=== PATIENT | male | born 1965 | race Caucasian/White ===

== ENCOUNTER 2020-08-26 10:15 | Inpatient (IN) | payer OTHER, SELFPAY ==
[~2020-08-26] VITALS: Ht 170.2 cm; Wt 69.9 kg
[2020-08-26 10:15] VITALS: BP 116/76
--- NOTE | 2020-08-26 10:30 | NUR ---
55 YEAR OLD MALE BIBA FOR SHORTNESS OF BREATHE X 4 DAYS. PT STATES HE TESTED COVID POSITIVE 4 DAYS AGO. PER EMS PT WAS 02 SATURATION IN 60S ON ROOM AIR. PT ARRIVED, PLACED ON 13L NRB MASK, O2 SATURATION 91%, RR 22. PT LUNGS CLEAR BL. PT AOX4, BREATHING EVEN AND UNLABORED, SKIN WARM AND DRY. BED IN LOWEST POSITION, LOCKED, BED RAIL UPX1. PT PLACED ON MONITOR, ERMD AWARE OF PT STATUS PMH - DENIES ALLERGIES - NKA
[2020-08-26] MEDS ORDERED: AZITHROMYCIN 500 MG in DEXTROSE 5% 250 ML IV ONE (10:35)
[2020-08-26] MEDS ORDERED: DEXAMETHASONE 10 MG/ML VIAL IVP ONE (10:35)
[2020-08-26 10:57] LABS: BASOPHILS # (AUTO) 0.1 K/uL (0.00-0.22); BASOPHILS % (AUTO) 0.4 % (0.0-2.0); HEMOGLOBIN 15.1 g/dL (12.0-18.0); LYMPHOCYTES # (AUTO) 0.6 K/uL (2.0-11.5); LYMPHOCYTES % (AUTO) 4.1 % (20.5-51.1); MEAN CORPUSCULAR HEMOGLOBIN 31 pg (27-31); MEAN CORPUSCULAR HGB CONC 34 g/dL (33-37); MEAN CORPUSCULAR VOLUME 89.9 fL (80-94); MONOCYTES # (AUTO) 0.9 K/uL (0.8-1.0); MONOCYTES % (AUTO) 6.4 % (1.7-9.3); NEUTROPHILS # (AUTO) 12.6 K/uL (1.8-7.7); NEUTROPHILS % (AUTO) 89.1 % (42.2-75.2); PLATELET COUNT (AUTO) 309 K/uL (140-450); RED BLOOD CELL COUNT(AUTO) 4.89 MIL/uL (4.20-6.10); WHITE BLOOD COUNT (AUTO) 14.2 K/uL (4.8-10.8)
[2020-08-26] MEDS ORDERED: cefTRIAXone 1,000 MG VIAL ONE (11:00)
--- NOTE | 2020-08-26 11:06 | NUR ---
[facility] [phone]
[2020-08-26 11:14] LABS: FIBRINOGEN 456 mg/dL (200-400); PROTHROMBIN TIME 10.4 secs (10.8-13.4)
[2020-08-26 11:20] LABS: ANION GAP 15.4 (8-16); CARBON DIOXIDE 24.4 mmol/L (21-32); LACTATE DEHYDROGENASE 762 U/L (85-227); POTASSIUM 3.8 mmol/L (3.5-5.1)
[2020-08-26 11:24] LABS: C-REACTIVE PROTEIN QUANT 3.8 mg/dL (0.0-0.9)
[2020-08-26 11:26] LABS: ALBUMIN 3.1 g/dL (3.4-5.0); TOTAL BILIRUBIN 0.4 mg/dL (0.0-1.0)
--- NOTE | 2020-08-26 11:34 | NUR ---
FLU AND COVID SWAB SENT TO LAB
[2020-08-26] MEDS ORDERED: AZITHROMYCIN 500 MG INJ VIAL IV ONE ×2 (11:39→12:42)
--- NOTE | 2020-08-26 12:00 | NUR ---
PT ALERT AND AWAKE, BREATHING EVEN AND LABORED ON NRB 15L. PT REMAINS ON MONITOR, TACHYPNEA
[2020-08-26 12:03] LABS: D-DIMER < 100 ng/ml (0-400)
[2020-08-26 12:13] LABS: APPEARANCE,URINE CLEAR (CLEAR); BILIRUBIN,URINE NEGATIVE (NEGATIVE); COLOR,URINE YELLOW (YELLOW); LEUKOCYTE ESTERASE ,URINE NEGATIVE (NEGATIVE); NITRITE, URINE NEGATIVE (NEGATIVE); PH,URINE 6.5 (5.0-9.0); UGLUCOSE NEGATIVE (NEGATIVE)
[2020-08-26 12:18] LABS: BLOOD, URINE 1+ (NEGATIVE); RBC,URINE 0-5 /HPF (0-5); WBC,URINE 0-5 /HPF (0-5)
--- NOTE | 2020-08-26 13:30 | NUR ---
PT ALERT AND AWAKE, BREATHING EVEN AND LABORED ON NRB 15L. PT REMAINS ON MONITOR, TACHYPNEA
[2020-08-26] MEDS ORDERED: POTASSIUM CHLORIDE 10 MEQ TABER PO PRN (13:40)
[2020-08-26] MEDS ORDERED: HYDROcodone/APAP 7.5/325 MG 1 TAB PO PRN (13:40)
[2020-08-26] MEDS ORDERED: DOCUSATE SODIUM 100 MG GELCAP PO PRN (13:40)
[2020-08-26] MEDS ORDERED: ALBUTEROL HFA MDI 90 MCG/ACTUATION 8 GM INH PRN (13:40)
[2020-08-26] MEDS ORDERED: ACETAMINOPHEN 325 MG TAB PO PRN (13:40)
[2020-08-26] MEDS ORDERED: ONDANSETRON 4 MG/2 ML VIAL IM/IVP PRN (13:40)
[2020-08-26 14:11] LABS: CHOL/HDL RATIO 4.2 (1-4.5); FREE T4 (FREE THYROXINE) 1.11 ng/dL (0.76-1.46); MAGNESIUM 2.4 mg/dL (1.8-2.4); PHOSPHORUS 3.5 mg/dL (2.5-4.9); THYROID STIMULATING HORMONE 0.42 uIU/mL (0.34-3.74)
[2020-08-26 14:44] LABS: BARBITURATE, URINE NEGATIVE ng/ml (NEG <=200); BENZODIAZEPINE, URINE NEGATIVE ng/mL (NEG <=200); CANNABINOID, URINE NEGATIVE ng/mL (NEG <=50); COCAINE, URINE NEGATIVE ng/mL (NEG <=300); OPIATE, URINE NEGATIVE ng/mL (NEG <=2000); PHENCYCLIDINE SCREEN,URINE NEGATIVE ng/mL (NEG <=25)
--- NOTE | 2020-08-26 15:30 | NUR ---
PT ALERT AND AWAKE, BREATHING EVEN AND LABORED ON NRB 15L. PT REMAINS ON MONITOR, TACHYPNEA
--- NOTE | 2020-08-26 16:30 | NUR ---
PT EATING LUNCH TRAY AT THIS TIME
[2020-08-26] MEDS ORDERED: MORPHINE SULFATE 4 MG/ML SYR IVP PRN (17:45)
--- NOTE | 2020-08-26 17:45 | NUR ---
PT ALERT AND AWAKE, BREATHING EVEN AND LABORED ON NRB 15L. PT REMAINS ON MONITOR, TACHYPNEA
[2020-08-26] MEDS ORDERED: MORPHINE SULFATE 4 MG/ML SYR ONE (17:59)
--- NOTE | 2020-08-26 18:09 | NUR ---
PRN MEDICATION FOR TACHYPNEA/DYSPNEA GIVEN PER VERBAL ORDER FROM PULMONOLOGY DOCTOR. PT UNDERSTANDS HE MUST BE IN PRONE POSITION FOR BETTER BREATHING. BEDSIDE COMMODE PLACED NEAR PT
--- NOTE | 2020-08-26 19:15 | NUR ---
REPORT RECEIVED FROM RUDDY SCHAEFER FOR CONTINUITY OF CARE
--- NOTE | 2020-08-26 19:35 | NUR ---
PT ON NON REBREATHER 15L. O2 SATURATION%. PT IN PRONE POSITION. A&OX4. WILL CONTINUE TO MONITOR.
--- NOTE | 2020-08-26 20:37 | NUR ---
PT'S DAUGHTER CALLED PAUL, UPDATED ON PT STATUS.
--- NOTE | 2020-08-26 22:15 | NUR ---
PT ON NON REBREATHER 15L. O2 SATURATION 94%. PT IN PRONE POSITION. A&OX4. WILL CONTINUE TO MONITOR.
--- NOTE | 2020-08-27 00:04 | NUR ---
PT HAS EYES CLOSED, RESPIRATIONS EVEN AND UNLABORED. CHEST RISE IS SYMMETRICAL. PT ON NON REBREATHER 15L. O2 SATURATION 91%. PT IN PRONE POSITION. WILL CONTINUE TO MONITOR.
--- NOTE | 2020-08-27 03:05 | NUR ---
VALERIE CALL FROM PT'S ADALGISA, UPDATED ON PT STATUS. ALL QUESTIONS AND CONCERNS ANSWERED AT THIS TIME.
--- NOTE | 2020-08-27 05:30 | NUR ---
PT HAS EYES CLOSED, RESPIRATIONS EVEN AND UNLABORED. CHEST RISE IS SYMMETRICAL. PT ON NON REBREATHER 15L. O2 SATURATION 93%. PT IN PRONE POSITION. WILL CONTINUE TO MONITOR.
--- NOTE | 2020-08-27 07:19 | NUR ---
REPORT GIVEN TO JANICE SCHAEFER FOR CONTINUITY OF CARE
--- NOTE | 2020-08-27 07:20 | NUR ---
REPORT RECIEVED FROM OLIVE WANG, TRANSFER OF CARE AT THIS TIME.
--- NOTE | 2020-08-27 08:00 | NUR ---
BREAKFAST TRAY PROVIDED TO PT. SUEDING MACHINE TENDER IN PLACE. BED LOCKED AND IN LOWEST POSITION.
[2020-08-27] MEDS: ZINC SULF 220 MG CAP PO SCH (08:47)
[2020-08-27] MEDS: ASCORBIC ACID 500 MG TAB PO SCH (08:48)
[2020-08-27] MEDS: ENOXAPARIN 40 MG/0.4 ML SYR SUBQ SCH (08:49)
[2020-08-27 08:59] LABS: BASOPHILS % (AUTO) 0.1 % (0.0-2.0); HEMATOCRIT 44.8 % (36-52); LYMPHOCYTES # (AUTO) 0.8 K/uL (2.0-11.5); LYMPHOCYTES % (AUTO) 6.7 % (20.5-51.1); MEAN CORPUSCULAR HEMOGLOBIN 31 pg (27-31); MEAN CORPUSCULAR HGB CONC 34 g/dL (33-37); MEAN CORPUSCULAR VOLUME 90.9 fL (80-94); MONOCYTES % (AUTO) 8.2 % (1.7-9.3); NEUTROPHILS # (AUTO) 10.2 K/uL (1.8-7.7); PLATELET COUNT (AUTO) 328 K/uL (140-450); RED BLOOD CELL COUNT(AUTO) 4.93 MIL/uL (4.20-6.10); RED CELL DISTRIBUTION WIDTH 14.1 % (11.6-13.7)
[2020-08-27] MEDS ORDERED: AZITHROMYCIN 250 MG TAB PO SCH (09:00)
--- NOTE | 2020-08-27 09:00 | NUR ---
PT PLACED ON 12L OXIMIZER. PT SATING AT 92%. INDUSTRIAL CHEMIST/O2 SAT IN PLACE. BED LOCKED AND IN LOWEST POSITION. ALL PT NEEDS MED AT THIS TIME.
[2020-08-27 09:11] LABS: ANION GAP 28.4 (8-16); CARBON DIOXIDE 13.5 mmol/L (21-32); CREATININE 0.9 mg/dL (0.6-1.3); POTASSIUM 3.9 mmol/L (3.5-5.1)
--- NOTE | 2020-08-27 10:00 | NUR ---
pt resting in bed. equal chest rise and fall. bed locked and in lowest position. day care worker/pulse ox in place, oximizer in place. bed locked and in lowest position. pt given water per request. all needs met at this time. call light in reach.
--- NOTE | 2020-08-27 12:00 | NUR ---
pt provided with lunch tray. health diagnostics teacher/pulse ox in place. equal chest rise and fall. pt denies pain or feeling of dizziness. pt sating at 91% 12L oximizer. call light in reach, urinal at bedside. all pt needs met at this time.
--- NOTE | 2020-08-27 13:41 | NUR ---
SOCIAL WORK NOTE: SW WAS UNABLE TO MEET PATIENT AT BEDSIDE DUE TO MEDICAL CONDITION. ROSENDO CONTACTED EMERGENCY CONTACT AND LEFT VM TO COMPLETE ASSESSMENT. SW WILL FOLLOW UP. Addendum: 08/27/20 at 1436 by Nasri Silverio Patient's Orientation Unable To Assess Information Provided By PAUL MILLS - DAUGHTER Comments SW WAS UNABLE TO MEET PATIENT AT BEDSIDE DUE TO MEDICAL CONDITION. ROSENDO COMPLETED ASSESSMENT WITH PATIENT'S DAUGHTER, PAUL. PER PAUL, PATIENT RENTS A ROOM AND IS FROM , BUT WILL TAKE TO HER RESIDENCE AT DISCHARGE. Backend Python Developer, Realtionship and Phone Number ADALGISA MILLS [phone] [facility] Power of Retail Pharmacist No Does Patient Have a POLST No Identifying Problems No Social Work Triggers Is A Social Work Consult Needed No Mandate Report Filed No Explanation Of Identifying Problems PATIENT IS A 55-YEAR-OLD MALE ADMITTED FOR COVID AND PNEUMONIA. PATIENT HAS NO PERTINENT PMHX. PER DAUGHTER, PATIENT HAS NO HISTORY OF MENTAL HEALTH OR SUBSTANCE ABUSE. Admitted From Home Pre-Admission Level Of Functioning Status Independent/Ambulatory Prior Resources/Services Used In Last 12 Months No Prior Resources Used Prior DME No Prior DME Used Dialysis Comments N/A Living Situation Lives Alone Rents A Room Other Living Situation/Comment PER DAUGHTER, PATIENT LIVES ALONE AND RENTS A ROOM. DAUGHTER STATED THAT PATIENT IS FROM . Patient Had Caregiver No Home Support No Caregiver Issues Financial Issues No Known Financial Issue Referral To The Financial Counselor Needed No Factors/Needs No D/C Needs Identified Explanation And Or Other Factors Affecting/Possible DC Needs DAUGHTER STATED THAT PATIENT'S WILL PICK PATIENT UP AT DISCHARGE AND ASSIST PATIENT AT HER RESIDENCE. Pt/Rep Participated In Discharge Plan Yes Patient/Family Agress With Discharge Plan Yes Discharge Plan Comments TENTATIVE DISCHARGE PLAN IS FOR PATIENT TO RETURN HOME. DC Plan Status Initiated
--- NOTE | 2020-08-27 16:08 | NUR ---
pt placed in prone position for comfort, pt placed on 15nrb. sating at 90%.
--- NOTE | 2020-08-27 16:30 | NUR ---
pt assisted to bedside commode
--- NOTE | 2020-08-27 17:30 | NUR ---
PT LAYING PRONE WITH [address] SATING AT 93%. ALL PT NEEDS MET AT THIS TIME. CALL LIGHT IN REACH.
--- NOTE | 2020-08-27 18:34 | NUR ---
DINNER TRAY PROVIDED TO PT. PT TRANSFERED FROM 15L NRB TO 15 L OXIMIZER FOR EATING. PULPER OPERATOR/PULSE OX IN PLACE.
--- NOTE | 2020-08-27 19:18 | NUR ---
REPORT GIVEN TO OLIVE WANG. TRANSFER OF CARE AT THIS TIME.
--- NOTE | 2020-08-27 19:18 | NUR ---
RECEIVED REPORT FROM OLIVE CAMACHO. TRANSFER OF CARE AT THIS TIME.
--- NOTE | 2020-08-27 20:03 | NUR ---
REPORT GIVEN TO OLIVE MENDENHALL.
--- NOTE | 2020-08-27 20:25 | NUR ---
Calvin mendez in [facility] - 08/27/20 at 2040 by MEDGUERLINE transfer of care to naseem doherty at this time.
--- NOTE | 2020-08-27 20:25 | NUR ---
PT ARRIVED FROM ED VIA GURNEY. RECEIVED REPORT PRIOR. PT AAOX4, AMBULATORY, ABLE TO MAKE NEEDS KNOWN. PT CALM AND COOPERATIVE TO CARE. PT WITH O2 15LPM/NON-REBREATHER MASK ON. PT NOT IN DISTRESS. O2 SAT 90%. ABDOMEN IS SOFT AND NON-TENDER, BOWEL SOUNDS PRESENT. SKIN IS WARM, DRY, AND INTACT. PT WITH IV ACCESS ON RIGHT FOREARM G20 PATENT AND INTACT, SALINE LOCKED. PT DENIES ANY PAIN OR DISCOMFORT AT THIS TIME. NO REQUESTS MADE. PT WELCOMED AND ORIENTED TO ROOM. VS STABLE. MRSA SWAB DONE. PT ENCOURAGED TO BE ON PRONE POSITION. POC DISCUSSED. PT AMENABLE TO INSTRUCTIONS AND TEACHINGS GIVEN. PT KEPT COMFORTABLE. SAFETY MEASURES IN PLACE. CALL LIGHT WITHIN REACH. WILL CONTINUE TO MONITOR.
--- NOTE | 2020-08-27 20:25 | NUR ---
Patient will be admitted to care of dr. byrd. Admited to tele. Will go to room 128b. Belongings list completed. Report to bessy.
[2020-08-27 20:30] VITALS: BP 130/72
--- NOTE | 2020-08-27 22:06 | NUR ---
ROUNDS MADE. PT IN PRONE POSITION RESTING. NRB MASK IN PLACE. PT NOT IN DISTRESS. O2 SAT 89%. PT DENIES ANY PAIN OR DISCOMFORT. NO REQUESTS MADE. SAFETY MEASURES IN PLACE. CALL LIGHT WITHIN REACH. WILL CONTINUE TO MONITOR.
[2020-08-28] VITALS: BP 137/78
[2020-08-28] MEDS ORDERED: ALBUTEROL HFA MDI 90 MCG/ACTUATION 8 GM INH PRN (00:05)
[2020-08-28] MEDS ORDERED: MAG SULF 2000 MG/WATER PREMIX 50 ML IV PRN (00:05)
[2020-08-28] MEDS ORDERED: POTASSIUM CHLORIDE 10 MEQ TABER PO PRN (00:05)
--- NOTE | 2020-08-28 00:16 | NUR ---
VITAL SIGNS STABLE. PT IN BED, ON PRONE POSITION. NON-REBREATHER MASK IN PLACE. PT NOT IN DISTRESS. CURRENT O2 SAT 93%. PT DENIES ANY PAIN OR DISCOMFORT AT THIS TIME. NO REQUESTS MADE. PT KEPT COMFORTABLE. SAFETY MEASURES IN PLACE. CALL LIGHT WITHIN REACH. WILL CONTINUE TO MONITOR.
--- NOTE | 2020-08-28 02:02 | NUR ---
PT SITTING IN BED. NON REBREATHER MASK IN PLACE. PT NOT IN DISTRESS. NO REQUESTS MADE. PT KEPT COMFORTABLE. SAFETY MEASURES IN PLACE. CALL LIGHT WITHIN REACH. WILL CONTINUE TO MONITOR.
--- NOTE | 2020-08-28 03:57 | NUR ---
VS STABLE. PT IN BED RESTING. NON-REBREATHER MASK IN PLACE. PT NOT IN DISTRESS. PT DENIES ANY PAIN OR DISCOMFORT. NO REQUESTS MADE AT THIS TIME. PT KEPT COMFORTABLE. SAFETY MEASURES IN PLACE. CALL LIGHT WITHIN REACH. WILL CONTINUE TO MONITOR.
[2020-08-28 04:00] VITALS: BP 143/89
[2020-08-28 05:58] LABS: BASOPHILS % (AUTO) 0.1 % (0.0-2.0); HEMATOCRIT 41.6 % (36-52); LYMPHOCYTES # (AUTO) 0.9 K/uL (2.0-11.5); LYMPHOCYTES % (AUTO) 7.7 % (20.5-51.1); MEAN CORPUSCULAR HEMOGLOBIN 31 pg (27-31); MEAN CORPUSCULAR HGB CONC 34 g/dL (33-37); MEAN CORPUSCULAR VOLUME 90.7 fL (80-94); MONOCYTES # (AUTO) 0.9 K/uL (0.8-1.0); MONOCYTES % (AUTO) 7.1 % (1.7-9.3); NEUTROPHILS # (AUTO) 10.5 K/uL (1.8-7.7); NEUTROPHILS % (AUTO) 85.1 % (42.2-75.2); PLATELET COUNT (AUTO) 375 K/uL (140-450); RED BLOOD CELL COUNT(AUTO) 4.59 MIL/uL (4.20-6.10); RED CELL DISTRIBUTION WIDTH 13.9 % (11.6-13.7); WHITE BLOOD COUNT (AUTO) 12.3 K/uL (4.8-10.8)
[2020-08-28 06:35] LABS: ANION GAP 14.5 (8-16); CARBON DIOXIDE 26.1 mmol/L (21-32); CREATININE 0.8 mg/dL (0.6-1.3); POTASSIUM 3.6 mmol/L (3.5-5.1)
--- NOTE | 2020-08-28 07:20 | NUR ---
RECEIVED REPORT FROM NIGHT RN. POC DISCUSSED. PT ON NRB 15L. NO SOB NOTED. NO S/S OF DISTRESS. WILL CONTINUE TO MONITOR.
--- NOTE | 2020-08-28 07:26 | NUR ---
ENDORSED TO DAY SHIFT NURSE FOR CONTINUITY OF CARE
[2020-08-28 08:00] VITALS: BP 145/91
[2020-08-28] MEDS: ENOXAPARIN 40 MG/0.4 ML SYR SUBQ SCH (08:30)
[2020-08-28] MEDS: ZINC SULF 220 MG CAP PO SCH (08:31)
[2020-08-28] MEDS: ASCORBIC ACID 500 MG TAB PO SCH (08:31)
[2020-08-28] MEDS: VITAMIN D 400 IU TAB PO SCH ×2 (08:33→09:00)
--- NOTE | 2020-08-28 08:44 | NUR ---
PATIENT HAS BEEN SCREENED AND CATEGORIZED MODERATE NUTRITION RISK. PATIENT WILL BE SEEN WITHIN 3-5 DAYS OF ADMISSION. 08/29/20 08/31/[address]
[2020-08-28 12:00] VITALS: BP 126/87
--- NOTE | 2020-08-28 12:30 | NUR ---
PT TOLERATED WELL WITH NRB @ 15 L. OBTAINED 95% O2 SAT.
--- NOTE | 2020-08-28 13:42 | NUR ---
DISCHARGE PLANNING: THIS IS A 55 Y/O MALE PATIENT FROM HOME, WHO CAME IN DUE TO SOB. NO PERTINENT PAST MEDICAL HISTORY. INITIAL DIAGNOSIS OF COVID PNEUMONIA. CURRENT LABS INCLUDE WBC 12.3, H/H 14.0/41.6, NA/K 142/3.6, BUN/CREA 23/0.8, FIBRINOGEN 456, D DIMER <100. COVID POSITIVE. ON DECADRON. ON 02 AT 15 LPM/NRB, O2 SAT 94%. CXR SHOWED INCOMPLETE EXPANDED LUNGS WITH BIBASAL ATELECTASIS, PATCHY MULTIFOCAL PERIPHERAL OPACITIES COMPATIBLE WITH HISTORY OF COVID 19 PNEUMONIA. ID AND PULMO CONSULTS IN PLACE. DC PLAN PENDING ON PATIENT'S RESPONSE TO TREATMENT. Addendum: 08/29/20 at 1213 by Radha Kemp CM STILL ON 15 L/NRB, O2 SAT 90%. WBC 14.7. SEEN BY BY ID - CONTINUE CURRENT THERAPY, PATIENT IS CURRENTLY OFF ANTIBIOTICS. SEEN BY PULMO - RECOMMENDED PRONING, CONT DEXAMETHASONE, HIGH RISK FOR DECOMPENSATION. Addendum: 08/30/20 at 1105 by Radha Kemp CM REMAINS ON 15 L NRB, 02 SAT 93%. CURRENT LABS INCLUDE WBC 14.7, H/H 15.4/45.1, LACTIC ACID 2.5, CRP 11.9. PER PULMO - CONT TO WEAN O2, ENCOURAGE PRONING. Addendum: 09/10/20 at 1418 by Radha Kemp CM REMAINS ON 15 L NON REBREATHER, O2 SAT 88%. ON ZOSYN, SOLU MEDROL. SEEN BY PULMO - WEAN O2. S/P REMDESIVIR AND CONVALESCENT PLASMA. Addendum: 09/17/20 at 1351 by Radha Hanna Realdijo CM REMAINS ON 15 L NON REBREATHER, O2 SAT 98%. ON SOLU MEDROL. WEAN O2, ENCOURAGE SELF PRONING. S/P REMDESIVIR. S/P CONVALESCENT PLASMA. Addendum: 10/05/20 at 0858 by Lakesha Brown CM STEVEN NETWORK DESKTOP SUPPORT SPECIALIST: RECEIVED ORDER TO ARRANGE HOME 02. SPOKE TO PATIENTS DAUGHTER PAUL REGARDING HOME 02. PATIENT DOES NOT HAVE ACTIVE INSURANCE BUT SHE MENTIONED THAT [facility] [employer] HAS BEEN TRYING TO CONTACT THE PATIENTS TO HELP PROCESS THE MEDI-MAXIME APPLICATION BUT THE HAS NOT BEEN HOME TO CHECK THE MAIL. SHE IS GOING TO LET PATIENTS KNOW THAT SHE SHOULD COMPLETE THE MEDI-MAXIME APPLICATION. PATIENTS FAMILY WANTS TO WAIT UNTIL MEDI-MAXIME APPLICATION GOES THROUGH TO SEE IF IT COVERS THE HOME OXYGEN Addendum: 10/10/20 at 1148 by Radha Kemp DISCUSSED HOME O2 ORDER TO PATIENT'S ADALGISA MILLS, SHE STATED SHE HAS THE PAPERWORKS NOW READY TO SUBMIT TO [facility]. EXPLAINED TO HER THAT THE PROCESSING WILL TAKE UP TO 30 DAYS. PER ADALGISA, [employer] AGENT SPOKE TO HER AND TOLD HER THAT THEY CAN EXPEDITE THE PROCESSING FOR 3 DAYS SINCE THEY HAVE STARTED THE APPLICATION ALREADY. INFORMED HER THAT I WILL FOLLOW UP WITH THE [employer] AGENT AND WILL LET HER KNOW IF I HEAR BACK FROM THEM. BUT IF IT WILL NOT BE EXPEDITED SHE IS WILLING TO PAY FOR THE O2. WILL FOLLOW UP. Addendum: 10/10/20 at 1235 by Lakesha Brown CM STEVEN BALES: FAXED ORDER FOR HOME O2 TO [facility]. WILL FOLLOW UP Addendum: 10/10/20 at 1618 by Lakesha Brown CM DC NETWORK DESKTOP SUPPORT SPECIALIST: FOLLOWED UP WITH PATIENTS ADALGISA MILLS SHE STATED THAT SHE IS WILLING TO PAY FOR THE HOME O2 BUT SHE WOULD LIKE TO WAIT UNTIL MEDI-MAXIME APPLICATION IS PROCESSED. SHE TURNED IT IN TODAY TO [facility]. SHE IS HOPING THAT THE PROCESS IS EXPEDITED. SHE STATED THAT IF PATIENT NEEDS OXYGEN STILL ONCE READY FOR DC AND APPLICATION HASN'T BEEN PROCESSED SHE WILL PAY. Addendum: 10/15/20 at 1157 by Lakesha Brown CM DC NETWORK DESKTOP SUPPORT SPECIALIST: FOLLOWED UP REGARDING PATIENTS MEDI-MAXIME APPLICATION STILL PENDING POLICY NUMBER. SPOKE TO LEELEE FROM [facility] AT THIS TIME THEY HAVE A SHORTAGE OF HOME O2 SO THEY CAN NOT FULFILL BOB PAY ORDERS. THEY ARE ONLY ACCEPTING IEHP AND MEDI-CARE PATIENTS AT THIS TIME. WILL CONTINUE TO FOLLOW UP WITH [facility] TO SEE WHEN THEY WILL BE ABLE TO ACCEPT BOB PAY. Addendum: 10/15/20 at 1410 by Radha Kemp CM REMAINS ON OXIMIZER AT 6 L, O2 SAT 99%. Addendum: 10/17/20 at 1159 by Lakesha Brown CM STEVEN BALES: REACHED OUT TO MULTIPLE OXYGEN COMPANIES INCLUDING [employer], [employer], [employer], [employer], [employer], [employer], AND [employer] THEY ARE ALL NOT ABLE TO SUPPLY OXYGEN FOR BOB PAY PATIENTS. THEY HAVE TO HONOR THEIR PATIENTS WHO ARE ASSIGNED TO A HEALTH PLAN. Addendum: 10/17/20 at 1534 by Lakesha Brown CM STEVEN BALES: DARCIE MCKOY AT [facility] FOR BOB PAY PATIENTS THEIR CORPORATE IS CHARGING UP FRONT FOR 3 MONTH SUPPLY OF OXYGEN. [facility] FOR HOME O2 FOR 3 MONTHS IS OVER $600 Addendum: 10/17/20 at 1618 by Radha Kemp DARCIE [facility]TI[facility], THEY ARE NOT ABLE TO PROVIDE O2 TO BOB PAYS AT THIS TIME DUE TO LOW VOLUME. THEY ARE ONLY ABLE TO PROVIDE FOR [facility] AND MEDICARE PATIENTS. Addendum: 10/17/20 at 1625 by Lakesha Brown STEVEN BALES: SPOKE TO PATIENTS ADALGISA [phone] REGARDING HOME O2 DISCUSSED WITH HER THAT PATIENTS MEDI-MAXIME IS STILL PENDING AND WE ARE TRYING TO SET UP THE HOME O2. SHE STATED SHE WOULD STILL LIKE TO WAIT FOR THE MEDI-MAXIME TO PROCESS BECAUSE SHE STILL DOES NOT KNOW WHEN HER PATIENT WILL BE DISCHARGED. WHEN IT COMES TIME FOR PATIENT TO BE DISCHARGED AND HIS MEDI-MAXIME STILL HAS NOT BEEN PROCESSED THEY ARE WILLING TO PAY. DISCUSSED WITH HER THAT [facility] IS NOW CHARGING PATIENTS FOR A 3 MONTH SUPPLY WHICH IS OVER $600. SHE IS AGREEABLE, HOWEVER LEELEE AT [facility] IS NOT ACCEPTING BOB PAY PATIENTS AT THIS TIME. NO OTHER KNOW COMPANIES THAT ALLOW BOB PAY. PER LOBITO [facility] WILL BE [facility]PPL[facility] CONCENTRATORS TO HELP OUT WITH THE BOB PAY PATIENTS. Addendum: 10/18/20 at 1248 by Radha Kemp CM PER LEELEE MILLER [facility], THEY ARE STILL UNABLE TO PROVIDE HOME O2 FOR BOB PAY PATIENTS ONLY [facility] AND MEDICARE. PER LEELEE I CAN FOLLOW UP TOMORROW BECAUSE THEY ARE EXPECTING DELIVERIES TONIGHT. DR. BEDOLLA MADE AWARE. Addendum: 10/19/20 at 1642 by Radha Kemp CM [facility], THEY ARE NOT ABLE TO PROVIDE PORTABLE TO BOB PAYS AT THIS TIME. PER PENELOPE, SOMEONE WILL BE CALLING ME BACK IF THEY ARE ABLE TO PROVIDE PORTABLE OXYGEN FOR BOB PAY. Addendum: 10/23/20 at 1445 by Lakesha Brown CM DC NETWORK DESKTOP SUPPORT SPECIALIST: RECEIVED A CALL FROM PATIENTS DAUGHTER SHE WANTED TO DISCUSS PATIENTS [facility] APPLICATION I ADVISED HER TO SPEAK TO [facility]. SHE SAID SHE WOULD CONTACT HIM. SHE ALSO STATED THAT THE DOCTOR DISCUSSED WITH HER THAT THE PATIENT IS ALMOST READY FOR DC. I EXPLAINED TO HER THAT WE ARE STILL HAVING TROUBLE GETTING HOME O2 FOR PATIENT. SHE EXPLAINED THAT THEY ARE WILLING AND READY TO PAY FOR HOME O2 HOWEVER I EXPLAINED TO HER THAT WE DO NOT HAVE ANY OXYGEN COMPANIES THAT ARE OFFERING BOB PAYMENT. Addendum: 10/23/20 at 1502 by Lakesha Brown CM DC NETWORK DESKTOP SUPPORT SPECIALIST: RECEIVED A CALL FROM [facility] PATIENTS DAUGHTER SHE SAID SHE SPOKE TO [facility] AND THEY ARE OFFERING TO PROVIDE HOME 02 FOR PATIENT BOB PAY Addendum: 10/23/20 at 1517 by Lakesha Brown CM STEVEN BALES: CONTACTED [facility] [phone] BUT GOT ROUTED TO THE CALL CENTER DUE TO HIGH CALL VOLUME. SPOKE TO THE REP RAMIREZ SHE MESSAGED THE [facility] TO CALL ME BACK DIRECTLY. Addendum: 10/23/20 at 6080 by Lakesha Brown CM STEVEN BALES: SPOKE TO PATIENTS SHE DIDN'T GET THE NAME OF WHO SHE SPOKE TO AT [facility] HOWEVER THEY ARE REQUESTING AN ORDER FOR HOME 02. SPOKE TO DR. BEDOLLA HE WILL PLACE AN ORDER. Addendum: 10/23/20 at 1628 by Lakesha Brown CM STEVEN BALES: FAXED ORDER FOR HOME O2 TO [facility] [phone] Addendum: 10/24/20 at 0923 by Lakesha Brown CM STEVEN DUMONTNER: I WAS ABLE TO SPEAK TO EAN THIS MORNING FROM THE [facility] LOCATION FOR [facility] [place] [phone] SHE WAS VERY HELPFUL. SHE STATED THAT THEY ARE ABLE TO OFFER PATIENT BOB PAY AT THIS TIME AND THAT SHE MAY BE ABLE TO RUN PATIENTS SOCIAL SECURITY NUMBER TO GET THE FAMILY A FREE MONTH THROUGH A GOVERNMENT PROGRAM. FAXED HER PATIENTS INFORMATION DIRECTLY TO [phone]. SHE WILL FORWARD IT TO THE [facility]. WILL CONTINUE TO FOLLOW UP Addendum: 10/24/20 at 1129 by Lakesha Brown CM STEVEN BALES: FOLLOWED UP WITH [facility] LOCATION [phone] AND SPOKE TO WHITNEY RIOS THIS PATIENT DOES NOT QUALIFY FOR HOME O2 TO BE COVERED UNDER THEIR PROGRAM BECAUSE HE IS NOW TESTING NEGATIVE. THE PATIENT MUST BE TESTING COVID POSITIVE IN THE LAST 30 DAYS. PATIENTS LAST POSITIVE TEST IS FROM AUGUST 26. THEY ARE UNABLE TO OFFER BOB PAY WELL. Addendum: 10/24/20 at 1136 by Lakesha Brown CM STEVEN BALES: NOTIFIED PATIENTS DAUGHTER PAUL Addendum: 10/24/20 at 1207 by Lakesha Brown CM STEVEN BALES: RECEIVED A CALL FROM [facility] SHE IS HELPING ASSIST FIND A COMPANY THAT IS ABLE TO PROVIDE HOME O2. SHE SPOKE TO SLADE AT [facility] [phone] AND THEY ARE ABLE TO PROVIDE PATIENT WITH HOME 02 BOB PAY. FAXED PATIENTS ORDER [phone] Addendum: 10/24/20 at 1500 by Lakesha Brown CM STEVEN BALES: FOLLOWED UP WITH SLADE AT [facility] SHE RECEIVED EVERYTHING SHE NEEDED SHE ASKED THAT I CALL BACK TOMORROW AFTER 12:00. NOTIFIED PATIENTS DAUGHTER PAUL Addendum: 10/25/20 at 1448 by Lakesha Brown CM DC NETWORK DESKTOP SUPPORT SPECIALIST: SPOKE TO PATIENTS DAUGHTER REGARDING HOME . IT WILL BE READY FOR HONEY EXTRACTOR BY 3:[address] BEDOLLA HE STATED THAT PATIENT MAY GO HOME TODAY ONCE THE FAMILY HAS THE HOME 02 Addendum: 10/25/20 at 1450 by Lakesha Brown CM DC NETWORK DESKTOP SUPPORT SPECIALIST: NOTIFIED OLIVE HAMILTON THAT PATIENT WILL BE DISCHARGED TODAY. DR BEDOLLA WILL PUT IN DC ORDER.
[2020-08-28 16:00] VITALS: BP 119/85
--- NOTE | 2020-08-28 19:20 | NUR ---
ENDORSED PT TO NIGHT RN. POC DISCUSSED. PT IS NOT IN DISTRESS. NO CHANGE OF CONDITION.
[2020-08-28 20:00] VITALS: BP 129/96
--- NOTE | 2020-08-28 20:00 | NUR ---
RECEIVED REPORT FROM DAY RN FOR CONTINUITY OF CARE.PT A/A/OX4, SITTING UP AT THE EDGE OF THE BED EATING DINNER. VSS, AFEBRILE, SATING 90% ON 15L NRB. SR ON ANIMAL HUMANE AGENT SUPERVISOR, HR-73. NO COMPLAIN AT THIS TIME. NOT IN ANY DISTRESS. CALL LIGHT WITHIN REACH. WILL CONTINUE POC AND MONITORING.
--- NOTE | 2020-08-28 22:00 | NUR ---
NO SCHEDULED MEDICATIONS FOR THE PT AT THIS TIME. PATIENT MOVED TO ROOM 131A.
--- NOTE | 2020-08-29 | NUR ---
PATIENTS VITAL SIGNS STABLE, AFEBRILE, SATING 90% ON 15L/NRB. SR ON PACKAGING LINE ATTENDANT, HR-74. NO COMPLAIN OF PAIN AT THIS TIME. NOT IN ANY DISTRESS.CALL LIGHT WITHIN REACH.
[2020-08-29 00:59] VITALS: BP 114/64
--- NOTE | 2020-08-29 01:59 | NUR ---
PATIENT ASLEEP AT THIS TIME. VISIBLE CHEST RISE AND FALL NOTED. SATING 90% ON 15L NRB. SAFETY MEASURES IN PLACED.
[2020-08-29 04:00] VITALS: BP 118/69
--- NOTE | 2020-08-29 04:00 | NUR ---
PATIENTS VITAL SIGNS STABLE, AFEBRILE, SATING 90% ON 15L NRB. SR ON SPECIMEN PROCESSOR, HR-89. NO COMPLAIN OF PAIN AT THIS TIME. NOT IN ANY DISTRESS.CALL LIGHT WITHIN REACH.
--- NOTE | 2020-08-29 06:02 | NUR ---
NO ACUTE EVENT THROUGHOUT THE NIGHT. PATIENT STABLE. NO SIGN AND SYMPTOMS OF DISTRESS NOTED. NO COMPLAIN AT THIS TIME. ALL NEEDS ATTENDED.C ALL LIGHT WITHIN REACH. WILL ENDORSE THE PT TO THE ONCOMING RN FOR CONTINUITY OF CARE.
[2020-08-29 06:19] LABS: BASOPHILS % (AUTO) 0.1 % (0.0-2.0); EOSINOPHILS % (AUTO) 0.3 % (0.0-4.0); HEMATOCRIT 45.1 % (36-52); HEMOGLOBIN 15.4 g/dL (12.0-18.0); LYMPHOCYTES # (AUTO) 1.4 K/uL (2.0-11.5); LYMPHOCYTES % (AUTO) 9.2 % (20.5-51.1); MEAN CORPUSCULAR HEMOGLOBIN 31 pg (27-31); MEAN CORPUSCULAR HGB CONC 34 g/dL (33-37); MEAN CORPUSCULAR VOLUME 90.8 fL (80-94); MONOCYTES # (AUTO) 0.7 K/uL (0.8-1.0); NEUTROPHILS # (AUTO) 12.6 K/uL (1.8-7.7); NEUTROPHILS % (AUTO) 85.4 % (42.2-75.2); PLATELET COUNT (AUTO) 439 K/uL (140-450); RED BLOOD CELL COUNT(AUTO) 4.97 MIL/uL (4.20-6.10); RED CELL DISTRIBUTION WIDTH 13.6 % (11.6-13.7); WHITE BLOOD COUNT (AUTO) 14.7 K/uL (4.8-10.8)
[2020-08-29 06:42] LABS: ALBUMIN 3.2 g/dL (3.4-5.0); ANION GAP 12.4 (8-16); CARBON DIOXIDE 27.7 mmol/L (21-32); CREATININE 0.9 mg/dL (0.6-1.3); MAGNESIUM 2.2 mg/dL (1.8-2.4); PHOSPHORUS 3.2 mg/dL (2.5-4.9); POTASSIUM 3.1 mmol/L (3.5-5.1); TOTAL BILIRUBIN 0.7 mg/dL (0.0-1.0)
--- NOTE | 2020-08-29 07:25 | NUR ---
RECEIVED REPORT FROM NIGHT NURSE PATIENT IS AAOX4 AMBULATORY, ON 15LPM OXYGEN VIA NON REBREATHER MASK, SKIN INTACT, IV SITE INTACT ON RIGHT FOREARM. SAFETY MEASURES IN PLACE AND CALL LIGHT WITHIN REACH. WILL CONTINUE TO MONITOR.
[2020-08-29 08:00] VITALS: BP 122/67
--- NOTE | 2020-08-29 08:15 | NUR ---
MEDICATION DUE GIVEN PATIENT STILL HAVING SHORTNESS OF BREATH AND ENCOURAGED TO DO BREATHING EXERCISES.
[2020-08-29] MEDS: VITAMIN D 400 IU TAB PO SCH (08:37)
[2020-08-29] MEDS: ZINC SULF 220 MG CAP PO SCH (08:38)
[2020-08-29] MEDS: ASCORBIC ACID 500 MG TAB PO SCH (08:38)
[2020-08-29] MEDS: ENOXAPARIN 40 MG/0.4 ML SYR SUBQ SCH (08:40)
--- NOTE | 2020-08-29 10:00 | NUR ---
MADE ROUND PATIENT IS SITTING AND OXYGEN LEVEL AT 88-90% EVERYTIME THE PATIENT MOVES.
[2020-08-29 12:00] VITALS: BP 126/78
--- NOTE | 2020-08-29 12:00 | NUR ---
ENCOURAGED PATIENT TO DO BREATHING EXERCISES TO INCREASE LUNG EXPANSION, NO DISTRESS NOTED
--- NOTE | 2020-08-29 15:00 | NUR ---
PATIENT TRANSFERRED TO ANOTHER ROOM PATIENT IS STABLE , NO DISTRESS NOTED.
[2020-08-29 16:00] VITALS: BP 126/94
--- NOTE | 2020-08-29 19:21 | NUR ---
ENDORSED TO NIGHT NURSE FOR CONTINUITY OF CARE PT IS STABLE
[2020-08-29 20:00] VITALS: BP 110/72
--- NOTE | 2020-08-29 20:00 | NUR ---
RECEIVED REPORT FROM DAY RN FOR CONTINUITY OF CARE.PT A/A/OX4, PATIENT SLEEP DURING ROUNDS. VSS, AFEBRILE, SATING 91% ON 15L NRB. SR WITH ST DEPRESSION ON REPAIRER SASH AND DOOR, HR-88. NO COMPLAIN AT THIS TIME. NOT IN ANY DISTRESS. CALL LIGHT WITHIN REACH. WILL CONTINUE POC AND MONITORING.
--- NOTE | 2020-08-29 22:00 | NUR ---
PATIENT WALKED TO THE BATHROOM TO URINATE AND WAS SHORT OF BREATH WHEN HE CAME BACK TO BED. PATIENT SATING 80 ON 4L/NC WITH EXERTION. PATIENT SETTLE DOWN AFTER 6 MINUTES AND HIS O2SAT WENT BACK UP TO 88% ON 4L/NC. WILL CONTINUE TO MONITOR THE PT.CALL LIGHT WITHIN REACH.
[2020-08-30] VITALS: BP 108/72
--- NOTE | 2020-08-30 | NUR ---
PATIENTS VITAL SIGNS STABLE, AFEBRILE, SATING 89% ON 15L/NRB. SR WITH ST DEPRESSION ON SUPERVISOR CAP AND HAT PRODUCTION, HR-96. NO COMPLAIN OF PAIN AT THIS TIME. NOT IN ANY DISTRESS.CALL LIGHT WITHIN REACH.
--- NOTE | 2020-08-30 02:00 | NUR ---
PATIENT ASLEEP AT THIS TIME. VISIBLE CHEST RISE AND FALL NOTED. SAFETY MEASURES IN PLACED.
--- NOTE | 2020-08-30 02:55 | NUR ---
PATIENT AWAKE AND SITTING UPRIGHT AT THE BED. SATING 89% ON15L NRB. PATIENT ASKED FOR JUICE AND MORE WATER. PROVIDED REQUESTED.
[2020-08-30 04:00] VITALS: BP 133/80
--- NOTE | 2020-08-30 04:00 | NUR ---
PATIENTS VITAL SIGNS STABLE, AFEBRILE, SATING 89% ON 15L/NRB. SR WITH ST DEPRESSION ON PROCUREMENT COST COORDINATOR, HR-97. NO COMPLAIN OF PAIN AT THIS TIME. NOT IN ANY DISTRESS.CALL LIGHT WITHIN REACH.
--- NOTE | 2020-08-30 07:39 | NUR ---
PT STABLE. ENDORSED PT TO DAY RN FOR CONTINUITY OF CARE. SIGNING OFF.
--- NOTE | 2020-08-30 07:41 | NUR ---
RECEIVED REPORT FROM NIGHT NURSE PATIENT IS AAOX4, AMBULATORY, SKIN INTACT, ON 15LPM NON RE BREATHER MASK, IV INTACT AND PATENT ON RIGHT FOREARM SALINE LOCK.SAFETY MEASURES IN PLACE AND CALL LIGHT WITHIN REACH. WILL CONTINUE TO MONITOR.
[2020-08-30 08:00] VITALS: BP 121/86
--- NOTE | 2020-08-30 09:00 | NUR ---
MEDICATION DUE GIVEN PATIENT FEES BETTER SATURATION AT 93% AND DESATURATES AT 80-82% WHEN GETTING OUT OF BED AND GOING TO THE BATHROOM.ENCOURAGED BREATHING EXERCISES AND PRONE POSITIONING WHEN LYING DOWN,
[2020-08-30] MEDS: VITAMIN D 400 IU TAB PO SCH (09:29)
[2020-08-30] MEDS: ZINC SULF 220 MG CAP PO SCH (09:30)
[2020-08-30] MEDS: ASCORBIC ACID 500 MG TAB PO SCH (09:30)
[2020-08-30] MEDS: ENOXAPARIN 40 MG/0.4 ML SYR SUBQ SCH (09:41)
[2020-08-30 11:41] LABS: ALBUMIN 2.9 g/dL (3.4-5.0); ANION GAP 16.1 (8-16); CARBON DIOXIDE 24.6 mmol/L (21-32); CREATININE 1.1 mg/dL (0.6-1.3); MAGNESIUM 2.3 mg/dL (1.8-2.4); PHOSPHORUS 2.8 mg/dL (2.5-4.9); POTASSIUM 3.7 mmol/L (3.5-5.1); TOTAL BILIRUBIN 0.5 mg/dL (0.0-1.0)
[2020-08-30 12:00] VITALS: BP 104/67
--- NOTE | 2020-08-30 12:00 | NUR ---
PATIENTS VITAL SIGNS STABLE, SINUS TACHYCARDIA AND SATING AT 90%. NO DISTRESS NOTED CALL LIGHT WITHIN REACH.
--- NOTE | 2020-08-30 14:00 | NUR ---
PATIENT NOT IN DISTRESS , SLEEPING SATURATION AT 91%.
[2020-08-30 16:00] VITALS: BP 129/74
--- NOTE | 2020-08-30 18:00 | NUR ---
MEDICATION DUE GIVEN, CHANGED IV ON THE RIGHT HAND PATENT AND INFUSING WELL.
[2020-08-30] MEDS: LEVOFLOXACIN 750 MG/D5W PREMIX 150 ML IV SCH (18:23)
--- NOTE | 2020-08-30 19:20 | NUR ---
RECEIVED BEDSIDE REPORT FROM DAYSHIFT NURSE. PATIENT IS ASLEEP AND LAYING IN A PRONE POSITION IV 20 G ON RH IS INTACT AND PATENT. PATIENT IS ON 15 L NRB AND O2 SAT 92. PLAN OF CARE WAS DISCUSSED. SAFETY MEASURES IN PLACE. BED IS IN LOW POSITION AND CALL LIGHT WITHIN REACH. WILL CONTINUE TO MONITOR.
--- NOTE | 2020-08-30 19:37 | NUR ---
ENDORSED TO NIGHT NURSE FOR CONTINUITY OF CARE. PT IS STABLE
[2020-08-30 20:00] VITALS: BP 130/80
--- NOTE | 2020-08-30 22:17 | NUR ---
HELPED PATIENT TO PRONE POSITION
[2020-08-31] VITALS: BP 139/82
--- NOTE | 2020-08-31 00:35 | NUR ---
CHECK ON PATIENT. PATIENT IS AWAKE AND LAYING IN PRONE POSITION. ON 15 L NRB. NO S/S RESPIRATORY DISTRESS NOTED. WILL CONTINUE TO MONITOR
--- NOTE | 2020-08-31 01:29 | NUR ---
CHECKED PATIENT. PATIENT SLEEPING RESPIRATION EVEN UNLABORED ON 15L NON-REBREATHER MASK. NO DISTRESS NOTED. WILL CONTINUE TO MONITOR
--- NOTE | 2020-08-31 03:24 | NUR ---
CHECKED ON PATIENT. PATIENT SLEEPING ON BED IN A PRONE POSITION. RESPIRATION EVEN AND UNLABORED ON 15 L NRB MASK. NO DISTRESS NOTED. WILL CONTINUE TO MONITOR.
[2020-08-31 04:00] VITALS: BP 115/64
--- NOTE | 2020-08-31 06:45 | NUR ---
CHECKED ON PATIENT. PATIENT AWAKE AND STABLE. EDUCATED ON LAYING PRONE TO ALLEVIATE HIS SHORTNESS OF BREATH. WILL CONTINUE TO MONITOR.
[2020-08-31 07:13] LABS: ALBUMIN 2.6 g/dL (3.4-5.0); ANION GAP 14.6 (8-16); CREATININE 0.9 mg/dL (0.6-1.3); MAGNESIUM 2.3 mg/dL (1.8-2.4); PHOSPHORUS 3.5 mg/dL (2.5-4.9); POTASSIUM 3.6 mmol/L (3.5-5.1); TOTAL BILIRUBIN 0.5 mg/dL (0.0-1.0)
--- NOTE | 2020-08-31 07:33 | NUR ---
ENDORSED TO DAY SHIFT NURSE FOR CONTINUITY OF CARE. PT IS STABLE. NO DISTRESS NOTED
[2020-08-31 08:00] VITALS: BP 119/69
--- NOTE | 2020-08-31 08:00 | NUR ---
RECEIVED REPORT FROM CHIEF OF PEDIATRIC UROLOGY FOR CONTINUITY OF CARE. PATIENT ALERT AWAKE ORIENTED X4,NOT IN ACUTE DISTRESS NOTED. INITIAL ASSESSMENT INITIATED. ON 15 L NRB SATURATING 96%.DENIES PAIN AT THIS TIME. ON MONITOR SHOWS SR. PATIENT REMAIN SITTING AT THE EDGE OF THE BED, HE SAID HE IS MORE COMFORTABLE IN THAT POSITION. NEEDS ATTENDED. WILL CONTINUE TO MONITOR.
[2020-08-31] MEDS: ZINC SULF 220 MG CAP PO SCH (09:07)
[2020-08-31] MEDS: VITAMIN D 400 IU TAB PO SCH (09:07)
[2020-08-31] MEDS: ENOXAPARIN 40 MG/0.4 ML SYR SUBQ SCH (09:08)
[2020-08-31] MEDS: ASCORBIC ACID 500 MG TAB PO SCH (12:10)
--- NOTE | 2020-08-31 12:36 | NUR ---
SEEN PATIENT REMAIN SITTING REFUSED TO LIE DOWN, WITH SOB, O2 SAT IS 95%, WILL CONTINUE TO MONITOR.
--- NOTE | 2020-08-31 14:01 | NUR ---
08/31/20 RD INITIAL ASSESSMENT COMPLETED PLEASE REFER TO NUTRITION ASSESSMENT UNDER CARE ACTIVITY FOR ESTIMATED NUTRITIONAL NEEDS. 1. RECOMMEND MECHANICAL SOFT DIET WITH ENSURE TID 2. ENCOURAGED PT INCREASE PO INTAKE AND PROTEIN INTAKE 3. RD TO FOLLOW-UP 3-5 DAYS, MODERATE RISK ROSARIO ROSARIO, RD
[2020-08-31 14:40] VITALS: BP 128/78
[2020-08-31] MEDS: LEVOFLOXACIN 750 MG/D5W PREMIX 150 ML IV SCH (18:11)
--- NOTE | 2020-08-31 19:20 | NUR ---
RECEIVED BEDSIDE REPORT FROM DAYSHIFT NURSE. PATIENT IS AWAKE, ALERT, AND ORIENTED X4. RESPIRATIONS IS EVEN AND UNLABORED WITH NO SIGNS OF RESPIRATORY DISTRESS. PATIENT IS ON 15 L NRB AND O2 SAT 94. SKIN IS WARM AND DRY. IV 20 G ON RFA IS INTACT AND PATENT. PATIENT IS ON 15 L NRB AND O2 SAT 92. PLAN OF CARE WAS DISCUSSED. SAFETY MEASURES IN PLACE. BED IS IN LOW POSITION AND CALL LIGHT WITHIN REACH. WILL CONTINUE TO MONITOR.
--- NOTE | 2020-08-31 19:43 | NUR ---
REPORT GIVEN TO THE TARE WORKER FOR CONTINUITY OF CARE. PATIENT IN STABLE CONDITION.
[2020-08-31 20:00] VITALS: BP 98/58
--- NOTE | 2020-08-31 21:30 | NUR ---
CHECKED ON PATIENT. PATIENT IS ASLEEP IN A PRONE POSITION. RESPIRATIONS EVEN AND UNLABORED. PATIENT IS ON 15 L NRB. SATING AT 94%. NO RESPIRATORY DISTRESS NOTED. WILL CONTINUE TO MONITOR
[2020-09-01] VITALS: BP 93/67
--- NOTE | 2020-09-01 00:15 | NUR ---
CHECKED ON PATIENT. PATIENT IS SLEEPING IN A RIGHT LATERAL POSITION. NO RESPIRATORY DISTRESS IS NOTED. WILL CONTINUE TO MONITOR
--- NOTE | 2020-09-01 02:14 | NUR ---
CHECKED ON PATIENT. EDUCATED PATIENT TO LAY IN A PRONE POSITION. O2 SAT WAS SATING AT 85%. PATIENT VERBALIZED UNDERSTANDING
[2020-09-01 04:00] VITALS: BP 103/66
--- NOTE | 2020-09-01 04:21 | NUR ---
CHECKED PATIENT. PATIENT IS ASLEEP AND STABLE. NO DISTRESS NOTED WILL CONTINUE TO MONITOR.
--- NOTE | 2020-09-01 07:15 | NUR ---
ENDORSED TO DAY SHIFT NURSE FOR CONTINUITY OF CARE. PT IS STABLE. NO DISTRESS NOTED
--- NOTE | 2020-09-01 07:15 | NUR ---
REC'D REPORT FROM DECK SUPERVISOR NURSE, PT ON 15L NON REBREATHER, CALL LIGHT WITHIN REACH, IV RF 20 G DRY, CLEAN INTACT.
--- NOTE | 2020-09-01 07:20 | NUR ---
REC'D REPORT FROM ACQUISITION CONSULTANT NURSE, PT ON 15L NRB MASK, IV SITE DRY, CLEAN ,INTACT. BED LOWEST POSITION. PT STATES HE IS COMFORTABLE AT THIS TIME. DENIES PAIN. CALL LIGHT WITHIN REACH.
[2020-09-01 08:12] LABS: ALBUMIN 2.5 g/dL (3.4-5.0); CARBON DIOXIDE 28.2 mmol/L (21-32); CREATININE 0.9 mg/dL (0.6-1.3); MAGNESIUM 2.4 mg/dL (1.8-2.4); PHOSPHORUS 3.5 mg/dL (2.5-4.9); POTASSIUM 4.2 mmol/L (3.5-5.1); TOTAL BILIRUBIN 0.5 mg/dL (0.0-1.0)
[2020-09-01] MEDS: VITAMIN D 400 IU TAB PO SCH (08:32)
[2020-09-01] MEDS: ASCORBIC ACID 500 MG TAB PO SCH (08:33)
[2020-09-01] MEDS: ENOXAPARIN 40 MG/0.4 ML SYR SUBQ SCH (08:34)
[2020-09-01] MEDS: ZINC SULF 220 MG CAP PO SCH (08:34)
--- NOTE | 2020-09-01 08:40 | NUR ---
SCHEDULED MEDICATIONS DUE GIVEN. WILL CONTINUE TO MONITOR.
--- NOTE | 2020-09-01 08:47 | NUR ---
ADMINISTERED MEDICATIONS ORDERED, PT A/OX4, IV SITE PATENT, INTACT. PT TOLERATED MED PASS WELL, BED LOWEST POSITION, CALL LIGHT WITHIN REACH. ON 16 NON REBREATHER, TOLERATING TREATMENT.
[2020-09-01 10:41] VITALS: BP 106/66
--- NOTE | 2020-09-01 11:09 | NUR ---
PT ON 15L NON REBREATHER, DOES NOT WISH TO LAY PRONE AT THIS TIME, STATES HE IS UNCOMFORTABLE, BUT WILL LAY ON STOMACH LATER. CURRENTLY SAT AT 87%, IV LINE DRY, CLEAN, INTACT. STATES HE IS COMFORTABLE, DENIES PAIN
--- NOTE | 2020-09-01 15:33 | NUR ---
PATIENT SITTING DOWN IN BED WATCHING TV. NO DISTRESS NOTED. CONDITION UNCHANGED. WILL CONTINUE TO MONITOR.
[2020-09-01 16:00] VITALS: BP 144/82
[2020-09-01] MEDS: LEVOFLOXACIN 750 MG/D5W PREMIX 150 ML IV SCH (18:05)
--- NOTE | 2020-09-01 18:35 | NUR ---
ADMINISTERED LEVAQUIN PER MD ORDER, PT ON 15L NRB TOLERATING MASK WELL, DENIES ANY SOB. PT COMFORTABLE IN BED
--- NOTE | 2020-09-01 19:10 | NUR ---
RECEIVED REPORT FROM DAY OLIVE HAMILTON. PT AOX4 ON 15L NRB. NO S/S RESPIRATORY DISTRESS. IV SITE 20G RFA, PATENT AND INTACT, S.L. SAFETY MEASURES IN PLACE. CALL LIGHT WITHIN REACH. WILL CONTINUE TO MONITOR
--- NOTE | 2020-09-01 19:29 | NUR ---
ENDORSED PT TO NIGHT NURSE, PT RESTING COMFORTABLY, BED LOWEST POSITION. CALL LIGHT WITHIN REACH. PT STABLE
[2020-09-01 20:00] VITALS: BP_SYST 104; BP_SYST 93; BP_DIAS 35; BP_DIAS 63
--- NOTE | 2020-09-01 21:23 | NUR ---
CALLED TO BEDSIDE PT DESAT LOW 80S PT WAS ASKED TO PRONE AGAIN AND SPO2 LEONORA TO 86% AND SLOWLY CLIMBING
--- NOTE | 2020-09-01 21:25 | NUR ---
PT AWAKE RESTING IN BED. DENIES SOB, DENIES PAIN. NO DISTRESS NOTED. WILL CONTINUE TO MONITOR
[2020-09-01 22:10] VITALS: BP 93/48
--- NOTE | 2020-09-02 01:56 | NUR ---
PT DESAT TO 75%, CALLED RT, ASKED PT TO PRONE. PT O2 SAT CLIMBING UP. PT IS STABLE, O2 SAT 91%. WILL CONTINUE TO MONITOR
--- NOTE | 2020-09-02 02:04 | NUR ---
CALLED TO BEDSIDE BY RN DUE TO PT DESAT IN 70s PT WAS ASKED TO SELF PRONE SPO2 LEONORA TO LOW 90s/HIGH 80s WILL CONTINUE TO MONITOR
[2020-09-02 04:00] VITALS: BP 116/74
--- NOTE | 2020-09-02 04:24 | NUR ---
PT ASLEEP IN BED. RESPIRATIONS EVEN AND UNLABORED. O2 SAT 91%. NO DISTRESS NOTED. WILL CONTINUE TO MONITOR
--- NOTE | 2020-09-02 06:37 | NUR ---
PT ASLEEP IN BED. NO DISTRESS NOTED. O2 SAT 96%
--- NOTE | 2020-09-02 07:15 | NUR ---
ENDORSED PT TO DAY RN FOR CONTINUITY OF CARE. PT IS IN STABLE CONDITION
[2020-09-02 08:03] VITALS: BP 131/78
--- NOTE | 2020-09-02 08:03 | NUR ---
PT FOUND LYING PRONE IN THE MORNING, PT STATED THAT HE HAS HAD A MODERATE AMOUNT OF SECRETIONS. PT STATES NO PAIN.
[2020-09-02 08:20] LABS: BASOPHILS % (AUTO) 0.3 % (0.0-2.0); EOSINOPHILS # (AUTO) 0.1 K/uL (0-0.4); EOSINOPHILS % (AUTO) 0.8 % (0.0-4.0); HEMATOCRIT 45.2 % (36-52); HEMOGLOBIN 15.1 g/dL (12.0-18.0); LYMPHOCYTES # (AUTO) 0.8 K/uL (2.0-11.5); MEAN CORPUSCULAR HEMOGLOBIN 30 pg (27-31); MEAN CORPUSCULAR HGB CONC 34 g/dL (33-37); MEAN CORPUSCULAR VOLUME 90.9 fL (80-94); MONOCYTES % (AUTO) 5.7 % (1.7-9.3); NEUTROPHILS # (AUTO) 15.4 K/uL (1.8-7.7); PLATELET COUNT (AUTO) 560 K/uL (140-450); RED BLOOD CELL COUNT(AUTO) 4.97 MIL/uL (4.20-6.10); RED CELL DISTRIBUTION WIDTH 13.7 % (11.6-13.7); WHITE BLOOD COUNT (AUTO) 17.3 K/uL (4.8-10.8)
[2020-09-02 08:29] LABS: ALBUMIN 2.5 g/dL (3.4-5.0); ANION GAP 13.4 (8-16); CARBON DIOXIDE 25.8 mmol/L (21-32); CREATININE 0.8 mg/dL (0.6-1.3); MAGNESIUM 2.2 mg/dL (1.8-2.4); PHOSPHORUS 4.1 mg/dL (2.5-4.9); POTASSIUM 4.2 mmol/L (3.5-5.1); TOTAL BILIRUBIN 0.4 mg/dL (0.0-1.0)
[2020-09-02 08:59] LABS: LYMPHOCYTES % (AUTO) 4.7 % (20.5-51.1); NEUTROPHILS % (AUTO) 88.5 % (42.2-75.2)
[2020-09-02] MEDS: ASCORBIC ACID 500 MG TAB PO SCH (09:22)
[2020-09-02] MEDS: VITAMIN D 400 IU TAB PO SCH (09:22)
[2020-09-02] MEDS: ZINC SULF 220 MG CAP PO SCH (09:22)
[2020-09-02] MEDS: ENOXAPARIN 40 MG/0.4 ML SYR SUBQ SCH (09:23)
[2020-09-02 12:00] VITALS: BP 131/78
--- NOTE | 2020-09-02 13:11 | NUR ---
PT IS STRETCHING SEMIFOWLERS IN BED, STATING THAT HIS CHEST IS SORE D/T LYING PRONE BUT IN NO PAIN. PT WAS GIVEN INCENTIVE SPIROMETER AND EDUCATED ON HOW TO USE IT.
--- NOTE | 2020-09-02 15:10 | NUR ---
PT SITTING AT BED AND STATED THAT HE HAS BEEN USING THE INCENTIVE SPIROMETER REACHING THE HIGHEST NUMBER OF 4000. PT STATES NO PAIN OR DISCOMFORT.
[2020-09-02 16:00] VITALS: BP 125/84
[2020-09-02] MEDS: LEVOFLOXACIN 750 MG/D5W PREMIX 150 ML IV SCH (17:38)
--- NOTE | 2020-09-02 18:57 | NUR ---
PT TOLERATING NRB 15 LPM AND STATE NO PAIN. RESTING IN BED, WILL ENDORSE CARE TO WEIGHER PRODUCTION RN.
--- NOTE | 2020-09-02 19:10 | NUR ---
RECEIVED BEDSIDE REPORT FROM DAY SHIFT NURSE. PT IN BED RESTING WITH HOB ELEVATED. PT AAOX4, AMBULATORY, ABLE TO MAKE NEEDS KNOWN. PT ON NON-REBREATHER MASK 15LPM. PT NOT IN DISTRESS. LUNG SOUNDS DIMINISHED. ABDOMEN IS SOFT AND NON-TENDER. SKIN IS, WARM, DRY, AND INTACT. PT WITH IV ACCESS ON RIGHT AC G22 PATENT AND INTACT. PT DENIES ANY PAIN OR DISCOMFORT AT THIS TIME. NO REQUESTS MADE. PT KEPT COMFORTABLE. SAFETY MEASURES IN PLACE. CALL LIGHT WITHIN REACH. WILL CONTINUE TO MONITOR.
[2020-09-02 20:53] VITALS: BP 84/60
--- NOTE | 2020-09-02 22:14 | NUR ---
PT COMPLAINING OF DISCOMFORT ON IV SITE AND REQUESTING IV SITE TO BE CHANGED. OLD IV ACCESS REMOVED, CANNULA INTACT. NEW IV ACCESS INSERTED ON LEFT FOREARM G20, PATENT AND INTACT WITH GOOD BLOOD RETURN. PT NOT IN DISTRESS NRM IN PLACE. CALL LIGHT WITHIN REACH. WILL CONTINUE TO MONITOR.
--- NOTE | 2020-09-02 22:46 | NUR ---
CALLED TO BEDSIDE PT DESAT PT WAS ASKED TO SELF PRONE AND CURRENTLY 86-89%
[2020-09-03] VITALS: BP 104/63
--- NOTE | 2020-09-03 00:06 | NUR ---
VS STABLE. PT ASSISTED TO PRONE POSITION. NON-REBREATHER MASK IN PLACE, PT NOT IN DISTRESS. DENIES ANY PAIN OR DISCOMFORT. PT KEPT COMFORTABLE. SAFETY MEASURES IN PLACE. CALL LIGHT WITHIN REACH. WILL CONTINUE TO MONITOR.
--- NOTE | 2020-09-03 02:26 | NUR ---
PT SLEEPING ON PRONE POSITION. NON-REBREATHER MASK IN PLACE. NO S/SX OF DISTRESS NOTED. VISIBLE CHEST RISE AND FALL NOTED. PT KEPT COMFORTABLE. SAFETY MEASURES IN PLACE, CALL LIGHT WITHIN REACH. WILL CONTINUE TO MONITOR.
--- NOTE | 2020-09-03 02:59 | NUR ---
ENDORSED TO NAREN WOLFF) FOR CONTINUITY OF CARE.
[2020-09-03 05:19] VITALS: BP 134/75
--- NOTE | 2020-09-03 06:26 | NUR ---
PATIENT IN BED. LAYING ON HIS STOMACH. WILL CONTINUE TO MONITOR.
--- NOTE | 2020-09-03 07:00 | NUR ---
RECEIVED REPORT FOR CONTINUITY OF CARE, PT IS STABLE.
[2020-09-03 08:00] VITALS: BP 102/66
[2020-09-03] MEDS: ENOXAPARIN 40 MG/0.4 ML SYR SUBQ SCH (08:22)
[2020-09-03] MEDS: ZINC SULF 220 MG CAP PO SCH (08:23)
[2020-09-03] MEDS: ASCORBIC ACID 500 MG TAB PO SCH (08:24)
--- NOTE | 2020-09-03 08:29 | NUR ---
ADMINISTERED SCHEDULED MEDICATION, MEDICATION EDUCATION PROVIDED, PT NODDED UNDERSTANDING, PT TOLERATED WELL. PT IS STABLE ON PRONE POSITION. WILL CONTINUE TO MONITOR
[2020-09-03 08:34] LABS: BASOPHILS % (AUTO) 0.3 % (0.0-2.0); EOSINOPHILS % (AUTO) 0.3 % (0.0-4.0); HEMATOCRIT 43.7 % (36-52); HEMOGLOBIN 14.7 g/dL (12.0-18.0); LYMPHOCYTES # (AUTO) 0.7 K/uL (2.0-11.5); LYMPHOCYTES % (AUTO) 4.8 % (20.5-51.1); MEAN CORPUSCULAR HEMOGLOBIN 31 pg (27-31); MEAN CORPUSCULAR HGB CONC 34 g/dL (33-37); MEAN CORPUSCULAR VOLUME 90.6 fL (80-94); MONOCYTES # (AUTO) 0.7 K/uL (0.8-1.0); MONOCYTES % (AUTO) 4.7 % (1.7-9.3); NEUTROPHILS # (AUTO) 13.1 K/uL (1.8-7.7); NEUTROPHILS % (AUTO) 89.9 % (42.2-75.2); PLATELET COUNT (AUTO) 507 K/uL (140-450); RED BLOOD CELL COUNT(AUTO) 4.82 MIL/uL (4.20-6.10); WHITE BLOOD COUNT (AUTO) 14.6 K/uL (4.8-10.8)
[2020-09-03 09:04] LABS: ALBUMIN 2.4 g/dL (3.4-5.0); ANION GAP 10.1 (8-16); CARBON DIOXIDE 26.3 mmol/L (21-32); CREATININE 0.7 mg/dL (0.6-1.3); POTASSIUM 4.4 mmol/L (3.5-5.1); TOTAL BILIRUBIN 0.5 mg/dL (0.0-1.0)
--- NOTE | 2020-09-03 11:40 | NUR ---
PT IS PRONING, PT IS STABLE, WILL CONTINUE TO MONITOR.
[2020-09-03 12:00] VITALS: BP 115/68
--- NOTE | 2020-09-03 13:00 | NUR ---
PT SITTING IN BED, PT IS STABLE, WILL CONTINUE TO MONITOR.
--- NOTE | 2020-09-03 15:00 | NUR ---
PT IS STABLE, NO SIGNS OF DISTRESS NOTED, WILL CONTINUE TO MONITOR
[2020-09-03 16:00] VITALS: BP 115/78
[2020-09-03] MEDS: LEVOFLOXACIN 750 MG/D5W PREMIX 150 ML IV SCH (17:32)
--- NOTE | 2020-09-03 17:44 | NUR ---
ADMINISTERED SCHEDULED MEDICATION, MEDICATION EDUCATION PROVIDED, PT VERBALIZED UNDERSTANDING, PT TOLERATED WELL, PT IS STABLE, WILL CONTINUE TO MONITOR.
--- NOTE | 2020-09-03 19:30 | NUR ---
ENDORSE PT TO NIGHT NURSE FOR CONTINUITY OF CARE, PT IS STABLE
--- NOTE | 2020-09-03 19:35 | NUR ---
RECEIVED PATIENT FROM AM SHIFT NURSE FOR CONTINUITY OF CARE. AAOX4. RESPIRATIONS EVEN, UNLABORED. CONTINUES ON O2 15L VIA NRB. 02SAT 90%. NO C/O PAIN. NO S/S ACUTE DISTRESS. SKIN WARM, DRY. IV SITE TO RIGHT AC 22G PATENT/INTACT, INFUSING FLUIDS WELL. ABDOMEN SOFT, NONTENDER, NONDISTENDED. BOWEL SOUNDS ACTIVE X4 QUADRANTS. PATIENT IS CONTINENT OF B/B. CALL LIGHT WITHIN REACH. SAFETY PRECAUTIONS IN PLACE. ISOLATION PRECAUTIONS OBSERVED BY ALL STAFF.
[2020-09-03 20:00] VITALS: BP 109/56
--- NOTE | 2020-09-03 21:30 | NUR ---
PATIENT RESTING COMFORTABLY IN BED. NO S/S ACUTE DISTRESS. CALL LIGHT WITHIN REACH. SAFETY PRECAUTIONS IN PLACE. ISOLATION PRECAUTIONS OBSERVED BY ALL STAFF.
--- NOTE | 2020-09-03 23:00 | NUR ---
PATIENT ASLEEP. NO S/S ACUTE DISTRESS. CALL LIGHT WITHIN REACH. SAFETY PRECAUTIONS IN PLACE. ISOLATION PRECAUTIONS OBSERVED BY ALL STAFF.
[2020-09-04] VITALS: BP 121/79
--- NOTE | 2020-09-04 01:00 | NUR ---
MADE ROUNDS. PATIENT IS ASLEEP. NO S/S ACUTE DISTRESS. CALL LIGHT WITHIN REACH. SAFETY PRECAUTIONS IN PLACE. ISOLATION PRECAUTIONS OBSERVED BY ALL STAFF.
[2020-09-04 06:33] VITALS: BP 123/75
--- NOTE | 2020-09-04 07:10 | NUR ---
RECEIVED PT FROM DOCTORATE OF CHIROPRACTIC NURSE, PT IS AWAKE AND ALERT, SEATED ON THE BED, SAFETY PRECAUTION IN PLACE, PT IS ON NRB MASK AT 15L O2, SATURATING AT 88%, IV LINE NOTED ON THE LEFT FA G. 20 ON SALINE LOCK, PT IS IRISH SPEAKING, NO SIGN OF DISTRESS NOTED, DENIES PAIN AND WILL MONITOR PT.
[2020-09-04 08:00] VITALS: BP 110/76
[2020-09-04 08:06] LABS: BASOPHILS % (AUTO) 0.2 % (0.0-2.0); EOSINOPHILS % (AUTO) 0.1 % (0.0-4.0); HEMOGLOBIN 14.7 g/dL (12.0-18.0); LYMPHOCYTES # (AUTO) 0.5 K/uL (2.0-11.5); LYMPHOCYTES % (AUTO) 3.4 % (20.5-51.1); MEAN CORPUSCULAR HEMOGLOBIN 30 pg (27-31); MEAN CORPUSCULAR HGB CONC 33 g/dL (33-37); MEAN CORPUSCULAR VOLUME 91.1 fL (80-94); MONOCYTES # (AUTO) 0.8 K/uL (0.8-1.0); MONOCYTES % (AUTO) 5.2 % (1.7-9.3); NEUTROPHILS # (AUTO) 14.6 K/uL (1.8-7.7); NEUTROPHILS % (AUTO) 91.1 % (42.2-75.2); PLATELET COUNT (AUTO) 555 K/uL (140-450); RED BLOOD CELL COUNT(AUTO) 4.83 MIL/uL (4.20-6.10); RED CELL DISTRIBUTION WIDTH 13.6 % (11.6-13.7); WHITE BLOOD COUNT (AUTO) 16.1 K/uL (4.8-10.8)
[2020-09-04] MEDS: ZINC SULF 220 MG CAP PO SCH (08:25)
--- NOTE | 2020-09-04 08:25 | NUR ---
PT WAS GIVEBN THE SCHEDULED AM MEDICATIONS NOW, TOLERATED, TEACHINGS GIVEN AND WILL MONITOR PT
[2020-09-04] MEDS: ENOXAPARIN 40 MG/0.4 ML SYR SUBQ SCH (08:27)
[2020-09-04 08:29] LABS: ANION GAP 15.2 (8-16); CREATININE 0.9 mg/dL (0.6-1.3); POTASSIUM 4.2 mmol/L (3.5-5.1)
[2020-09-04] MEDS: ASCORBIC ACID 500 MG TAB PO SCH (11:13)
--- NOTE | 2020-09-04 11:17 | NUR ---
PT IS LYING PRONE IN BED, CURRENT O2 SAT 91, WILL CONTINUE TO MONITOR.
[2020-09-04 12:00] VITALS: BP 129/80
--- NOTE | 2020-09-04 13:15 | NUR ---
PT IS RESTING NOW, NO SIGN OF DISTRESS NOTED, SATURATING AT 93%.
[2020-09-04 16:00] VITALS: BP 124/96
[2020-09-04] MEDS: LEVOFLOXACIN 750 MG/D5W PREMIX 150 ML IV SCH (17:33)
--- NOTE | 2020-09-04 17:33 | NUR ---
PT WAS GIVEN IVPB MEDICATION NOW, WILL MONITOR PT.
--- NOTE | 2020-09-04 19:20 | NUR ---
ENDORSED PT TO UMBRELLA TIPPER NURSE FOR CONTINUITY OF CARE.
--- NOTE | 2020-09-04 19:30 | NUR ---
RECEIVED PT SITTING UP ON BED JUST FINISHED EATING DINNER, CONSUMED 70%, SWITCH OXYGEN FROM OXIMIZER TO NRB MASK 15L, SAT-88-90%, NO SIGNS OF RESP DISTRESS, MAINTAINED ON DROPLET PRECAUTION, PLAN OF CARE DISCUSSED, SAFETY MEASURES IN PLACE, CALL LIGHT WITHIN REACH.
[2020-09-04 20:00] VITALS: BP 119/46
--- NOTE | 2020-09-04 21:40 | NUR ---
PT SLEEPING SUPINE, 90% SAT, NO SIGNS OF RESP DISTRESS, ALL NEEDS ATTENDED.
--- NOTE | 2020-09-04 23:00 | NUR ---
ROUNDS MADE, SEEN PT SLEEPING ON PRONE POSITION, SAT-97%, NO RESP DISTRESS NOTED, MONITORED CLOSELY.
[2020-09-05] VITALS: BP 119/75
[2020-09-05 04:00] VITALS: BP 111/70
--- NOTE | 2020-09-05 04:00 | NUR ---
PT SLEEPING ON A PRONE POSITION, SAT-96%, NO SIGNS OF RESP DISTRESS, MONITORED CLOSELY.
--- NOTE | 2020-09-05 07:30 | NUR ---
PT SLEEPING, NO SIGNS OF DISTRESS, REPORT GIVEN TO OLIVE GARCIA FOR CONTINUITY OF CARE.
[2020-09-05 08:00] VITALS: BP 127/79
--- NOTE | 2020-09-05 08:00 | NUR ---
RECEIVED REPORT FROM TOBACCO STRIPPER FOR CONTINUITY OF CARE. PATIENT IS ALERT AWAKE ORIENTED X4, NOT IN ACUTE DISTRESS NOTED. ON 15L NRB, SATURATING 92%. ON MONITOR SHOWS ST WITH PVC. DENIES PAIN. NEEDS ATTENDED. WILL CONTINUE TO MONITOR.
[2020-09-05 08:25] LABS: BASOPHILS % (AUTO) 0.2 % (0.0-2.0); EOSINOPHILS # (AUTO) 0.1 K/uL (0-0.4); EOSINOPHILS % (AUTO) 0.3 % (0.0-4.0); HEMATOCRIT 45.4 % (36-52); HEMOGLOBIN 15.2 g/dL (12.0-18.0); LYMPHOCYTES # (AUTO) 0.9 K/uL (2.0-11.5); LYMPHOCYTES % (AUTO) 4.9 % (20.5-51.1); MEAN CORPUSCULAR HEMOGLOBIN 31 pg (27-31); MEAN CORPUSCULAR HGB CONC 33 g/dL (33-37); MEAN CORPUSCULAR VOLUME 91.3 fL (80-94); MONOCYTES # (AUTO) 1.1 K/uL (0.8-1.0); MONOCYTES % (AUTO) 5.7 % (1.7-9.3); NEUTROPHILS % (AUTO) 88.9 % (42.2-75.2); PLATELET COUNT (AUTO) 549 K/uL (140-450); RED BLOOD CELL COUNT(AUTO) 4.97 MIL/uL (4.20-6.10); RED CELL DISTRIBUTION WIDTH 13.9 % (11.6-13.7); WHITE BLOOD COUNT (AUTO) 19.1 K/uL (4.8-10.8)
[2020-09-05 08:50] LABS: ANION GAP 12.9 (8-16); CARBON DIOXIDE 31.7 mmol/L (21-32); CREATININE 0.9 mg/dL (0.6-1.3); POTASSIUM 5.6 mmol/L (3.5-5.1)
[2020-09-05] MEDS: ASCORBIC ACID 500 MG TAB PO SCH (09:59)
[2020-09-05] MEDS: ZINC SULF 220 MG CAP PO SCH (09:59)
[2020-09-05] MEDS: ENOXAPARIN 40 MG/0.4 ML SYR SUBQ SCH (10:01)
[2020-09-05 12:00] VITALS: BP 128/86
--- NOTE | 2020-09-05 12:00 | NUR ---
PATIENT DENIES PAIN. AND DAUGHTER CALLED AND UPDATED ON THE PATIENT CONDITION. NOTIFY PATIENT THAT FAMILY CALLED.
[2020-09-05] MEDS ORDERED: SODIUM ZIRCONIUM CYCLOSILICATE 10 GM POWD.PACK PO SCH ×2 (12:25→13:00)
[2020-09-05] MEDS ORDERED: FUROSEMIDE 20 MG/2 ML VIAL IVP SCH (13:00)
--- NOTE | 2020-09-05 15:40 | NUR ---
09/05/20 RD FOLLOW UP COMPLETED PLEASE REFER TO NUTRITION ASSESSMENT UNDER CARE ACTIVITY FOR ESTIMATED NUTRITIONAL NEEDS. 1. RECOMMEND MECHANICAL SOFT DIET WITH ENSURE TID 2. ENCOURAGED PT INCREASE PO INTAKE AND PROTEIN INTAKE 3. RD TO FOLLOW-UP 3-5 DAYS, MODERATE RISK ROSARIO ROSARIO, RD
[2020-09-05 16:00] VITALS: BP 115/74
--- NOTE | 2020-09-05 16:00 | NUR ---
RESTING IN BED, NOT IN DISTRESS NOTED. WILL CONTINUE TO9 MONITOR.
[2020-09-05] MEDS: LEVOFLOXACIN 750 MG/D5W PREMIX 150 ML IV SCH (17:23)
--- NOTE | 2020-09-05 18:00 | NUR ---
PATIENT ON PRONING POSITION, TOLERATING WELL. ON 15L NRB. WILL CONTINUE TO MONITOR.
--- NOTE | 2020-09-05 19:36 | NUR ---
REPORT GIVEN TO THE BIOTECHNICIAN FOR CONTINUITY OF CARE. IN STABLE CONDITION.
--- NOTE | 2020-09-05 19:40 | NUR ---
RECEIVED PT IN STABLE CONDITION FROM AM NURSE. AWAKE,ALERT AND ORIENTED X4. TELE PT. ON DROPLET ISOLATION DUE TO COVID 19 +. ON O2 15/NRM. LYING PRONE AT THIS TIME. IV ACCESS RT AC G#22. CLEAR AND PATENT. ENCOURAGED TO DO THE SAME TO HELP HIM BREATH BETTER. VERBALIZED UNDERSTANDING. FREQ ROUNDS NEEDED. BED ON LOW POSITION. CALL LIGHT AND URINAL WITHIN REACH. WILL CONTINUE TO MONITOR.
[2020-09-05 20:00] VITALS: BP 124/81
[2020-09-05] MEDS: methylPREDNISolone SS 40 MG/ML VIAL IVP SCH (20:24)
--- NOTE | 2020-09-05 21:00 | NUR ---
,MADE ROUNDS. PT ASLEEP. BUT SOLU MEDROL IV WAS ABLE TO ADMINISTER. NO SOB NOTED.
--- NOTE | 2020-09-05 23:00 | NUR ---
CHECKED ON PT. ASLEEP ON PRONE POSITION. NO SOB NOTED.
[2020-09-06] VITALS: BP 125/57
--- NOTE | 2020-09-06 01:30 | NUR ---
MADE ROUNDS. PT SLEEPING ON PRONED POSITION. NO DISCOMFORT NOR SOB NOTED.
--- NOTE | 2020-09-06 03:30 | NUR ---
MADE ROUNDS.SLEEPING WELL. NO SOB NOTED.
[2020-09-06 04:05] VITALS: BP 137/86
--- NOTE | 2020-09-06 06:00 | NUR ---
CHECKED ON PT. ASLEEP. ON 15L NRM. NO SOB NOTED.
--- NOTE | 2020-09-06 07:30 | NUR ---
ENDORSED PT IN STABLE CONDITION TO AM NURSE.
--- NOTE | 2020-09-06 07:34 | NUR ---
RECEIVED REPORT FROM NIGHT NURSE PATIENT IS SLEEPING, ON 15LPM NON RE BREATHER MASK, AMBULATORY, SKIN INTACT AND IV SITES INTACT AND PATENT ON RIGHT AC, ON REGULAR DIET. SAFETY MEASURES IN PLACE AND CALL LIGHT WITHIN REACH. WILL CONTINUE TO MONITOR.
[2020-09-06 07:59] LABS: BASOPHILS % (AUTO) 0.2 % (0.0-2.0); HEMATOCRIT 45.7 % (36-52); HEMOGLOBIN 15.3 g/dL (12.0-18.0); LYMPHOCYTES # (AUTO) 0.5 K/uL (2.0-11.5); LYMPHOCYTES % (AUTO) 3.5 % (20.5-51.1); MEAN CORPUSCULAR HEMOGLOBIN 30 pg (27-31); MEAN CORPUSCULAR HGB CONC 33 g/dL (33-37); MEAN CORPUSCULAR VOLUME 90.9 fL (80-94); MONOCYTES # (AUTO) 0.6 K/uL (0.8-1.0); MONOCYTES % (AUTO) 4.1 % (1.7-9.3); NEUTROPHILS # (AUTO) 14.2 K/uL (1.8-7.7); NEUTROPHILS % (AUTO) 92.2 % (42.2-75.2); PLATELET COUNT (AUTO) 532 K/uL (140-450); RED BLOOD CELL COUNT(AUTO) 5.03 MIL/uL (4.20-6.10); RED CELL DISTRIBUTION WIDTH 13.6 % (11.6-13.7); WHITE BLOOD COUNT (AUTO) 15.4 K/uL (4.8-10.8)
[2020-09-06 08:00] VITALS: BP 115/79
[2020-09-06 08:18] LABS: ANION GAP 14.1 (8-16); CARBON DIOXIDE 29.2 mmol/L (21-32); CREATININE 0.8 mg/dL (0.6-1.3); POTASSIUM 4.3 mmol/L (3.5-5.1)
[2020-09-06] MEDS: ZINC SULF 220 MG CAP PO SCH (08:54)
[2020-09-06] MEDS: ASCORBIC ACID 500 MG TAB PO SCH (08:55)
[2020-09-06] MEDS: methylPREDNISolone SS 40 MG/ML VIAL IVP SCH ×2 (08:55→20:58)
[2020-09-06] MEDS: ENOXAPARIN 40 MG/0.4 ML SYR SUBQ SCH (09:05)
--- NOTE | 2020-09-06 09:30 | NUR ---
MEDICATION DUE GIVEN AT THIS TIME NO DISTRESS NOTED AND DENIES PAIN
[2020-09-06 12:00] VITALS: BP 114/85
--- NOTE | 2020-09-06 12:00 | NUR ---
MADE ROUNDS PATIENT IS EATING AND ABLE TO EAT WELL. ENCOURAGED TO WALK AROUND THE ROOM AND DO SOME EXERCISES.
--- NOTE | 2020-09-06 14:00 | NUR ---
PATIENT IS DOING THE INCENTIVE SPIROMETRY EXERCISES 3 SETS 5X AT 500 ML.
[2020-09-06 16:00] VITALS: BP 125/74
--- NOTE | 2020-09-06 16:30 | NUR ---
PATIENT IS LYING ON PRONE POSITION AND ABLE TO TOLERATE IT WELL.
[2020-09-06] MEDS: LEVOFLOXACIN 750 MG/D5W PREMIX 150 ML IV SCH (17:39)
--- NOTE | 2020-09-06 17:50 | NUR ---
MEDOICATION DUE GIVEN AND INFUSING WELL
--- NOTE | 2020-09-06 19:21 | NUR ---
ENDORSED TO NIGHT NURSE FOR CONTINUITY OF CARE. PT IS STABLE
--- NOTE | 2020-09-06 19:25 | NUR ---
RECEIVED PT IN STABLE CONDITION FROM AM NURSE. AWAKE,ALERT AND ORIENTED X4. TELE PT. ON DROPLET ISOLATION DUE TO COVID 19+. ON O2 15L NRM. NO SOB NOTED. HAS IV ACCESS ON THE RT AC G#20. CLEAR AND PATENT. PLAN OF CARE DISCUSSED AND VERBALIZED UNDERSTANDING. FREQ ROUNDS NEEDED. BEDREST. SIDE RAILS UP X2. CALL LIGHT AND URINAL PLACED WITHIN EASY REACH. INSTRUCTED TO CALL FOR ANY PROBLEM AND ASSISTANCE NEEDED. WILL CONTINUE TO MONITOR.
[2020-09-06 20:00] VITALS: BP 131/82
--- NOTE | 2020-09-06 21:00 | NUR ---
DUE MEDS GIVEN. IV ACCESS ,FLUSHED WITH NS ,HL
--- NOTE | 2020-09-06 23:00 | NUR ---
CHECKED ON PT. SLEEPING ON PRONED POSITION. NO DISTRESS NOTED. ,
[2020-09-07 00:30] VITALS: BP 124/75
--- NOTE | 2020-09-07 00:30 | NUR ---
PT ASLEEP. NO SOB NOTED. ON PRONED POSITION.
--- NOTE | 2020-09-07 02:00 | NUR ---
MADE ROUNDS. PT IS AWAKE. NO C/O ANY DISCOMFORT NOR ANY DISTRESS NOTED.
[2020-09-07 04:00] VITALS: BP 121/77
--- NOTE | 2020-09-07 05:00 | NUR ---
PT ASLEEP PRONED POSITION. NO SOB NOTED.
[2020-09-07 07:02] LABS: BASOPHILS % (AUTO) 0.2 % (0.0-2.0); EOSINOPHILS % (AUTO) 0.1 % (0.0-4.0); HEMOGLOBIN 15.3 g/dL (12.0-18.0); LYMPHOCYTES # (AUTO) 0.5 K/uL (2.0-11.5); LYMPHOCYTES % (AUTO) 3.6 % (20.5-51.1); MEAN CORPUSCULAR HEMOGLOBIN 30 pg (27-31); MEAN CORPUSCULAR HGB CONC 33 g/dL (33-37); MEAN CORPUSCULAR VOLUME 91.2 fL (80-94); MONOCYTES # (AUTO) 0.4 K/uL (0.8-1.0); MONOCYTES % (AUTO) 3.3 % (1.7-9.3); NEUTROPHILS # (AUTO) 11.8 K/uL (1.8-7.7); NEUTROPHILS % (AUTO) 92.8 % (42.2-75.2); PLATELET COUNT (AUTO) 478 K/uL (140-450); RED BLOOD CELL COUNT(AUTO) 5.05 MIL/uL (4.20-6.10); RED CELL DISTRIBUTION WIDTH 13.6 % (11.6-13.7); WHITE BLOOD COUNT (AUTO) 12.7 K/uL (4.8-10.8)
--- NOTE | 2020-09-07 07:30 | NUR ---
ENDORSED PT IN STABLE CONDITION TO AM NURSE.
[2020-09-07 07:42] LABS: ANION GAP 12.1 (8-16); CARBON DIOXIDE 30.8 mmol/L (21-32); CREATININE 0.9 mg/dL (0.6-1.3); POTASSIUM 4.9 mmol/L (3.5-5.1)
[2020-09-07 08:00] VITALS: BP 133/84
[2020-09-07] MEDS: ASCORBIC ACID 500 MG TAB PO SCH (08:26)
[2020-09-07] MEDS: ZINC SULF 220 MG CAP PO SCH (08:26)
[2020-09-07] MEDS: methylPREDNISolone SS 40 MG/ML VIAL IVP SCH ×2 (08:26→20:44)
[2020-09-07] MEDS: ENOXAPARIN 40 MG/0.4 ML SYR SUBQ SCH (08:43)
[2020-09-07 12:00] VITALS: BP 114/75
--- NOTE | 2020-09-07 14:00 | NUR ---
Attempted to titrate O2 down to 12Lpm via NRB. Pt's SaO2 decreased from 92% to 85%. Patient became agitated and tachypneic stating he couldn't breathe. Resumed O2 to 15Lpm via NRB, instructed to position himself prone to promote lung expansion and to take slow deep breaths. Patient able to follow instructions. SaO2 slowly improved to 91%. Pt calmed down, respirations even & nonlabored.
[2020-09-07 16:00] VITALS: BP 131/80
--- NOTE | 2020-09-07 19:05 | NUR ---
Report given to pm nurse Anjana. Pt lying prone in bed, awake and verbally responsive, respirations even & nonlabored with O2 @ 15Lpm via NRB mask in place.
--- NOTE | 2020-09-07 19:08 | NUR ---
RECEIVED PATIENT IN FROM AM SHIFT NURSE FOR CONTINUITY OF CARE. AAOX4. RESPIRATIONS TACHYPNEIC. CONTINUES ON O2 15L VIA NRB, O2SAT 90%. SKIN WARM, DRY. SALINE LOCK TO RIGHT HAND 20G PATENT/INTACT. NO C/O PAIN. ABDOMEN SOFT, NONTENDER. CONTINENT OF B/B. PLAN OF CARE DISCUSSED. CALL LIGHT WITHIN REACH. SAFETY PRECAUTIONS IN PLACE. ISOLATION PRECAUTIONS OBSERVED BY ALL STAFF.
[2020-09-07 20:00] VITALS: BP 127/89
--- NOTE | 2020-09-07 21:10 | NUR ---
DUE MEDS GIVEN. PATIENT IS ABLE TO MOVE HIMSELF INTO THE PRONE POSITION. NO C/O PAIN. CALL LIGHT WITHIN REACH. SAFETY PRECAUTIONS IN PLACE. ISOLATION PRECAUTIONS OBSERVED BY ALL STAFF.
--- NOTE | 2020-09-07 23:00 | NUR ---
PATIENT RESTING COMFORTABLY IN BED IN PRONE POSITION. NO S/S ACUTE DISTRESS. CALL LIGHT WITHIN REACH. SAFETY PRECAUTIONS IN PLACE. ISOLATION PRECAUTIONS OBSERVED BY ALL STAFF.
[2020-09-08] VITALS: BP 129/73
--- NOTE | 2020-09-08 01:00 | NUR ---
MADE ROUNDS. PATIENT IS ASLEEP. NO S/S ACUTE DISTRESS. CALL LIGHT WITHIN REACH. SAFETY PRECAUTIONS IN PLACE. ISOLATION PRECAUTIONS OBSERVED BY ALL STAFF.
--- NOTE | 2020-09-08 03:00 | NUR ---
PATIENT IS ASLEEP. NO S/S ACUTE DISTRESS. CALL LIGHT WITHIN REACH. SAFETY PRECAUTIONS IN PLACE. ISOLATION PRECAUTIONS OBSERVED BY ALL STAFF.
[2020-09-08 04:00] VITALS: BP 150/72
--- NOTE | 2020-09-08 04:24 | NUR ---
PT CHECKED. ON 100% NRB. ALERT AND ORIENTATED. NO INCREASED WOB NOTED. VITAL SIGN STABLE. WILL CONT TO MONITOR
--- NOTE | 2020-09-08 05:00 | NUR ---
PATIENT WITH EPISODES OF SOB. O2 SAT DROPPED TO 74%. PATIENT REPOSITIONED. RT AT BEDSIDE. O2SAT NOW AT 90%. FREQUENT ROUNDS MADE BY ALL STAFF.
--- NOTE | 2020-09-08 07:20 | NUR ---
ENDORSED TO AM SHIFT NURSE FOR CONTINUITY OF CARE.
--- NOTE | 2020-09-08 07:25 | NUR ---
RECEIVED REPORT FROM NIGHT NURSE FOR CONTINUITY OF CARE. PT IS STABLE, PT ASLEEP. PT IS ON 15L NON-REBREATHER. PT HAS RH 24G SALINE LOCK, SKIN INTACT. CALL LIGHT WITHIN REACH, WILL CONTINUE TO MONITOR.
[2020-09-08 08:00] VITALS: BP 101/76
[2020-09-08 09:28] LABS: ANION GAP 9.6 (8-16); CARBON DIOXIDE 32.6 mmol/L (21-32); CREATININE 0.9 mg/dL (0.6-1.3); POTASSIUM 5.2 mmol/L (3.5-5.1)
[2020-09-08] MEDS: ZINC SULF 220 MG CAP PO SCH (09:38)
[2020-09-08] MEDS: ASCORBIC ACID 500 MG TAB PO SCH (09:39)
[2020-09-08] MEDS: ENOXAPARIN 40 MG/0.4 ML SYR SUBQ SCH (09:40)
[2020-09-08] MEDS: methylPREDNISolone SS 40 MG/ML VIAL IVP SCH ×2 (09:42→20:27)
--- NOTE | 2020-09-08 09:47 | NUR ---
ADMINISTERED SCHEDULED MEDICATION, MEDICATION EDUCATION PROVIDED, PT VERBALIZED UNDERSTANDING. PT TOLERATED WELL. PT IS STABLE, WILL CONTINUE TO MONITOR.
[2020-09-08 09:56] LABS: BASOPHILS % (AUTO) 0.2 % (0.0-2.0); EOSINOPHILS % (AUTO) 0.1 % (0.0-4.0); HEMATOCRIT 45.2 % (36-52); HEMOGLOBIN 15.2 g/dL (12.0-18.0); LYMPHOCYTES # (AUTO) 0.6 K/uL (2.0-11.5); LYMPHOCYTES % (AUTO) 4.1 % (20.5-51.1); MEAN CORPUSCULAR HEMOGLOBIN 31 pg (27-31); MEAN CORPUSCULAR HGB CONC 34 g/dL (33-37); MEAN CORPUSCULAR VOLUME 91.3 fL (80-94); MONOCYTES # (AUTO) 0.5 K/uL (0.8-1.0); MONOCYTES % (AUTO) 3.3 % (1.7-9.3); NEUTROPHILS % (AUTO) 92.3 % (42.2-75.2); PLATELET COUNT (AUTO) 506 K/uL (140-450); RED BLOOD CELL COUNT(AUTO) 4.95 MIL/uL (4.20-6.10); RED CELL DISTRIBUTION WIDTH 13.7 % (11.6-13.7); WHITE BLOOD COUNT (AUTO) 15.2 K/uL (4.8-10.8)
--- NOTE | 2020-09-08 10:54 | NUR ---
UPDATED PT , REBECCA, ON PT'S CONDITION, PT IS STABLE, WILL CONTINUE TO MONITOR.
[2020-09-08 12:00] VITALS: BP 135/76
[2020-09-08] MEDS ORDERED: SODIUM ZIRCONIUM CYCLOSILICATE 10 GM POWD.PACK PO SCH (13:00)
[2020-09-08] MEDS: PIPERACILLIN/TAZOBACTAM 3.375 GM in DEXTROSE 5% 50 ML IV SCH ×2 (13:45→20:27)
--- NOTE | 2020-09-08 13:58 | NUR ---
ADMINISTERED SCHEDULED MEDICATION, MEDICATION EDUCATION PROVIDED, PT TOLERATED WELL. PT IS STABLE, WILL CONTINUE TO MONITOR.
[2020-09-08 16:00] VITALS: BP 117/89
--- NOTE | 2020-09-08 16:21 | NUR ---
UPDATED PT'S DAUGHTER, PAUL, ON PT'S CONDITION. PT IS STABLE, WILL CONTINUE TO MONITOR
--- NOTE | 2020-09-08 16:57 | NUR ---
NOTIFIED RT KATHE PT'S O2 SAT IS 88 AND REQUESTING ASSESS PT. PER RT THAT SAT ARE OKAY PER TEQUILA PT. WILL CONTINUE TO MONITOR PT.
--- NOTE | 2020-09-08 19:10 | NUR ---
ENDORSE PT TO NIGHT NURSE FOR CONTINUITY OF CARE, PT IS STABLE
--- NOTE | 2020-09-08 19:15 | NUR ---
RECEIVED PATIENT FROM AM SHIFT NURSE FOR CONTINUITY OF CARE. RESPIRATIONS EVEN, UNLABORED. CONTINUES ON O2 15L VIA NRB, O2SAT 92%. SKIN WARM, DRY. SALINE LOCK TO RIGHT HAND 20G PATENT/INTACT. NO C/O PAIN. NO S/S ACUTE DISTRESS. ABDOMEN SOFT, NONTENDER. BOWEL SOUNDS ACTIVE X4 QUADRANTS. CONTINENT OF B/B. PLAN OF CARE DISCUSSED. CALL LIGHT WITHIN REACH. SAFETY PRECAUTIONS IN PLACE. ISOLATION PRECAUTIONS OBSERVED BY ALL STAFF.
[2020-09-08 20:00] VITALS: BP 93/71
--- NOTE | 2020-09-08 21:15 | NUR ---
DUE MEDS GIVEN. PATIENT RESTING COMFORTABLY IN BED. NO S/S ACUTE DISTRESS. CONTINUES ON O2 15L VIA NRB, O2SAT 92%. CALL LIGHT WITHIN REACH. SAFETY PRECAUTIONS IN PLACE. ISOLATION PRECAUTIONS OBSERVED BY ALL STAFF.
--- NOTE | 2020-09-08 23:30 | NUR ---
PATIENT IN PRONE POSITION. SLEEPING WELL. NO S/S ACUTE DISTRESS. O2SAT 92%. CALL LIGHT WITHIN REACH. SAFETY PRECAUTIONS IN PLACE. ISOLATION PRECAUTIONS OBSERVED BY ALL STAFF.
[2020-09-09] VITALS: BP 122/74
--- NOTE | 2020-09-09 01:46 | NUR ---
MADE ROUNDS. PATIENT IS ASLEEP. PRONE POSITION. NO S/S ACUTE DISTRESS. CONTINUES ON O2 15L VIA NRB, O2SAT 92%. CALL LIGHT WITHIN REACH. SAFETY PRECAUTIONS IN PLACE. ISOLATION PRECAUTIONS OBSERVED BY ALL STAFF.
--- NOTE | 2020-09-09 03:27 | NUR ---
PATIENT IS RESTING COMFORTABLY IN BED. NO C/O PAIN. NO S/S ACUTE DISTRESS. CALL LIGHT WITHIN REACH. SAFETY PRECAUTIONS IN PLACE. ISOLATION PRECAUTIONS OBSERVED BY ALL STAFF.
[2020-09-09 04:00] VITALS: BP 119/62
[2020-09-09] MEDS: PIPERACILLIN/TAZOBACTAM 3.375 GM in DEXTROSE 5% 50 ML IV SCH ×3 (04:16→21:03)
--- NOTE | 2020-09-09 05:45 | NUR ---
DUE MEDS GIVEN ORDERED. PATIENT RESTING COMFORTABLY IN BED. NO S/S ACUTE DISTRESS. O2SAT 94%. CALL LIGHT WITHIN REACH. ISOLATION PRECAUTIONS OBSERVED BY ALL STAFF.
--- NOTE | 2020-09-09 07:10 | NUR ---
ENDORSED PATIENT TO AM SHIFT FOR CONTINUITY OF CARE.
--- NOTE | 2020-09-09 07:12 | NUR ---
RECEIVED REPORT FROM NIGHT NURSE FOR CONTINUITY OF CARE, PT IS STABLE, PT ASLEEP. PT HAS RH24G SALINE LOCK, SKIN INTACT. PT ON 15L NON-REBREATHER MASK. SAFETY MEASURES IN PLACE, WILL CONTINUE TO MONITOR.
[2020-09-09 08:00] VITALS: BP 125/78
[2020-09-09] MEDS: ZINC SULF 220 MG CAP PO SCH (08:14)
[2020-09-09] MEDS: ASCORBIC ACID 500 MG TAB PO SCH (08:14)
[2020-09-09] MEDS: ENOXAPARIN 40 MG/0.4 ML SYR SUBQ SCH (08:30)
[2020-09-09] MEDS: methylPREDNISolone SS 40 MG/ML VIAL IVP SCH ×2 (08:51→21:03)
--- NOTE | 2020-09-09 08:55 | NUR ---
ADMINISTERED SCHEDULED MEDICATION, MEDICATION EDUCATION PROVIDED. PT TOLERATED WELL. PT IS STABLE, WILL CONTINUE TO MONITOR.
[2020-09-09 12:00] VITALS: BP 115/80
[2020-09-09 13:22] LABS: EOSINOPHILS % (AUTO) 0.1 % (0.0-4.0); HEMATOCRIT 46.7 % (36-52); HEMOGLOBIN 15.4 g/dL (12.0-18.0); LYMPHOCYTES # (AUTO) 0.3 K/uL (2.0-11.5); LYMPHOCYTES % (AUTO) 1.8 % (20.5-51.1); MEAN CORPUSCULAR HEMOGLOBIN 30 pg (27-31); MEAN CORPUSCULAR HGB CONC 33 g/dL (33-37); MEAN CORPUSCULAR VOLUME 91.9 fL (80-94); MONOCYTES # (AUTO) 0.7 K/uL (0.8-1.0); MONOCYTES % (AUTO) 3.5 % (1.7-9.3); NEUTROPHILS # (AUTO) 17.6 K/uL (1.8-7.7); NEUTROPHILS % (AUTO) 94.6 % (42.2-75.2); PLATELET COUNT (AUTO) 443 K/uL (140-450); RED BLOOD CELL COUNT(AUTO) 5.08 MIL/uL (4.20-6.10); RED CELL DISTRIBUTION WIDTH 13.6 % (11.6-13.7); WHITE BLOOD COUNT (AUTO) 18.6 K/uL (4.8-10.8)
[2020-09-09 13:34] LABS: ANION GAP 8.6 (8-16); CARBON DIOXIDE 33.2 mmol/L (21-32); POTASSIUM 5.8 mmol/L (3.5-5.1)
--- NOTE | 2020-09-09 14:17 | NUR ---
ADMINISTERED SCHEDULED MEDICATION, MEDICATION EDUCATION PROVIDED. PT TOLERATING WELL. PT IS STABLE, WILL CONTINUE TO MONITOR.
[2020-09-09 16:00] VITALS: BP 121/79
--- NOTE | 2020-09-09 16:34 | NUR ---
NOTIFIED DR BACH PT'S POTASSIUM 5.8 AND RECE[facility]ED [facility] [place] [employer] [facility] [facility]. WILL INPUT ORDER AND CARRY IT OUT.
[2020-09-09] MEDS ORDERED: SODIUM ZIRCONIUM CYCLOSILICATE 10 GM POWD.PACK PO SCH (16:38)
--- NOTE | 2020-09-09 17:30 | NUR ---
ADMINISTERED SCHEDULED MEDICATION, MEDICATION EDUCATION PROVIDED. PT TOLERATED WELL, PT IS STABLE, WILL CONTINUE TO MONITOR.
--- NOTE | 2020-09-09 19:20 | NUR ---
RECEIVED PATIENT FROM AM SHIFT NURSE FOR CONTINUITY OF CARE. RESPIRATIONS EVEN, UNLABORED. CONTINUES ON O2 15L VIA NC. O2SAT 94%. SKIN WARM, DRY. SALINE LOCK TO RIGHT FOREARM 20G PATENT/INTACT. NO C/O PAIN. NO S/S ACUTE DISTRESS. ABDOMEN SOFT, NONTENDER, NONDISTENDED. BOWEL SOUNDS ACTIVE X4 QUADRANTS. PATIENT CONTINENT OF B/B. PLAN OF CARE DISCUSSED. CALL LIGHT WITHIN REACH. SAFETY PRECAUTIONS IN PLACE. ISOLATION PRECAUTIONS OBSERVED BY ALL STAFF.
[2020-09-09 20:00] VITALS: BP 126/86
--- NOTE | 2020-09-09 21:45 | NUR ---
DUE MEDS GIVEN. NO C/O PAIN. NO S/S ACUTE DISTRESS. CALL LIGHT WITHIN REACH.
--- NOTE | 2020-09-09 23:00 | NUR ---
PATIENT IN PRONE POSITION RESTING COMFORTABLY IN BED. FREQUENT ROUNDS BY ALL STAFF. CALL LIGHT WITHIN REACH.
[2020-09-10] VITALS: BP 114/76
--- NOTE | 2020-09-10 01:48 | NUR ---
PATIENT ASLEEP. NO S/S ACUTE DISTRESS. CALL LIGHT WITHIN REACH. SAFETY PRECAUTIONS IN PLACE. ISOLATION PRECAUTIONS OBSERVED BY ALL STAFF.
--- NOTE | 2020-09-10 03:34 | NUR ---
MADE ROUNDS. PATIENT IS ASLEEP. NO S/S ACUTE DISTRESS. CALL LIGHT WITHIN REACH.
[2020-09-10 04:00] VITALS: BP 90/58
[2020-09-10] MEDS: PIPERACILLIN/TAZOBACTAM 3.375 GM in DEXTROSE 5% 50 ML IV SCH ×3 (04:38→21:38)
--- NOTE | 2020-09-10 05:00 | NUR ---
PATIENT AWAKE. NO S/S ACUTE DISTRESS. NO C/O PAIN. CALL LIGHT WITHIN REACH. ISOLATION PRECAUTIONS OBSERVED BY ALL STAFF.
[2020-09-10 06:55] LABS: BASOPHILS % (AUTO) 0.1 % (0.0-2.0); EOSINOPHILS % (AUTO) 0.2 % (0.0-4.0); HEMATOCRIT 44.7 % (36-52); HEMOGLOBIN 15.1 g/dL (12.0-18.0); LYMPHOCYTES # (AUTO) 0.6 K/uL (2.0-11.5); LYMPHOCYTES % (AUTO) 3.7 % (20.5-51.1); MEAN CORPUSCULAR HEMOGLOBIN 31 pg (27-31); MEAN CORPUSCULAR HGB CONC 34 g/dL (33-37); MEAN CORPUSCULAR VOLUME 91.4 fL (80-94); MONOCYTES # (AUTO) 0.6 K/uL (0.8-1.0); MONOCYTES % (AUTO) 3.6 % (1.7-9.3); NEUTROPHILS # (AUTO) 15.4 K/uL (1.8-7.7); NEUTROPHILS % (AUTO) 92.4 % (42.2-75.2); PLATELET COUNT (AUTO) 410 K/uL (140-450); RED CELL DISTRIBUTION WIDTH 14.1 % (11.6-13.7); WHITE BLOOD COUNT (AUTO) 16.7 K/uL (4.8-10.8)
[2020-09-10] MEDS: ASCORBIC ACID 500 MG TAB PO SCH (09:11)
[2020-09-10] MEDS: ZINC SULF 220 MG CAP PO SCH (09:12)
[2020-09-10] MEDS: methylPREDNISolone SS 40 MG/ML VIAL IVP SCH ×2 (09:13→21:39)
[2020-09-10] MEDS: ENOXAPARIN 40 MG/0.4 ML SYR SUBQ SCH (09:15)
--- NOTE | 2020-09-10 09:29 | NUR ---
ADMINISTERED MEDS PER MD ORDER. PATIENT TOLERATED WELL. MEDICATION EDUCATION PROVIDED. PATIENT VERBALIZED UNDERSTANDING. SAFETY MEASURES IN PLACE. WILL CONT TO MONITOR.
[2020-09-10 09:30] LABS: ANION GAP 15.2 (8-16); CARBON DIOXIDE 30.4 mmol/L (21-32); POTASSIUM 4.6 mmol/L (3.5-5.1)
[2020-09-10 09:31] LABS: ALBUMIN 2.6 g/dL (3.4-5.0); MAGNESIUM 2.6 mg/dL (1.8-2.4); PHOSPHORUS 4.8 mg/dL (2.5-4.9); TOTAL BILIRUBIN 0.7 mg/dL (0.0-1.0)
[2020-09-10 12:00] VITALS: BP 120/75
--- NOTE | 2020-09-10 12:42 | NUR ---
HOURLY ROUNDING PERFORMED. PATIENT 02 SAT 82%. ASSISTED PATIENT TO PRONE POSITION, ENOUCRAGED SLOW DEEP BREATHS. PATIENT 02 AT 89%. WILL CONTACT RT FOR FURTHER ASSESSMENT.
--- NOTE | 2020-09-10 12:49 | NUR ---
CALLED RT, ADVSD TO KEEP PATIENT IN PRONE POSITION MUCH POSSIBLE. WILL COME TO ASSESS PATIENT TO POSS GIVE NC ALONG W/ NONREBREATHER. PATIENT DENIES CHEST PAIN/SOB. WILL CONT TO MONITOR.
--- NOTE | 2020-09-10 14:04 | NUR ---
ADMINISTERED PRESCRIBED MEDS PER MD ORDER. PATIENT IS LYING PRONE 02 SAT 95%. DENIES PAIN/SOB. MEDICATION EDUCATION PROVIDED. PATIENT VERBALIZED UNDERSTANDING. SAFETY MEASURES IN PLACE. WILL CONT TO MONITOR.
[2020-09-10 16:00] VITALS: BP 113/75
--- NOTE | 2020-09-10 16:43 | NUR ---
HOURLY ROUNDING PERFORMED. PATIENT IS RESTING. O2 SAT 89%, PATIENT IS LYING PRONE. PATIENT DENIES PAIN/SOB. SAFETY MEASURES IN PLACE. WILL CONT TO MONITOR.
--- NOTE | 2020-09-10 17:03 | NUR ---
09/10/20 RD FOLLOW UP COMPLETED PLEASE REFER TO NUTRITION ASSESSMENT UNDER CARE ACTIVITY FOR ESTIMATED NUTRITIONAL NEEDS. 1. CONTINUE MECHANICAL SOFT DIET WITH ENSURE TID 2. ENCOURAGED PT INCREASE PO INTAKE AND PROTEIN INTAKE 3. RD TO FOLLOW-UP 3-5 DAYS, MODERATE RISK ROSARIO ROSARIO, RD
--- NOTE | 2020-09-10 19:15 | NUR ---
RECEIVED PATIENT FROM AM SHIFT NURSE FOR CONTINUITY OF CARE. RESPIRATIONS EVEN, UNLABORED. CONTINUES ON O2 15L VIA NRB, O2SAT 95%. SKIN WARM, DRY. IV SITE NOTED TO RIGHT FOREARM 20G PATENT/INTACT. NO C/O PAIN. NO S/S ACUTE DISTRESS. ABDOMEN SOFT, NONTENDER. BOWEL SOUNDS ACTIVE X4 QUADRANTS. PATIENT IS CONTINENT OF B/B. PLAN OF CARE DISCUSSED. CALL LIGHT WITHIN REACH. SAFETY PRECAUTIONS IN PLACE. ISOLATION PRECAUTIONS OBSERVED BY ALL STAFF.
[2020-09-10 20:00] VITALS: BP 127/81
--- NOTE | 2020-09-10 21:50 | NUR ---
DUE MEDS GIVEN. NO C/O PAIN. NO S/S ACUTE DISTRESS. CALL LIGHT WITHIN REACH. SAFETY PRECAUTIONS IN PLACE. ISOLATION PRECAUTIONS OBSERVED BY ALL STAFF.
--- NOTE | 2020-09-10 23:00 | NUR ---
PATIENT IN PRONE POSITION, CONTINUES ON O2 15L VIA NRB. O2SAT 95%. NO S/S ACUTE DISTRESS. CALL LIGHT WITHIN REACH. SAFETY PRECAUTIONS IN PLACE. ISOLATION PRECAUTIONS OBSERVED BY ALL STAFF.
--- NOTE | 2020-09-11 01:00 | NUR ---
MADE ROUNDS. PATIENT IS ASLEEP. NO S/S ACUTE DISTRESS. CALL LIGHT WITHIN REACH. SAFETY PRECAUTIONS IN PLACE. ISOLATION PRECAUTIONS OBSERVED BY ALL STAFF.
--- NOTE | 2020-09-11 03:48 | NUR ---
PATIENT IS ASLEEP. NO S/S ACUTE DISTRESS. CALL LIGHT WITHIN REACH. SAFETY PRECAUTIONS IN PLACE. ISOLATION PRECAUTIONS OBSERVED BY ALL STAFF.
[2020-09-11 04:00] VITALS: BP 112/71
[2020-09-11] MEDS: PIPERACILLIN/TAZOBACTAM 3.375 GM in DEXTROSE 5% 50 ML IV SCH ×3 (04:13→21:31)
[2020-09-11 06:27] LABS: EOSINOPHILS % (AUTO) 0.2 % (0.0-4.0); LYMPHOCYTES # (AUTO) 0.5 K/uL (2.0-11.5); MONOCYTES # (AUTO) 0.3 K/uL (0.8-1.0)
[2020-09-11 07:09] LABS: BASOPHILS % (AUTO) 0.1 % (0.0-2.0); HEMATOCRIT 44.6 % (36-52); LYMPHOCYTES % (AUTO) 4.1 % (20.5-51.1); MEAN CORPUSCULAR HEMOGLOBIN 31 pg (27-31); MEAN CORPUSCULAR HGB CONC 34 g/dL (33-37); MEAN CORPUSCULAR VOLUME 90.9 fL (80-94); MONOCYTES % (AUTO) 2.3 % (1.7-9.3); NEUTROPHILS # (AUTO) 11.5 K/uL (1.8-7.7); NEUTROPHILS % (AUTO) 93.3 % (42.2-75.2); PLATELET COUNT (AUTO) 384 K/uL (140-450); RED CELL DISTRIBUTION WIDTH 13.7 % (11.6-13.7); WHITE BLOOD COUNT (AUTO) 12.3 K/uL (4.8-10.8)
--- NOTE | 2020-09-11 07:30 | NUR ---
RECEIVED PT ASLEEP. NO SOB NOTED. NO SIGNS OF PAIN AT THIS TIME. BED ON LOW POSITION, WITH 3 SIDE RAILS RAISED UP, CALL LIGHT WITHIN REACH. WILL CONTINUE TO MONITOR PT.
[2020-09-11 08:00] VITALS: BP 109/65
[2020-09-11] MEDS: ASCORBIC ACID 500 MG TAB PO SCH (09:16)
[2020-09-11] MEDS: ZINC SULF 220 MG CAP PO SCH (09:16)
[2020-09-11] MEDS: methylPREDNISolone SS 40 MG/ML VIAL IVP SCH ×3 (09:16→21:31)
[2020-09-11] MEDS: ENOXAPARIN 40 MG/0.4 ML SYR SUBQ SCH (09:17)
[2020-09-11 09:18] LABS: ALBUMIN 2.7 g/dL (3.4-5.0); ANION GAP 12.4 (8-16); CARBON DIOXIDE 31.9 mmol/L (21-32); CREATININE 1.1 mg/dL (0.6-1.3); MAGNESIUM 2.9 mg/dL (1.8-2.4); PHOSPHORUS 5.5 mg/dL (2.5-4.9); TOTAL BILIRUBIN 0.7 mg/dL (0.0-1.0)
--- NOTE | 2020-09-11 10:00 | NUR ---
ENCOURAGED PT TO USE INCENTIVE SPIROMETER, VERBALIZED UNDERSTANDING.
[2020-09-11 10:39] LABS: POTASSIUM 6.3 mmol/L (3.5-5.1)
[2020-09-11 12:00] VITALS: BP 95/54
[2020-09-11] MEDS ORDERED: SODIUM ZIRCONIUM CYCLOSILICATE 10 GM POWD.PACK PO SCH (12:00)
--- NOTE | 2020-09-11 15:15 | NUR ---
PT ABLE TO PRONE SELF TOLERATED.
[2020-09-11 16:00] VITALS: BP 117/65
--- NOTE | 2020-09-11 19:15 | NUR ---
PT AWAKE, STILL HAVING DINNER. NO SOB NOTED, STILL ON NRB MASK WITH SATS AT 92%. NO C/O PAIN AT THIS TIME. WILL ENDORSE TO NEXT SHIFT NURSE FOR CONTINUITY OF CARE.
--- NOTE | 2020-09-11 19:30 | NUR ---
RECEIVED PATIENT FROM AM SHIFT NURSE FOR CONTINUITY OF CARE. RESPIRATIONS EVEN, LABORED UPON EXERTION. CONTINUES ON O2 15L VIA NRB, O2SAT 94%. SKIN WARM, DRY. IV SITE TO RIGHT FOREARM 22G PATENT/INTACT. NO C/O PAIN. NO S/S ACUTE DISTRESS. ABDOMEN SOFT, NONTENDER. BOWEL SOUNDS ACTIVE X4 QUADRANTS. PATIENT IS CONTINENT OF B/B. PLAN OF CARE DISCUSSED. CALL LIGHT WITHIN REACH. ISOLATION PRECAUTIONS OBSERVED BY ALL STAFF.
[2020-09-11 20:00] VITALS: BP 121/73
--- NOTE | 2020-09-11 21:45 | NUR ---
SPOKE TO DAUGHTER PAUL AND GAVE HER UPDATE ON PATIENT'S CONDITION. DUE MEDS GIVEN. PATIENT IS RESTING COMFORTABLY IN BED. CALL LIGHT WITHIN REACH. ISOLATION PRECAUTIONS OBSERVED BY ALL STAFF.
--- NOTE | 2020-09-11 23:15 | NUR ---
PATIENT RESTING COMFORTABLY IN BED. NO S/S ACUTE DISTRESS. NO C/O PAIN. CALL LIGHT WITHIN REACH. ISOLATION PRECAUTIONS OBSERVED BY STAFF.
--- NOTE | 2020-09-12 01:00 | NUR ---
PATIENT IS ASLEEP. NO S/S ACUTE DISTRESS. CALL LIGHT WITHIN REACH. ISOLATION PRECAUTIONS OBSERVED BY ALL STAFF.
--- NOTE | 2020-09-12 03:02 | NUR ---
MADE ROUNDS. PATIENT IS ASLEEP. NO S/S ACUTE DISTRESS. CALL LIGHT WITHIN REACH. ISOLATION PRECAUTIONS OBSERVED BY ALL STAFF.
[2020-09-12] MEDS: PIPERACILLIN/TAZOBACTAM 3.375 GM in DEXTROSE 5% 50 ML IV SCH ×3 (04:17→21:01)
--- NOTE | 2020-09-12 05:31 | NUR ---
PATIENT IS RESTING COMFORTABLY IN BED. NO S/S ACUTE DISTRESS. CALL LIGHT WITHIN REACH. ISOLATION PRECAUTIONS OBSERVED BY ALL STAFF.
[2020-09-12 07:06] LABS: BASOPHILS % (AUTO) 0.1 % (0.0-2.0); EOSINOPHILS % (AUTO) 0.3 % (0.0-4.0); HEMATOCRIT 43.2 % (36-52); HEMOGLOBIN 14.4 g/dL (12.0-18.0); LYMPHOCYTES # (AUTO) 0.6 K/uL (2.0-11.5); LYMPHOCYTES % (AUTO) 3.6 % (20.5-51.1); MEAN CORPUSCULAR HEMOGLOBIN 30 pg (27-31); MEAN CORPUSCULAR HGB CONC 33 g/dL (33-37); MEAN CORPUSCULAR VOLUME 91.4 fL (80-94); MONOCYTES # (AUTO) 0.5 K/uL (0.8-1.0); MONOCYTES % (AUTO) 3.5 % (1.7-9.3); NEUTROPHILS % (AUTO) 92.5 % (42.2-75.2); PLATELET COUNT (AUTO) 346 K/uL (140-450); RED BLOOD CELL COUNT(AUTO) 4.72 MIL/uL (4.20-6.10); RED CELL DISTRIBUTION WIDTH 14.3 % (11.6-13.7); WHITE BLOOD COUNT (AUTO) 15.1 K/uL (4.8-10.8)
--- NOTE | 2020-09-12 07:30 | NUR ---
RECEIVED PT ASLEEP, MODERATE HIGH BACK REST, NO SOB NOTED. NO SIGNS OF PAIN AT THIS TIME. BED ON LOW POSITION, WITH 3 SIDE RAILS RAISED UP, CALL LIGHT WITHIN REACH. WILL CONTINUE TO MONITOR PT.
[2020-09-12 07:45] LABS: ALBUMIN 2.7 g/dL (3.4-5.0); ANION GAP 10.5 (8-16); CARBON DIOXIDE 32.2 mmol/L (21-32); CREATININE 0.9 mg/dL (0.6-1.3); MAGNESIUM 2.6 mg/dL (1.8-2.4); PHOSPHORUS 4.5 mg/dL (2.5-4.9); POTASSIUM 5.7 mmol/L (3.5-5.1); TOTAL BILIRUBIN 0.7 mg/dL (0.0-1.0)
[2020-09-12 08:00] VITALS: BP 121/73
--- NOTE | 2020-09-12 10:15 | NUR ---
PT RESTING WELL, NO SOB NOTED. OXYGEN SATS AT 94% ON NRB. WILL CONTINUE TO MONITOR PT.
[2020-09-12] MEDS: ENOXAPARIN 40 MG/0.4 ML SYR SUBQ SCH (10:18)
[2020-09-12] MEDS: methylPREDNISolone SS 40 MG/ML VIAL IVP SCH ×2 (10:18→21:02)
[2020-09-12] MEDS: ZINC SULF 220 MG CAP PO SCH (10:19)
[2020-09-12] MEDS: ASCORBIC ACID 500 MG TAB PO SCH (10:19)
[2020-09-12] MEDS ORDERED: SODIUM ZIRCONIUM CYCLOSILICATE 10 GM POWD.PACK PO SCH (11:30)
[2020-09-12 13:00] VITALS: BP 126/77
[2020-09-12] MEDS: LORazepam 2 MG/ML VIAL IVP PRN (13:20)
--- NOTE | 2020-09-12 14:26 | NUR ---
@1300 HRS: PT CALLED, STATED THAT HE CANNOT BREATH. WENT TO THE BEDSIDE, PT ON SITTING POSITION, ALERT AND AWAKE BUT TACHYPNEIC WITH RESPIRATIONS OF 26-28/MIN, O2 SATS ON 15 LITERS NRB WAS AT 66%. REPOSITIONED PT TO PRONE, BACK TAPPING DONE. RT AT BEDSIDE. PT SEEMED TO BE SO ANXIOUS OF BREATHING SO HARD. DR. VANG NOTIFIED. @1320: ATIVAN IVP GIVEN PRN FOR ANXIETY. O2 SATS WENT UP BETWEEN 80%- 85%, PT STILL ALERT AND COHERENT, STATING BACK TAPPING FEELS GOOD. @ 1400: PT CONTINUES TO DROPPED HIS O2 SATURATION TO 70'S, RT DIRECTOR AT THE BEDSIDE. 15 LITERS OXYMIZER APPLIED WITH 15 LITERS NRB, SATS STAYED BETWEEN 80-87%. PT, PT'S AND DAUGHTER MADE AWARE OF POSSIBLE INTUBATION. WILL CONTINUE TO MONITOR PT.
[2020-09-12 17:17] VITALS: BP 130/84
--- NOTE | 2020-09-12 18:00 | NUR ---
PT'S OXYGEN SATURATION DROPPED TO 34%. PT ALERT, BUT HARD OF BREATHING AND STATED THAT HE IS TIRED. RAPID RESPONSE ACTIVATED. HOOKED PT ON TELEMONITOR. RAPID RESPONSE TEAM ARRIVED.
--- NOTE | 2020-09-12 18:05 | NUR ---
DR. VANG NOTIFIED OF POSSIBLE INTUBATION WELL PT'S AND DAUGHTER.
--- NOTE | 2020-09-12 19:00 | NUR ---
INTUBATION HELD FOR NOW ACCORDING TO RR TEAM. PT'S ABG IS BETTER, WITH OXYGEN SATURATION OF 94%. PT AWAKE, NO SOB NOTED, ON HIGH FLOW OXYGEN, TOLERATED WELL. WILL ENDORSE TO NEXT SHIFT NURSE FOR CONTINUITY OF CARE.
[2020-09-12 20:00] VITALS: BP 119/79
--- NOTE | 2020-09-12 20:00 | NUR ---
RECEIVED BEDSIDE REPORT REGARDING THE PT FROM DAY RN FOR CONTINUITY OF CARE. RECEIVED PT AWAKE AND ALERT. FAMILY PEEKING AT THE WINDOW. PT ALMOST GOT INTUBATED EARLIER PER DAY RN. PT DESATS TO 60'S EARLIER AND PT IS ON 15L NRB AND HIGH FLOW O2 SATING 97%. PER PT HE FEELS MUCH BETTER NOW THAN EARLIER. NO SIGN AND SYMPTOMS OF DISTRESS AT THIS TIME. INSTRUCTED TO CALL FOR ASSISTANCE AT ALL TIMES AND TEACH THE PT HOW TO USE IT. PT VERBALIZED UNDERSTANDING. CALL LIGHT WITHIN REACH.WILL CONTINUE POC AND MONITORING.
--- NOTE | 2020-09-12 22:00 | NUR ---
ADMINISTERED ALL THE SCHEDULED MEDICATIONS AND PT TOLERATED IT WELL. NO ADVERSE DRUG REACTION NOTED. CALL LIGHT WITHIN REACH.
[2020-09-13] VITALS: BP 133/79
--- NOTE | 2020-09-13 | NUR ---
PT FAMILY CALLED AND WANTED AN UPDATE ABOUT THE PT. UPDATED THE FAMILY WITH THE PT CONDITION. FAMILY REQUESTED TO OPEN THE PT WINDOW AROUND 6:30 AM.
--- NOTE | 2020-09-13 02:00 | NUR ---
MADE ROUNDS. PATIENT IS ASLEEP. SUPINE POSITION. NO S/S ACUTE DISTRESS. CONTINUES ON O2 15L VIA NRB AND HIGH FLOW O2, O2SAT 97%. CALL LIGHT WITHIN REACH. SAFETY PRECAUTIONS IN PLACE. ISOLATION PRECAUTIONS IMPLEMENTED..
[2020-09-13 04:00] VITALS: BP 112/75
[2020-09-13 06:56] LABS: BASOPHILS % (AUTO) 0.1 % (0.0-2.0); EOSINOPHILS # (AUTO) 0.1 K/uL (0-0.4); EOSINOPHILS % (AUTO) 0.4 % (0.0-4.0); HEMOGLOBIN 13.8 g/dL (12.0-18.0); LYMPHOCYTES # (AUTO) 0.9 K/uL (2.0-11.5); LYMPHOCYTES % (AUTO) 6.3 % (20.5-51.1); MEAN CORPUSCULAR HEMOGLOBIN 30 pg (27-31); MEAN CORPUSCULAR HGB CONC 34 g/dL (33-37); MEAN CORPUSCULAR VOLUME 90.5 fL (80-94); MONOCYTES # (AUTO) 0.7 K/uL (0.8-1.0); MONOCYTES % (AUTO) 5.3 % (1.7-9.3); NEUTROPHILS # (AUTO) 12.3 K/uL (1.8-7.7); NEUTROPHILS % (AUTO) 87.9 % (42.2-75.2); PLATELET COUNT (AUTO) 319 K/uL (140-450); RED BLOOD CELL COUNT(AUTO) 4.53 MIL/uL (4.20-6.10); RED CELL DISTRIBUTION WIDTH 13.8 % (11.6-13.7)
--- NOTE | 2020-09-13 07:07 | NUR ---
PATIENT STABLE. NO SIGN AND SYMPTOMS OF DISTRESS NOTED AT THIS TIME.ALL NEEDS ATTENDED.WILL ENDORSE THE PT TO THE ONCOMING RN FOR CONTINUITY OF CARE.CALL LIGHT WITHIN REACH.
[2020-09-13 07:29] LABS: ALBUMIN 2.7 g/dL (3.4-5.0); ANION GAP 10.2 (8-16); CARBON DIOXIDE 30.1 mmol/L (21-32); CREATININE 0.8 mg/dL (0.6-1.3); MAGNESIUM 2.5 mg/dL (1.8-2.4); PHOSPHORUS 3.9 mg/dL (2.5-4.9); POTASSIUM 4.3 mmol/L (3.5-5.1); TOTAL BILIRUBIN 0.5 mg/dL (0.0-1.0)
--- NOTE | 2020-09-13 08:30 | NUR ---
NURSE REPORT AND ASSESSMENT Report obtained from night nurse RAFAEL and this nurse assume care of patient until 1930. VSS. Afeb. Tele monitor with SR 94. O2 sat 83% per SENIOR FORMULATION SCIENTIST. Rechecked and encourgaed to take slow breath and increased to 94%.
[2020-09-13] MEDS: methylPREDNISolone SS 40 MG/ML VIAL IVP SCH ×2 (09:55→20:14)
[2020-09-13] MEDS: ASCORBIC ACID 500 MG TAB PO SCH (09:56)
[2020-09-13] MEDS: ZINC SULF 220 MG CAP PO SCH (09:56)
[2020-09-13] MEDS: ENOXAPARIN 40 MG/0.4 ML SYR SUBQ SCH (09:57)
[2020-09-13 16:00] VITALS: BP 120/90
--- NOTE | 2020-09-13 19:15 | NUR ---
NURSE REPORT Report given to night nurse MJ to assume care of patient. Stable with O2 15 l/min NRM and Hi O2 100% given. O2 sat at 1600- 96%Tele - SR 94.
[2020-09-13 20:00] VITALS: BP 130/89
--- NOTE | 2020-09-13 20:00 | NUR ---
RECEIVED BEDSIDE REPORT REGARDING THE PT FROM DAY RN FOR CONTINUITY OF CARE. RECEIVED PT AWAKE AND ALERT, LAYING ON HIS RIGHT SIDE. FAMILY PEEKING AT THE WINDOW. PT IS ON 15L NRB AND HIGH FLOW O2 SATING 97%. VSS, AFEBRILE. SR ON TELE MONITOR, HR-89.NO SIGN AND SYMPTOMS OF DISTRESS AT THIS TIME. INSTRUCTED TO CALL FOR ASSISTANCE AT ALL TIMES . PT VERBALIZED UNDERSTANDING. CALL LIGHT WITHIN REACH.WILL CONTINUE POC AND MONITORING.
--- NOTE | 2020-09-13 22:00 | NUR ---
ADMINISTERED ALL THE SCHEDULED MEDICATIONS AND PT TOLERATED IT WELL. NO ADVERSE DRUG REACTION NOTED. CALL LIGHT WITHIN REACH.
--- NOTE | 2020-09-13 23:23 | NUR ---
MADE ROUNDS AND NOTED PATIENT NOSE IS BLEEDING. O2 SATS 0N LOW 80'S WITH LABORED BREATHING AND TACHYPNEIC NOTIFIED Mary Anne LOVE ABOUT THE PT O2SAT AND STATED TO MONITOR THE PT FOR NOW. CLEANED THE PT NOSE AND REPOSITIONED FOR COMFORT. PT COMPLAINT ON LAYING IN PRONE POSITION. NOTED PT SATS WHEN UP TO 91% HR-99. WILL CONTINUE TO MONITOR.
[2020-09-14] VITALS: BP 107/71
--- NOTE | 2020-09-14 02:00 | NUR ---
PATIENT ASLEEP AND IN PRONE POSITION. SATING 98% ON HIGH FLOW O2 40L + 15L NRB, HR 96. VISIBLE CHEST RISE AND FALL NOTED.
--- NOTE | 2020-09-14 03:59 | NUR ---
MADE ROUNDS PATIENT ON PRONE POSITION SATING 97%, HR-91. NOT IN ANY DISTRESS. Addendum: 09/14/20 at 0403 by Gloria Swain RN RN ADDENDUM : PATIENT ON 15L NRB + HIGH FLOW O2 40L.
[2020-09-14 04:00] VITALS: BP 97/70
--- NOTE | 2020-09-14 06:37 | NUR ---
PATIENT DAUGHTER PAUL CALLED AND UPDATED HER WITH THE PT CONDITION OVERNIGHT.
--- NOTE | 2020-09-14 08:30 | NUR ---
NURSE REPORT AND ASSESSMENT Report obtained from night nurse RAFAEL and this nurse assumed care of patient until 1930. Received patient awake and alert and O2 at 15 l/min per NRM and high O2. Tele monitor with SR 88. VSS. Afeb. No c/o pain or discomfort.
[2020-09-14 08:44] LABS: BASOPHILS % (AUTO) 0.1 % (0.0-2.0); EOSINOPHILS # (AUTO) 0.1 K/uL (0-0.4); EOSINOPHILS % (AUTO) 0.4 % (0.0-4.0); HEMATOCRIT 42.5 % (36-52); LYMPHOCYTES # (AUTO) 0.7 K/uL (2.0-11.5); MEAN CORPUSCULAR HEMOGLOBIN 30 pg (27-31); MEAN CORPUSCULAR HGB CONC 33 g/dL (33-37); MONOCYTES # (AUTO) 0.7 K/uL (0.8-1.0); MONOCYTES % (AUTO) 4.7 % (1.7-9.3); NEUTROPHILS # (AUTO) 13.2 K/uL (1.8-7.7); NEUTROPHILS % (AUTO) 89.8 % (42.2-75.2); PLATELET COUNT (AUTO) 305 K/uL (140-450); RED BLOOD CELL COUNT(AUTO) 4.62 MIL/uL (4.20-6.10); RED CELL DISTRIBUTION WIDTH 13.8 % (11.6-13.7); WHITE BLOOD COUNT (AUTO) 14.7 K/uL (4.8-10.8)
[2020-09-14 09:02] LABS: ALBUMIN 2.8 g/dL (3.4-5.0); ANION GAP 9.6 (8-16); CARBON DIOXIDE 32.4 mmol/L (21-32); CREATININE 0.8 mg/dL (0.6-1.3); MAGNESIUM 2.4 mg/dL (1.8-2.4); PHOSPHORUS 4.1 mg/dL (2.5-4.9); TOTAL BILIRUBIN 0.5 mg/dL (0.0-1.0)
[2020-09-14] MEDS: methylPREDNISolone SS 40 MG/ML VIAL IVP SCH ×2 (10:09→21:01)
[2020-09-14] MEDS: ZINC SULF 220 MG CAP PO SCH (10:10)
[2020-09-14] MEDS: ENOXAPARIN 40 MG/0.4 ML SYR SUBQ SCH (10:12)
[2020-09-14] MEDS: ASCORBIC ACID 500 MG TAB PO SCH (10:16)
[2020-09-14] MEDS: LORazepam 2 MG/ML VIAL IVP PRN (15:45)
[2020-09-14 16:00] VITALS: BP 120/69
--- NOTE | 2020-09-14 19:30 | NUR ---
RECEIVED REPORT FROM DESMOND SCHAEFER DAYSHIFT NURSE AT BEDSIDE FOR THE CONTINUITY OF CARE, PT IN STABLE CONDITION.
--- NOTE | 2020-09-14 19:30 | NUR ---
ENDORSEMENT AND NURSE REPORT ENDORSED PT TO DAY RN FOR CONTINUITY OF CARE. PT IS IN STABLE CONDITION. PATIENT REQUEST YANKAUR SUCTION. REMAINS ON DROPLET PRECAUTIONS FOR COVID-19 +
[2020-09-14 20:00] VITALS: BP 123/87
--- NOTE | 2020-09-14 20:30 | NUR ---
PT IN BED AOX4 , HE IS NOTED WITH A BLOODY NOSE IN WHICH HE USES THE YANKAUER TO CLEAN IT. PT HAS 15 LITERS NON REBREATHER AND A 40 LITERS HI FLOW N/C AT 100% FI02. PT IS STATING AT 98%. PT WAS GIVEN ORDERED SOLUMEDROL IVP. PT VERBALIZED UNDERSTANDING OF MEDICATION AND ITS PURPOSE. PT FAMILY WAS OUTSIDE THE WINDOW AND WAS TOLD ABOUT THE SOLUMEDROL AND IT S PURPOSES.
--- NOTE | 2020-09-14 22:00 | NUR ---
UPDATED DAUGHTER PAUL REGARDING HER FATHERS CONDITION. DAUGHTER ALSO WANTED STAFF TO FOLLOW UP ON SPUTUM SAMPLE AND WAS WANTING TO KNOW WHEN THE NEXT CHEST X-RAY WILL BE ORDERED. WILL ENDORSE TO DAY SHIFT NURSE.
--- NOTE | 2020-09-15 00:35 | NUR ---
PT IN BED ALERT WITH NON REBREATHER AND HI FLOW NASAL CANNULA. V/S FOLLOWS: T 97.2 P 88 R 25 B/P 104/69 02 97%.
--- NOTE | 2020-09-15 04:15 | NUR ---
PT IN BED RESTING WITH EYES CLOSED, NO C/O VOICED, HE CONTINUES ON 40L HI FLOW AT 100% AND 15 LITERS NON REBREATHER. ALL ORDERED PRECAUTIONS IN PLACE.
[2020-09-15 07:21] LABS: BASOPHILS # (AUTO) 0.2 K/uL (0.00-0.22); BASOPHILS % (AUTO) 1.1 % (0.0-2.0); EOSINOPHILS # (AUTO) 0.1 K/uL (0-0.4); EOSINOPHILS % (AUTO) 0.5 % (0.0-4.0); HEMATOCRIT 40.5 % (36-52); HEMOGLOBIN 13.2 g/dL (12.0-18.0); LYMPHOCYTES # (AUTO) 0.7 K/uL (2.0-11.5); LYMPHOCYTES % (AUTO) 4.8 % (20.5-51.1); MEAN CORPUSCULAR HEMOGLOBIN 30 pg (27-31); MEAN CORPUSCULAR HGB CONC 33 g/dL (33-37); MEAN CORPUSCULAR VOLUME 92.5 fL (80-94); MONOCYTES # (AUTO) 0.6 K/uL (0.8-1.0); MONOCYTES % (AUTO) 4.3 % (1.7-9.3); NEUTROPHILS # (AUTO) 13.2 K/uL (1.8-7.7); NEUTROPHILS % (AUTO) 89.3 % (42.2-75.2); PLATELET COUNT (AUTO) 263 K/uL (140-450); RED BLOOD CELL COUNT(AUTO) 4.38 MIL/uL (4.20-6.10); RED CELL DISTRIBUTION WIDTH 14.1 % (11.6-13.7); WHITE BLOOD COUNT (AUTO) 14.7 K/uL (4.8-10.8)
--- NOTE | 2020-09-15 07:30 | NUR ---
NURSE REPORT Report obtained from night nurse Opal and this nurse assumed care of patient until 193. Received patient asleep at beginning of dayshift. When awake, alert and oriented. VSS. Afeb. O2 at 15 l/min NRM and hi O2 at 49%. No c/o pain or discomfort. .
[2020-09-15 07:51] LABS: CARBON DIOXIDE 29.6 mmol/L (21-32); CREATININE 0.6 mg/dL (0.6-1.3); POTASSIUM 4.6 mmol/L (3.5-5.1)
[2020-09-15 08:00] VITALS: BP 108/78
[2020-09-15] MEDS: ZINC SULF 220 MG CAP PO SCH (09:35)
[2020-09-15] MEDS: methylPREDNISolone SS 40 MG/ML VIAL IVP SCH ×2 (09:35→20:55)
[2020-09-15] MEDS: ASCORBIC ACID 500 MG TAB PO SCH (09:35)
[2020-09-15] MEDS: ENOXAPARIN 40 MG/0.4 ML SYR SUBQ SCH (09:37)
[2020-09-15 12:00] VITALS: BP 121/79
--- NOTE | 2020-09-15 15:11 | NUR ---
09/15/20 RD FOLLOW UP COMPLETED. PLEASE REFER TO NUTRITION ASSESSMENT UNDER CARE ACTIVITY FOR ESTIMATED NUTRITIONAL NEEDS. 1. RECOMMEND CONTINUE MECHANICAL SOFT DIET WITH ENSURE TID 2. ENCOURAGED PT INCREASE PO INTAKE AND PROTEIN INTAKE 3. RD TO FOLLOW-UP 3-5 DAYS, MODERATE RISK NACNY QUICK, RD
[2020-09-15 16:00] VITALS: BP 125/75
--- NOTE | 2020-09-15 19:30 | NUR ---
ENDORSEMENT REPORT ENDORSED PT TO NIGHT OLIVE SEALS FOR CONTINUITY OF CARE. PT IS IN STABLE CONDITION
--- NOTE | 2020-09-15 19:35 | NUR ---
RECEIVED REPORT FROM CHRISTIANNE RNLOUANN. PT AOX4 ON 15L NRB AND HI FLOW AT 40%. NO S/S RESPIRATORY DISTRESS. NO C/O PAIN AT THIS TIME. IV SITE LAC 22G, LFA, S.L., PATENT AND INTACT. SAFETY MEASURES IN PLACE. CALL LIGHT WITHIN REACH. WILL CONTINUE TO MONITOR
[2020-09-15 20:00] VITALS: BP 100/64
--- NOTE | 2020-09-15 21:00 | NUR ---
ADMINISTERED SCHEDULED MEDICATION, TOLERATED WELL. WILL CONTINUE TO MONITOR
--- NOTE | 2020-09-15 23:00 | NUR ---
PT ASLEEP IN BED, IN SIDE LYING POSITION. RESPIRATIONS EVEN AND UNLABORED. WILL CONTINUE TO MONITOR
[2020-09-16] VITALS: BP 106/56
--- NOTE | 2020-09-16 01:35 | NUR ---
PT ASLEEP IN BED. NO DISTRESS NOTED. WILL CONTINUE TO MONITOR
[2020-09-16 04:00] VITALS: BP 117/73
--- NOTE | 2020-09-16 05:50 | NUR ---
CLEANED CHANGED REPOSITIONED PT, TOLERATED WELL. WILL CONTINUE TO MONITOR
--- NOTE | 2020-09-16 07:35 | NUR ---
ENDORSED PT TO DAY RN FOR CONTINUITY OF CARE. PT IS IN STABLE CONDITION
--- NOTE | 2020-09-16 07:35 | NUR ---
RECEIVED PATIENT FROM NIGHT NURSE. PATIENT IN BED COMFORTABLE. RESP EVEN AND UNLABORED ON 15L NONREBREATHER. LAC 22G LFA 18G SL. NO ACUTE S/S DISTRESS AT THIS TIME. DROPLET PRECAUTION OBSERVED. CALL LIGHT WITHIN REACH. WILL CONTINUE TO MONITOR.
[2020-09-16 07:54] LABS: BASOPHILS % (AUTO) 0.2 % (0.0-2.0); EOSINOPHILS # (AUTO) 0.1 K/uL (0-0.4); EOSINOPHILS % (AUTO) 0.4 % (0.0-4.0); HEMATOCRIT 37.8 % (36-52); HEMOGLOBIN 12.4 g/dL (12.0-18.0); LYMPHOCYTES # (AUTO) 0.8 K/uL (2.0-11.5); MEAN CORPUSCULAR HEMOGLOBIN 30 pg (27-31); MEAN CORPUSCULAR HGB CONC 33 g/dL (33-37); MEAN CORPUSCULAR VOLUME 91.9 fL (80-94); MONOCYTES # (AUTO) 0.7 K/uL (0.8-1.0); MONOCYTES % (AUTO) 4.1 % (1.7-9.3); NEUTROPHILS # (AUTO) 15.4 K/uL (1.8-7.7); PLATELET COUNT (AUTO) 257 K/uL (140-450); RED BLOOD CELL COUNT(AUTO) 4.11 MIL/uL (4.20-6.10); RED CELL DISTRIBUTION WIDTH 13.9 % (11.6-13.7); WHITE BLOOD COUNT (AUTO) 16.9 K/uL (4.8-10.8)
[2020-09-16 08:00] VITALS: BP 129/82
[2020-09-16 08:06] LABS: ANION GAP 9.6 (8-16); CARBON DIOXIDE 34.3 mmol/L (21-32); CREATININE 0.7 mg/dL (0.6-1.3); POTASSIUM 4.9 mmol/L (3.5-5.1)
[2020-09-16 08:36] LABS: LYMPHOCYTES % (AUTO) 4.5 % (20.5-51.1); NEUTROPHILS % (AUTO) 90.8 % (42.2-75.2)
[2020-09-16] MEDS: methylPREDNISolone SS 40 MG/ML VIAL IVP SCH ×2 (10:17→20:58)
[2020-09-16] MEDS: ENOXAPARIN 40 MG/0.4 ML SYR SUBQ SCH (10:17)
[2020-09-16] MEDS: ZINC SULF 220 MG CAP PO SCH (10:18)
[2020-09-16] MEDS: ASCORBIC ACID 500 MG TAB PO SCH (10:19)
--- NOTE | 2020-09-16 10:20 | NUR ---
PATIENT IN BED AWAKE AND ALERT. RESP EVEN AND UNLABORED ON 15L NONREBREATHER WITH 40% HIGH FLOW NC, O2SAT 98%. WILL WEAN PATIENT OFF OXYGEN TOLERATED. PATIENT VERBALIZED UNDERSTANDING. DENIED OF PAIN AT THIS TIME. MORNING ROUTINE MEDICATIONS GIVEN. LAC 18G AND LFA 22G INTACT AND PATENT, SL. SKIN WARM TO TOUCH AND INTACT. PATIENT ABLE TO MAKE NEEDS KNOWN AND FOLLOW COMMAND. HOB ELEVATED. CALL LIGHT WITHIN REACH. WILL CONTINUE TO MONITOR.
[2020-09-16 12:00] VITALS: BP 121/79
--- NOTE | 2020-09-16 12:09 | NUR ---
PATIENT IN BED RESTING. NO ACUTE S/S DISTRESS AT THIS TIME. RESP EVEN AND UNLABORED ON 13L NONREBREATHER AND HIGH FLOW. PATIENT TOLERATING WELL O2SAT 95%. CALL LIGHT WITHIN REACH. WILL CONTINUE TO MONITOR.
--- NOTE | 2020-09-16 14:35 | NUR ---
PATIENT IN BED AWAKE AND ALERT. RESP EVEN AND UNLABORED ON 13L NONREBREATHER AND HIGH FLOW NC, O2SAT 96%. OXYGEN TITRATED DOWN TO 11L NONREBREATHER, O2SAT MAINTAINED 95%. NO NOTED ACUTE S/S DISTRESS. PATIENT IN GOOD SPIRIT. CALL LIGHT WITHIN REACH. WILL CONTINUE TO MONITOR.
--- NOTE | 2020-09-16 16:50 | NUR ---
OXYGEN TITRATED DOWN TO 10L NONREBREATHER WITH HIGH FLOW NC. PATIENT TOLERATED WELL, O2SAT 95%. NO NOTED ACUTE S/S DISTRESS. CALL LIGHT WITHIN REACH. WILL CONTINUE TO MONITOR.
--- NOTE | 2020-09-16 17:05 | NUR ---
PATIENT IN BED AWAKE AND ALERT, O2SAT 94% ON 10L NRB AND HIGH FLOW. NO ACUTE S/S DISTRESS. CALL LIGHT WITHIN REACH. WILL CONTINUE TO MONITOR.
--- NOTE | 2020-09-16 19:20 | NUR ---
ENDORSED PATIENT TO NIGHT NURSE. PATIENT IN STABLE CONDITION.
--- NOTE | 2020-09-16 19:21 | NUR ---
RECEIVED REPORT FROM DAY OLIVE COWAN. PT ASLEEP IN BED. NO S/S RESPIRATORY DISTRESS ON 10L NRB AND HI FLOW 40%. IV SITE LAC 18G, LFA 22G, PATENT AND INTACT, S.L. SAFETY MEASURES IN PLACE. CALL LIGHT WITHIN REACH. WILL CONTINUE TO MONITOR
[2020-09-16 20:00] VITALS: BP 122/80
--- NOTE | 2020-09-16 21:00 | NUR ---
ADMINISTERED SCHEDULED MEDS. PT TOLERATED WELL. WILL CONTINUE TO MONITOR
--- NOTE | 2020-09-17 02:03 | NUR ---
CHECKED ON PT. PT ASLEEP IN BED. O2 SAT 99%. RESPIRATIONS EVEN AND UNLABORED. WILL CONTINUE TO MONITOR
--- NOTE | 2020-09-17 03:53 | NUR ---
PT ASLEEP IN BED. NO DISTRESS NOTED. O2 SAT 96%. WILL CONTINUE TO MONITOR
[2020-09-17 04:00] VITALS: BP 132/72
--- NOTE | 2020-09-17 06:05 | NUR ---
PT ASLEEP IN BED. RESPIRATIONS EVEN AND UNLABORED. O2 SAT 95%, WILL CONTINUE TO MONITOR
--- NOTE | 2020-09-17 07:35 | NUR ---
ENDORSED PT TO DAY RN FOR CONTINUITY OF CARE. PT IS IN STABLE CONDITION
--- NOTE | 2020-09-17 07:36 | NUR ---
RECEIVED REPORT FROM CORPORATE JOB TITLES RN FOR CONTINUITY OF CARE. PATIENT AWAKE, AAOX4, ABLE TO MAKE NEEDS KNOWN. RESPIRATORY EVEN WITH 10L NRB, PLUS 40L HIGH FLOW. SKIN WARM AND DRY. IV SITE LEFT AC 18G AND LEFT FOREARM 22G SALINE LOCK. PATENT, NO S/S OF INFECTION/INFILTRATED. PLAN OF CARE DISCUSSED. VERBALIZED UNDERSTANDING. WILL CONTINUE TO MONITOR.
[2020-09-17 08:00] VITALS: BP 109/83
[2020-09-17 08:51] LABS: BASOPHILS % (AUTO) 0.2 % (0.0-2.0); EOSINOPHILS % (AUTO) 0.3 % (0.0-4.0); HEMATOCRIT 37.4 % (36-52); HEMOGLOBIN 12.3 g/dL (12.0-18.0); LYMPHOCYTES # (AUTO) 0.6 K/uL (2.0-11.5); LYMPHOCYTES % (AUTO) 4.8 % (20.5-51.1); MEAN CORPUSCULAR HEMOGLOBIN 30 pg (27-31); MEAN CORPUSCULAR HGB CONC 33 g/dL (33-37); MEAN CORPUSCULAR VOLUME 92.1 fL (80-94); MONOCYTES # (AUTO) 0.5 K/uL (0.8-1.0); MONOCYTES % (AUTO) 3.5 % (1.7-9.3); NEUTROPHILS # (AUTO) 12.2 K/uL (1.8-7.7); NEUTROPHILS % (AUTO) 91.2 % (42.2-75.2); PLATELET COUNT (AUTO) 248 K/uL (140-450); RED BLOOD CELL COUNT(AUTO) 4.06 MIL/uL (4.20-6.10); WHITE BLOOD COUNT (AUTO) 13.4 K/uL (4.8-10.8)
[2020-09-17] MEDS: methylPREDNISolone SS 40 MG/ML VIAL IVP SCH ×2 (08:54→21:03)
[2020-09-17] MEDS: ZINC SULF 220 MG CAP PO SCH (08:54)
[2020-09-17] MEDS: ASCORBIC ACID 500 MG TAB PO SCH (08:54)
[2020-09-17 08:55] LABS: ANION GAP 8.1 (8-16); CREATININE 0.7 mg/dL (0.6-1.3); POTASSIUM 4.1 mmol/L (3.5-5.1)
[2020-09-17] MEDS: ENOXAPARIN 40 MG/0.4 ML SYR SUBQ SCH (08:55)
--- NOTE | 2020-09-17 08:55 | NUR ---
SCHEDULED MORNING MEDICATIONS GIVEN, EDUCATIONS PROVIDED. SAFETY MEASURES IN PLACE. NO S/S RESPIRATORY DISTRESS NOTED. WILL CONTINUE TO MONITOR.
--- NOTE | 2020-09-17 11:02 | NUR ---
ASSISTED PATIENT WITH BEDPAN. PATIENT HAD 1 BOWEL MOVEMENT. PATIENT TOLERATED THE TURN WELL. ENCOURAGED PATIENT TO KEEP TAKING DEEP BREATH. VERBALIZED UNDERSTANDING. SAFETY MEASURES IN PLACE, WILL CONTINUE TO MONITOR.
[2020-09-17 12:00] VITALS: BP 119/74
--- NOTE | 2020-09-17 13:29 | NUR ---
CHECKED PATIENT, RESTING IN BED HIGH PALMER'S POSITION, NO S/S OF RESPIRATORY DISTRESS NOTED. PATIENT'S AT OUTSIDE OF THE HOSPITAL WATCHING THE PATIENT. ENCOURAGED PATIENT TO USE THE INCENTIVE SPIROMETER IF TOLERABLE. PATIENT VERBALIZED UNDERSTANDING. WILL CONTINUE TO MONITOR.
--- NOTE | 2020-09-17 14:58 | NUR ---
PATIENT SITTING IN BED WITH NO RESPIRATORY DISTRESS NOTED. PATIENT STATED THAT HE HAD USING THE INCENTIVE SPIROMETER, TOLERATED WELL. ENCOURAGED PATIENT TO TAKE DEEP BREATH AND RELAX. SAFETY MEASURES IN PLACE, AT OUTSIDE OF THE HOSPITAL.
[2020-09-17 16:00] VITALS: BP 122/78
--- NOTE | 2020-09-17 17:21 | NUR ---
ENCOURAGED PATIENT TO KEEP HYDRATED. PATIENT RESTING IN BED, NO ACUTE DISTRESS NOTED AT THIS TIME. WILL CONTINUE TO MONITOR.
--- NOTE | 2020-09-17 19:35 | NUR ---
ENDORSED PATIENT TO FIRE OPERATIONS FORESTER RN FOR CONTINUITY OF CARE. PATIENT IN STALE CONDITION. WITH 10L NRB PLUS 40L HIGH FLOW.
--- NOTE | 2020-09-17 19:50 | NUR ---
RECEIVED ENDORSEMENT FROM AM SHIFT RN, PT ON 10L NRB + 40L HI FLOW, NO SOB, NO DISTRESS, SAFETY MEASURES IN PLACE, PLAN OF CARE DISCUSSED, CALL LIGHT WITHIN REACH.
[2020-09-17 20:00] VITALS: BP 124/80
--- NOTE | 2020-09-17 21:18 | NUR ---
PT AWAKE, DUE MEDS GIVEN ORDERED, TOLERATED WELL, NO SOB, CALL LIGHT WITHIN REACH.
[2020-09-18] VITALS: BP 129/84
--- NOTE | 2020-09-18 01:14 | NUR ---
V/S TAKE AND RECORDED, NO SOB, KEPT COMFORTABLE, CALL LIGHT WITHIN REACH.
[2020-09-18 04:00] VITALS: BP 120/87
[2020-09-18 06:42] LABS: EOSINOPHILS % (AUTO) 0.3 % (0.0-4.0); HEMATOCRIT 35.3 % (36-52); HEMOGLOBIN 11.6 g/dL (12.0-18.0); LYMPHOCYTES # (AUTO) 0.5 K/uL (2.0-11.5); LYMPHOCYTES % (AUTO) 3.8 % (20.5-51.1); MEAN CORPUSCULAR HEMOGLOBIN 30 pg (27-31); MEAN CORPUSCULAR HGB CONC 33 g/dL (33-37); MEAN CORPUSCULAR VOLUME 92.2 fL (80-94); MONOCYTES # (AUTO) 0.4 K/uL (0.8-1.0); MONOCYTES % (AUTO) 2.5 % (1.7-9.3); NEUTROPHILS # (AUTO) 12.9 K/uL (1.8-7.7); NEUTROPHILS % (AUTO) 93.4 % (42.2-75.2); PLATELET COUNT (AUTO) 230 K/uL (140-450); RED BLOOD CELL COUNT(AUTO) 3.83 MIL/uL (4.20-6.10); RED CELL DISTRIBUTION WIDTH 14.4 % (11.6-13.7); WHITE BLOOD COUNT (AUTO) 13.9 K/uL (4.8-10.8)
[2020-09-18 07:01] LABS: ANION GAP 11.3 (8-16); CARBON DIOXIDE 33.2 mmol/L (21-32); CREATININE 0.7 mg/dL (0.6-1.3); POTASSIUM 5.5 mmol/L (3.5-5.1)
--- NOTE | 2020-09-18 07:39 | NUR ---
PT STABLE, KEPT COMFORTABLE, CALL LIGHT WITHIN REACH, ALL NEEDS ATTENDED, ENDORSED TO AM SHIFT RN FOR CONTINUITY OF CARE.
[2020-09-18] MEDS: methylPREDNISolone SS 40 MG/ML VIAL IVP SCH ×2 (09:44→21:00)
[2020-09-18] MEDS: ASCORBIC ACID 500 MG TAB PO SCH (09:44)
[2020-09-18] MEDS: ZINC SULF 220 MG CAP PO SCH (09:44)
[2020-09-18] MEDS: ENOXAPARIN 40 MG/0.4 ML SYR SUBQ SCH (09:45)
--- NOTE | 2020-09-18 09:45 | NUR ---
SCHEDULED MEDICATION GIVEN. EDUCATION PROVIDED. PATIENT TOLERATED WELL. TALKED TO THE RT REGARDING TO WEAN OFF THE OXYGEN. PATIENT IS ON 15L NRB PLUS 40L HIGH FLOW. WILL TRY TO WEAN OFF THE NRB AND SEE HOW THE PATIENT TOLERATE. INFORMED PATIENT, VERBALIZED UNDERSTANDING. WILL CONTINUE TO MONITOR.
--- NOTE | 2020-09-18 09:52 | NUR ---
CHANGED WATER FOR HIGH FLOW
--- NOTE | 2020-09-18 11:52 | NUR ---
PATIENT RESTING IN BED WITH SEMI-PALMER'S POSITION. PATIENT IS CALM AND ABLE TO TAKE DEEP BREATH AND USING INCENTIVE SPIROMETER INSTRUCTED. SAFETY MEASURES IN PLACE, NO ACUTE DISTRESS NOTED. WILL CONTINUE TO MONITOR.
[2020-09-18 12:00] VITALS: BP 119/70
--- NOTE | 2020-09-18 13:15 | NUR ---
PATIENT RESTING IN BED COMFORTABLE, NO ACUTE DISTRESS NOTED, SAFETY MEASURES IN PLACE, WILL CONTINUE TO MONITOR.
--- NOTE | 2020-09-18 17:35 | NUR ---
PATIENT SITTING IN BED, FAMILY AT OUTSIDE OF THE BUILDING. PATIENT IN STABLE CONDITION. WILL CONTINUE TO MONITOR.
--- NOTE | 2020-09-18 18:28 | NUR ---
PATIENT RESTING IN BED WITH 40L HIGH FLOW WITH 15L NRB. PATIENT STATED THAT HE PREFER TO KEEP BOTH WHEN HE FALLS ASLEEP. INFORMED THE PATIENT THAT TRY TO WEAN OFF THE OXYGEN AND SEE HOW HE TOLERATED. PATIENT VERBALIZED UNDERSTANDING. WILL CONTINUE TO MONITOR.
--- NOTE | 2020-09-18 19:28 | NUR ---
ENDORSED PATIENT TO FEEDER TENDER RN FOR CONTINUITY OF CARE. PATIENT IN STABLE CONDITION.
[2020-09-18 20:00] VITALS: BP_SYST 124; BP_SYST 159; BP_DIAS 80; BP_DIAS 83
--- NOTE | 2020-09-18 21:00 | NUR ---
PT IN BED 02 AT 93% WITH 15 LITERS NON REBREATHER. PT GIVEN ORDERED SOLUMEDROL IVP. PT ACKNOWLEDGED EDUCATION REGARDING MEDICATION AT BEDSIDE.
--- NOTE | 2020-09-18 22:00 | NUR ---
SPOKE WITH OVER THE PHONE UPDATED ON PT CONDITION.
[2020-09-19] VITALS: BP 118/74
--- NOTE | 2020-09-19 00:45 | NUR ---
PT IN BED RESTING , BUT AROUSABLE TO NAME AND LIGHT TOUCH, PT CONTINUE TO START AT 93% WITH 15 LITERS NON REBREATHER.
--- NOTE | 2020-09-19 02:00 | NUR ---
PT IN BED ALL ORDERED PRECAUTIONS IN PLACE, HE REMAINS AT 93% ON NON REBREATHER.
[2020-09-19 04:00] VITALS: BP 124/79
--- NOTE | 2020-09-19 07:25 | NUR ---
MD WILLIS TEXTED REGARDING PT HI POTASSIUM LEVEL 5.5 EKG WAS ORDERED. NEW ORDERS NOTED.
[2020-09-19 08:40] LABS: BASOPHILS % (AUTO) 0.2 % (0.0-2.0); EOSINOPHILS % (AUTO) 0.1 % (0.0-4.0); HEMATOCRIT 35.9 % (36-52); LYMPHOCYTES # (AUTO) 0.4 K/uL (2.0-11.5); LYMPHOCYTES % (AUTO) 2.5 % (20.5-51.1); MEAN CORPUSCULAR HEMOGLOBIN 31 pg (27-31); MEAN CORPUSCULAR HGB CONC 34 g/dL (33-37); MEAN CORPUSCULAR VOLUME 92.1 fL (80-94); MONOCYTES # (AUTO) 0.4 K/uL (0.8-1.0); MONOCYTES % (AUTO) 2.1 % (1.7-9.3); NEUTROPHILS % (AUTO) 95.1 % (42.2-75.2); PLATELET COUNT (AUTO) 239 K/uL (140-450); RED BLOOD CELL COUNT(AUTO) 3.89 MIL/uL (4.20-6.10); RED CELL DISTRIBUTION WIDTH 14.2 % (11.6-13.7); WHITE BLOOD COUNT (AUTO) 17.8 K/uL (4.8-10.8)
[2020-09-19 09:03] LABS: ANION GAP 9.3 (8-16); CARBON DIOXIDE 35.5 mmol/L (21-32); CREATININE 0.7 mg/dL (0.6-1.3); POTASSIUM 5.8 mmol/L (3.5-5.1)
[2020-09-19] MEDS: ASCORBIC ACID 500 MG TAB PO SCH (09:19)
[2020-09-19] MEDS: methylPREDNISolone SS 40 MG/ML VIAL IVP SCH ×2 (09:19→21:19)
[2020-09-19] MEDS: ZINC SULF 220 MG CAP PO SCH (09:19)
[2020-09-19] MEDS: ENOXAPARIN 40 MG/0.4 ML SYR SUBQ SCH (09:23)
--- NOTE | 2020-09-19 09:25 | NUR ---
SCHEDULED MORNING MEDICATIONS GIVEN, EDUCATION PROVIDED. PATIENT TOLERATED WELL. SAFETY MEASURES IN PLACE, WILL CONTINUE TO MONITOR.
--- NOTE | 2020-09-19 11:01 | NUR ---
CHECKED PATIENT. PATIENT IS OK WITH 15L NRB ONLY. INFORMED PATIENT THAT HE DOES NOT NEED HIGH FLOW SINCE HE IS TOLERATED THE 15L NRB. HE WANTED TO SOMETHING LIKE NASAL CANNULA THAT HE CAN USE WHILE HE IS EATING. INFORMED PATIENT THAT CAN TAKE ONE BITE AND THEN PUT THE MASK BACK ON. BUT PATIENT REQUEST ALTERNATIVE WAY. RT WAS INFORMED. WILL COME TO CHECK THE PATIENT.
[2020-09-19 12:00] VITALS: BP 139/85
[2020-09-19] MEDS ORDERED: SODIUM ZIRCONIUM CYCLOSILICATE 10 GM POWD.PACK PO SCH (12:15)
--- NOTE | 2020-09-19 14:12 | NUR ---
JAMARI GIVEN, EDUCATION PROVIDED REGARDING THE HYPERKALEMIA AND LOW POTASSIUM DIET. VERBALIZED UNDERSTANDING. O2 SAT 94% WITH 15L NRB. NO ACUTE DISTRESS NOTED. WILL CONTINUE TO MONITOR.
--- NOTE | 2020-09-19 16:40 | NUR ---
CHECKED THE PATIENT. O2 SAT 96% WITH 15 L NRB. ENCOURAGED PATIENT TO TAKE DEEP BREATH AND RELAXATION. ALSO USE INCENTIVE SPIROMETER. VERBALIZED UNDERSTANDING. WILL CONTINUE TO MONITOR.
[2020-09-19 17:54] LABS: ANION GAP 10.5 (8-16); CREATININE 0.7 mg/dL (0.6-1.3); POTASSIUM 4.5 mmol/L (3.5-5.1)
--- NOTE | 2020-09-19 19:37 | NUR ---
ENDORSED PATIENT TO CHILD CARE DEVELOPMENT SPECIALIST RN FOR CONTINUITY OF CARE. PATIENT IN STABLE CONDITION WITH 15L NRB, NO MORE HIGH FLOW
--- NOTE | 2020-09-19 19:38 | NUR ---
RECEIVED ENDORSEMENT FROM AM SHIFT RN. PT IN BED, AOX4, NO SOB, ON 15L NRB, SAFETY MEASURES IN PLACE, PLAN OF CARE DISCUSSED, CALL LIGHT WITHIN REACH.
[2020-09-19 20:00] VITALS: BP 123/77
--- NOTE | 2020-09-19 21:25 | NUR ---
O2 SAT AT 90%, NO SOB, AWAKE, DUE MEDS GIVEN ORDERED, TOLERATED WELL, CALL LIGHT WITHIN REACH.
--- NOTE | 2020-09-20 | NUR ---
V/S TAKEN, NO SOB, CALL LIGHT WITHIN REACH.
--- NOTE | 2020-09-20 03:00 | NUR ---
ASLEEP, RESPIRATION EVEN AND UNLABORED.
[2020-09-20 04:00] VITALS: BP 118/69
[2020-09-20 06:48] LABS: BASOPHILS % (AUTO) 0.1 % (0.0-2.0); EOSINOPHILS % (AUTO) 0.2 % (0.0-4.0); HEMATOCRIT 37.5 % (36-52); HEMOGLOBIN 12.6 g/dL (12.0-18.0); LYMPHOCYTES # (AUTO) 0.5 K/uL (2.0-11.5); LYMPHOCYTES % (AUTO) 2.7 % (20.5-51.1); MEAN CORPUSCULAR HEMOGLOBIN 31 pg (27-31); MEAN CORPUSCULAR HGB CONC 34 g/dL (33-37); MEAN CORPUSCULAR VOLUME 91.5 fL (80-94); MONOCYTES # (AUTO) 0.4 K/uL (0.8-1.0); MONOCYTES % (AUTO) 2.1 % (1.7-9.3); NEUTROPHILS # (AUTO) 17.5 K/uL (1.8-7.7); NEUTROPHILS % (AUTO) 94.9 % (42.2-75.2); PLATELET COUNT (AUTO) 242 K/uL (140-450); RED BLOOD CELL COUNT(AUTO) 4.09 MIL/uL (4.20-6.10); RED CELL DISTRIBUTION WIDTH 14.2 % (11.6-13.7); WHITE BLOOD COUNT (AUTO) 18.4 K/uL (4.8-10.8)
--- NOTE | 2020-09-20 07:15 | NUR ---
PT STABLE, ENDORSED TO AM SHIFT RN FOR CONTINUITY OF CARE.
[2020-09-20 07:32] LABS: ALBUMIN 2.9 g/dL (3.4-5.0); ANION GAP 11.9 (8-16); CARBON DIOXIDE 35.2 mmol/L (21-32); CREATININE 0.8 mg/dL (0.6-1.3); MAGNESIUM 2.7 mg/dL (1.8-2.4); PHOSPHORUS 4.7 mg/dL (2.5-4.9); TOTAL BILIRUBIN 0.3 mg/dL (0.0-1.0)
[2020-09-20 09:51] LABS: POTASSIUM 6.1 mmol/L (3.5-5.1)
[2020-09-20 12:00] VITALS: BP 124/80
[2020-09-20] MEDS ORDERED: SODIUM ZIRCONIUM CYCLOSILICATE 10 GM POWD.PACK PO SCH (12:07)
[2020-09-20] MEDS: ZINC SULF 220 MG CAP PO SCH (12:21)
[2020-09-20] MEDS: ASCORBIC ACID 500 MG TAB PO SCH (12:22)
[2020-09-20] MEDS: ENOXAPARIN 40 MG/0.4 ML SYR SUBQ SCH (12:24)
[2020-09-20] MEDS: methylPREDNISolone SS 40 MG/ML VIAL IVP SCH ×2 (12:29→22:02)
--- NOTE | 2020-09-20 12:53 | NUR ---
ADMINISTERED PRESCRIBED MEDS PER MD ORDER. PATIENT TOLERATED WELL. MEDICATION EDUCATION PROVIDED. PATIENT VERBALIZED UNDERSTANDING. SAFETY MEASURES IN PLACE. WILL CONT TO MONITOR.
[2020-09-20] MEDS ORDERED: DEXTROSE 50% 50 ML SYR IVP SCH (13:53)
[2020-09-20] MEDS ORDERED: INSULIN REGULAR, HUMAN 100 UNIT/ML VIAL IVP SCH (13:54)
--- NOTE | 2020-09-20 15:27 | NUR ---
09/20/20 RD FOLLOW UP COMPLETED PLEASE REFER TO NUTRITION ASSESSMENT UNDER CARE ACTIVITY FOR ESTIMATED NUTRITIONAL NEEDS. 1. CONTINUE MECHANICAL SOFT DIET LOW POTASSIUM DIET TOLERATED 2. ENCOURAGED PO INTAKE >75% 3. RD TO FOLLOW-UP 3-5 DAYS, MODERATE RISK ROSARIO ROSARIO, RD
--- NOTE | 2020-09-20 16:20 | NUR ---
ADMINISTERED PRESCRIBED AND PRN MEDS PER MD ORDER. PATIENT TOLERATED WELL. MEDICATION EDUCATION PROVIDED. PATIENT VERBALIZED UNDERSTANDING. SAFETY MEASURES IN PLACE. WILL CONT TO MONITOR.
--- NOTE | 2020-09-20 19:35 | NUR ---
RECEIVED BEDSIDE ENDORSEMENT FROM AM SHIFT RN. PT IS AOX4, NO SOB, ON 15L NRB, SAFETY MEASURES IN PLACE, PLAN OF CARE DISCUSSED, ISOLATION PRECAUTION OBSERVED, CALL LIGHT WITHIN REACH.
[2020-09-20 20:00] VITALS: BP 146/89
[2020-09-20] MEDS: SODIUM ZIRCONIUM CYCLOSILICATE 10 GM POWD.PACK PO SCH (22:04)
--- NOTE | 2020-09-20 22:14 | NUR ---
DUE MEDS GIVEN ORDERED, TOLERATED WELL, O2 SAT 97%. CALL LIGHT WITHIN REACH.
[2020-09-21 04:00] VITALS: BP 112/72
[2020-09-21 06:21] LABS: BASOPHILS % (AUTO) 0.1 % (0.0-2.0); EOSINOPHILS % (AUTO) 0.1 % (0.0-4.0); HEMATOCRIT 38.4 % (36-52); HEMOGLOBIN 12.7 g/dL (12.0-18.0); LYMPHOCYTES # (AUTO) 0.4 K/uL (2.0-11.5); LYMPHOCYTES % (AUTO) 2.9 % (20.5-51.1); MEAN CORPUSCULAR HEMOGLOBIN 31 pg (27-31); MEAN CORPUSCULAR HGB CONC 33 g/dL (33-37); MEAN CORPUSCULAR VOLUME 92.4 fL (80-94); MONOCYTES # (AUTO) 0.3 K/uL (0.8-1.0); MONOCYTES % (AUTO) 2.1 % (1.7-9.3); NEUTROPHILS # (AUTO) 12.7 K/uL (1.8-7.7); NEUTROPHILS % (AUTO) 94.8 % (42.2-75.2); PLATELET COUNT (AUTO) 236 K/uL (140-450); RED BLOOD CELL COUNT(AUTO) 4.16 MIL/uL (4.20-6.10); WHITE BLOOD COUNT (AUTO) 13.4 K/uL (4.8-10.8)
[2020-09-21] MEDS ORDERED: SODIUM ZIRCONIUM CYCLOSILICATE 10 GM POWD.PACK ONE (06:21)
[2020-09-21] MEDS: SODIUM ZIRCONIUM CYCLOSILICATE 10 GM POWD.PACK PO SCH (06:23)
--- NOTE | 2020-09-21 06:28 | NUR ---
PT ASLEEP, AROUSABLE TO NAME, NO SOB, LOKELMA GIVEN ORDERED, CALL LIGHT WITHIN REACH.
--- NOTE | 2020-09-21 07:25 | NUR ---
RECEIVED BEDSIDE REPORT FROM CERTIFIED ACTIVITIES DIRECTOR NURSE. PT IS AOX4, NO SOB, ON 15L NRB SATING AT 91%. IV LAC 18 G AND LFA 22G. INTACT AND PATENT. SKIN IS WARM AND DRY. SAFETY MEASURES IN PLACE, PLAN OF CARE DISCUSSED, ISOLATION PRECAUTION OBSERVED, CALL LIGHT WITHIN REACH. WILL CONTINUE TO MONITOR.
--- NOTE | 2020-09-21 07:40 | NUR ---
PT STABLE, NO SOB, ALL NEEDS ATTENDED, ENDORSED TO AM SHIFT RN FOR CONTINUITY OF CARE.
--- NOTE | 2020-09-21 07:45 | NUR ---
RECEIVED PT FROM AIR CHIPPER NURSE, BEBO, PT IS AWAKE AND ALERT AND ON NRB AT 15L O2, SATURATING AT 95%, IV LINE NOTED ON THE LFA G.22 AND LAC G. 18 BOTH ON SALINE LOCKS, SAFETY AND FALL PRECAUTION IN PLACE, CALL LIGHT WITHIN REACH AND NO SIGN OF DISTRESS NOTED, WILL MONITOR PT.
[2020-09-21 07:48] LABS: ALBUMIN 3.1 g/dL (3.4-5.0); ANION GAP 11.9 (8-16); CARBON DIOXIDE 33.4 mmol/L (21-32); CREATININE 0.8 mg/dL (0.6-1.3); MAGNESIUM 2.2 mg/dL (1.8-2.4); PHOSPHORUS 4.8 mg/dL (2.5-4.9); POTASSIUM 5.3 mmol/L (3.5-5.1); TOTAL BILIRUBIN 0.5 mg/dL (0.0-1.0)
[2020-09-21 08:00] VITALS: BP 134/84
[2020-09-21] MEDS: ASCORBIC ACID 500 MG TAB PO SCH (09:07)
[2020-09-21] MEDS: methylPREDNISolone SS 40 MG/ML VIAL IVP SCH ×2 (09:07→20:28)
[2020-09-21] MEDS: ZINC SULF 220 MG CAP PO SCH (09:09)
[2020-09-21] MEDS: ENOXAPARIN 40 MG/0.4 ML SYR SUBQ SCH (09:12)
--- NOTE | 2020-09-21 09:15 | NUR ---
ALL SCHEDULED MEDS GIVEN. PT IS STABLE. NO RESPIRATORY DISTRESS NOTED. WILL CONTINUE TO MONITOR.
--- NOTE | 2020-09-21 11:30 | NUR ---
PT IS RESTING, BY THE WINDOW OF THE ROOM AND PT HAS NO SIGN OF DISTRESS NOTED.
[2020-09-21 12:00] VITALS: BP 128/81
--- NOTE | 2020-09-21 13:10 | NUR ---
CHECKED ON PATIENT. PATIENT IS RESTING IN BED NO DISTRESS NOTED. WILL CONTINUE TO MONITOR.
--- NOTE | 2020-09-21 16:20 | NUR ---
CHECKED ON PATIENT. PATIENT IS RESTING IN BED NO DISTRESS NOTED. O2 SATURATION SATING AT 91%. WILL CONTINUE TO MONITOR.
--- NOTE | 2020-09-21 19:20 | NUR ---
RECEIVED BEDSIDE REPORT FROM DAY SHIFT NURSE. PATIENT IS AWAKE RESPIRATION EVEN UNLABORED ON 15L NRB MASK. NO DISTRESS NOTED. SKIN IS WARM AND DRY. IV PATENT AND INTACT. SALINE LOCKED. PLAN OF CARE WAS DISCUSSED. ALL SAFETY MEASURES IN PLACE. BED IS AT LOW POSITION. CALL LIGHT WITHIN REACH. WILL CONTINUE TO MONITOR.
--- NOTE | 2020-09-21 19:40 | NUR ---
ENDORSED TO ENTRY LEVEL MECHANICAL ENGINEER NURSE FOR CONTINUITY OF CARE.
[2020-09-21 20:00] VITALS: BP 145/65
--- NOTE | 2020-09-21 20:30 | NUR ---
ALL SCHEDULED MEDS WERE GIVEN PER ORDER. NO ASE NOTED. WILL CONTINUE TO MONITOR.
--- NOTE | 2020-09-21 22:00 | NUR ---
MADE ROUNDS. PATIENT IS AWAKE, RESPIRATION EVEN UNLABORED ON 15L NRB MASK. NO DISTRESS NOTED. WILL CONTINUE TO MONITOR.
[2020-09-22] VITALS: BP 109/71
--- NOTE | 2020-09-22 01:53 | NUR ---
MADE ROUNDS. PATIENT SLEEPING RESPIRATION EVEN UNLABORED ON 15L NRB NO DISTRESS NOTED. WILL CONTINUE TO MONITOR
[2020-09-22 04:00] VITALS: BP 113/79
--- NOTE | 2020-09-22 04:30 | NUR ---
PROVIDED MORNING CARE
--- NOTE | 2020-09-22 07:23 | NUR ---
ENDORSED PATIENT TO DAY SHIFT NURSE FOR CONTINUITY OF CARE.
[2020-09-22 08:00] VITALS: BP 145/65
[2020-09-22 09:28] LABS: BASOPHILS % (AUTO) 0.2 % (0.0-2.0); EOSINOPHILS # (AUTO) 0.1 K/uL (0-0.4); EOSINOPHILS % (AUTO) 0.5 % (0.0-4.0); HEMATOCRIT 37.9 % (36-52); HEMOGLOBIN 12.7 g/dL (12.0-18.0); LYMPHOCYTES # (AUTO) 0.5 K/uL (2.0-11.5); LYMPHOCYTES % (AUTO) 3.3 % (20.5-51.1); MEAN CORPUSCULAR HEMOGLOBIN 31 pg (27-31); MEAN CORPUSCULAR HGB CONC 34 g/dL (33-37); MEAN CORPUSCULAR VOLUME 91.9 fL (80-94); MONOCYTES # (AUTO) 0.4 K/uL (0.8-1.0); MONOCYTES % (AUTO) 2.7 % (1.7-9.3); NEUTROPHILS # (AUTO) 15.2 K/uL (1.8-7.7); NEUTROPHILS % (AUTO) 93.3 % (42.2-75.2); PLATELET COUNT (AUTO) 246 K/uL (140-450); RED BLOOD CELL COUNT(AUTO) 4.12 MIL/uL (4.20-6.10); RED CELL DISTRIBUTION WIDTH 14.9 % (11.6-13.7); WHITE BLOOD COUNT (AUTO) 16.3 K/uL (4.8-10.8)
--- NOTE | 2020-09-22 10:30 | NUR ---
RECEIVED REPORT FROM AMY SCHAEFER FOR CONTINUITY OF CARE. PATIENT AWAKE A/OX4 ON BIPAP FIO2 100% SATING 89% . ABLE TO MAKE NEEDS KNOWN . FAMILY BY THE WINDOW SIDE WATCHING. DENIES ANY PAIN PLAN OF CARE DISCUSSED WITH THE PATIENT AND FAMILY VITALS STABLE WILL CONTINUE TO MONITOR.
[2020-09-22 10:41] LABS: ANION GAP 11.2 (8-16); CARBON DIOXIDE 34.2 mmol/L (21-32); CREATININE 0.7 mg/dL (0.6-1.3); MAGNESIUM 2.7 mg/dL (1.8-2.4); PHOSPHORUS 4.2 mg/dL (2.5-4.9); POTASSIUM 5.4 mmol/L (3.5-5.1); TOTAL BILIRUBIN 0.5 mg/dL (0.0-1.0)
[2020-09-22] MEDS: methylPREDNISolone SS 40 MG/ML VIAL IVP SCH ×2 (11:10→20:25)
[2020-09-22] MEDS: ASCORBIC ACID 500 MG TAB PO SCH (11:10)
[2020-09-22] MEDS: ZINC SULF 220 MG CAP PO SCH (11:10)
[2020-09-22] MEDS: ENOXAPARIN 40 MG/0.4 ML SYR SUBQ SCH (11:11)
--- NOTE | 2020-09-22 12:00 | NUR ---
PLACED PATIENT ON 15L NRB SATING 90% ASSIST PATIENT WITH LUNCH ENCOURAGE HIM TO RELAX AND REST BETWEEN MEALS VERBALIZED UNDERSTANDING. VITALS STABLE WILL CONTINUE TO MONITOR.
--- NOTE | 2020-09-22 16:00 | NUR ---
PT C/O SOB RT PLACED HIM ON BIPAP NO DISTRESS NOTED , CALM AND QUITE COOPERATIVE. VITALS STABLE AT THIS TIME.
--- NOTE | 2020-09-22 18:00 | NUR ---
PLACED PT ON 15LNRB SATING 93% EATING DINNER AT THIS TIME
--- NOTE | 2020-09-22 19:30 | NUR ---
RECEIVED BEDSIDE REPORT FROM DAY SHIFT NURSE. PATIENT IS EATING AND USING 15L NON-REBREATHER MASK RIGHT NOW. NO DISTRESS NOTED. SKIN IS WARM AND DRY. IV PATENT AND INTACT. SALINE LOCKED. PLAN OF CARE WAS DISCUSSED. ALL SAFETY MEASURES IN PLACE. BED IS AT LOW POSITION. CALL LIGHT WITHIN REACH. WILL CONTINUE TO MONITOR.
[2020-09-22 20:00] VITALS: BP 115/75
[2020-09-22] MEDS: SODIUM ZIRCONIUM CYCLOSILICATE 10 GM POWD.PACK PO SCH (20:25)
--- NOTE | 2020-09-22 20:25 | NUR ---
ALL SCHEDULED MEDS WERE GIVEN PER ORDER. NO ASE NOTED. WILL CONTINUE TO MONITOR.
--- NOTE | 2020-09-22 21:54 | NUR ---
MADE ROUNDS. PATIENT SLEEPING RESPIRATION EVEN UNLABORED ON 15L NRB MASK. NO DISTRESS NOTED, WILL CONTINUE TO MONITOR.
--- NOTE | 2020-09-22 23:00 | NUR ---
PATIENT START DESATURATING TO LOW 80'S. NOTIFY RT. PLACED PATIENT BACK ON BIPAP
[2020-09-23] VITALS: BP 132/89
--- NOTE | 2020-09-23 02:30 | NUR ---
PATIENT COMPLAINED OF COUGH. WILL NOTIFY MD AND ASK FOR COUGH MEDICINE
--- NOTE | 2020-09-23 03:15 | NUR ---
CHECKED ON PATIENT. PATIENT IS ASLEEP RESPIRATION EVEN UNLABORED ON BIPAP. WILL CONTINUE TO MONITOR
[2020-09-23 04:00] VITALS: BP 123/87
--- NOTE | 2020-09-23 07:36 | NUR ---
ENDORSED PATIENT TO DAY SHIFT NURSE FOR CONTINUITY OF CARE.
--- NOTE | 2020-09-23 07:37 | NUR ---
RECEIVED REPORT FROM BODY BUMPER NURSE. PATIENT IN STABLE CONDITION.
[2020-09-23 08:00] VITALS: BP 124/83
[2020-09-23] MEDS: SODIUM ZIRCONIUM CYCLOSILICATE 10 GM POWD.PACK PO SCH (09:00)
--- NOTE | 2020-09-23 09:20 | NUR ---
SCHEDULED MEDICATIONS DUE GIVEN. WILL CONTINUE TO MONITOR.
[2020-09-23] MEDS: ENOXAPARIN 40 MG/0.4 ML SYR SUBQ SCH (09:28)
[2020-09-23] MEDS: ZINC SULF 220 MG CAP PO SCH (09:28)
[2020-09-23] MEDS: methylPREDNISolone SS 40 MG/ML VIAL IVP SCH ×2 (09:29→20:15)
[2020-09-23] MEDS: ASCORBIC ACID 500 MG TAB PO SCH (09:29)
[2020-09-23 09:36] LABS: BASOPHILS % (AUTO) 0.1 % (0.0-2.0); EOSINOPHILS # (AUTO) 0.1 K/uL (0-0.4); EOSINOPHILS % (AUTO) 0.5 % (0.0-4.0); HEMATOCRIT 35.6 % (36-52); HEMOGLOBIN 11.9 g/dL (12.0-18.0); LYMPHOCYTES # (AUTO) 0.5 K/uL (2.0-11.5); LYMPHOCYTES % (AUTO) 4.3 % (20.5-51.1); MEAN CORPUSCULAR HEMOGLOBIN 31 pg (27-31); MEAN CORPUSCULAR HGB CONC 34 g/dL (33-37); MEAN CORPUSCULAR VOLUME 91.5 fL (80-94); MONOCYTES # (AUTO) 0.4 K/uL (0.8-1.0); MONOCYTES % (AUTO) 3.3 % (1.7-9.3); NEUTROPHILS # (AUTO) 11.7 K/uL (1.8-7.7); NEUTROPHILS % (AUTO) 91.8 % (42.2-75.2); PLATELET COUNT (AUTO) 228 K/uL (140-450); RED BLOOD CELL COUNT(AUTO) 3.89 MIL/uL (4.20-6.10); WHITE BLOOD COUNT (AUTO) 12.7 K/uL (4.8-10.8)
[2020-09-23 09:50] LABS: ANION GAP 10.4 (8-16); CREATININE 0.7 mg/dL (0.6-1.3); POTASSIUM 3.4 mmol/L (3.5-5.1)
[2020-09-23 10:01] LABS: MAGNESIUM 2.5 mg/dL (1.8-2.4); PHOSPHORUS 3.9 mg/dL (2.5-4.9)
[2020-09-23 12:00] VITALS: BP 117/82
--- NOTE | 2020-09-23 12:30 | NUR ---
ASSISTED PATIENT TO PRONE. WILL CONTINUE TO MONITOR.
[2020-09-23 16:00] VITALS: BP 132/83
--- NOTE | 2020-09-23 16:40 | NUR ---
PATIENT BACK IN SUPINE POSITION. ON NON-REBREATHER .WILL CONTINUE TO MONITOR
[2020-09-23 17:13] LABS: ANION GAP 10.9 (8-16); CARBON DIOXIDE 31.7 mmol/L (21-32); CREATININE 0.6 mg/dL (0.6-1.3); POTASSIUM 3.6 mmol/L (3.5-5.1)
--- NOTE | 2020-09-23 19:26 | NUR ---
GAVE REPORT TO NIGHT NURSE FOR CONTINUITY OF CARE. PATIENT IN STABLE CONDITION.
[2020-09-23 20:00] VITALS: BP 123/85
--- NOTE | 2020-09-23 22:35 | NUR ---
PATIENT COMPLAINED OF COUGH. PRN COUGH GIVEN PER ORDER. WILL CONTINUE TO MONITOR.
[2020-09-23] MEDS: guaiFENesin DM 200/20 MG-10 ML 10 ML UDC PO PRN (22:37)
[2020-09-24] VITALS: BP 99/69
--- NOTE | 2020-09-24 00:08 | NUR ---
VITALS WERE TAKEN. PATIENT IN STABLE CONDITION. NO DISTRESS NOTED. WILL CONTINUE TO MONITOR.
--- NOTE | 2020-09-24 02:24 | NUR ---
MADE ROUNDS. PATIENT SLEEPING RESPIRATION EVEN UNLABORED 15L NRB MASK. NO DISTRESS NOTED. WILL CONTINUE TO MONITOR
[2020-09-24 04:00] VITALS: BP 137/89
--- NOTE | 2020-09-24 04:29 | NUR ---
VITALS WERE TAKEN. PATIENT IN STABLE CONDITION. NO DISTRESS NOTED.
--- NOTE | 2020-09-24 05:22 | NUR ---
PROVIDED MORNING CARE
[2020-09-24 06:46] LABS: BASOPHILS % (AUTO) 0.2 % (0.0-2.0); EOSINOPHILS # (AUTO) 0.1 K/uL (0-0.4); HEMATOCRIT 39.8 % (36-52); HEMOGLOBIN 13.2 g/dL (12.0-18.0); LYMPHOCYTES # (AUTO) 0.8 K/uL (2.0-11.5); LYMPHOCYTES % (AUTO) 6.6 % (20.5-51.1); MEAN CORPUSCULAR HEMOGLOBIN 31 pg (27-31); MEAN CORPUSCULAR HGB CONC 33 g/dL (33-37); MEAN CORPUSCULAR VOLUME 92.7 fL (80-94); MONOCYTES # (AUTO) 0.5 K/uL (0.8-1.0); MONOCYTES % (AUTO) 3.9 % (1.7-9.3); NEUTROPHILS % (AUTO) 88.3 % (42.2-75.2); PLATELET COUNT (AUTO) 232 K/uL (140-450); RED CELL DISTRIBUTION WIDTH 15.2 % (11.6-13.7); WHITE BLOOD COUNT (AUTO) 12.5 K/uL (4.8-10.8)
[2020-09-24 07:41] LABS: ANION GAP 10.9 (8-16); CARBON DIOXIDE 32.8 mmol/L (21-32); CREATININE 0.6 mg/dL (0.6-1.3); POTASSIUM 3.7 mmol/L (3.5-5.1)
--- NOTE | 2020-09-24 07:43 | NUR ---
ENDORSED PATIENT TO DAY SHIFT NURSE FOR CONTINUITY OF CARE
[2020-09-24 07:51] LABS: MAGNESIUM 2.6 mg/dL (1.8-2.4)
[2020-09-24 08:00] VITALS: BP 115/80
[2020-09-24] MEDS: methylPREDNISolone SS 40 MG/ML VIAL IVP SCH ×6 (09:30→13:43)
[2020-09-24] MEDS: ASCORBIC ACID 500 MG TAB PO SCH ×2 (09:31→09:36)
[2020-09-24] MEDS: ZINC SULF 220 MG CAP PO SCH ×2 (09:31→09:36)
[2020-09-24] MEDS: ENOXAPARIN 40 MG/0.4 ML SYR SUBQ SCH ×2 (09:32→09:37)
[2020-09-24 12:00] VITALS: BP 126/87
[2020-09-24 16:00] VITALS: BP 115/80
[2020-09-24 20:00] VITALS: BP 142/99
--- NOTE | 2020-09-24 22:18 | NUR ---
CALLED TO BEDSIDE PT WAS DESAT LOW 80s PT APPEARED TO BE HAVING ANXIETY PT CONFIRMED HE HAS ANXIETY AND WAS FEELING ANXIOUS PT WAS REPOSITIONED AND REASSURED HE CALMED DOWN SPO2 CLIMBED BACK TO 86-95%
[2020-09-25] VITALS: BP 124/74
[2020-09-25 04:00] VITALS: BP 138/93
--- NOTE | 2020-09-25 07:44 | NUR ---
RECEIVED REPORT FROM METAL COATER OPERATOR NURSE. PATIENT IN STABLE CONDITION.
[2020-09-25 08:00] VITALS: BP 112/83
--- NOTE | 2020-09-25 09:30 | NUR ---
PATIENT LYING DOWN IN BED SLEEPING, AROUSABLE BY VOICE. CONDITION UNCHANGED. WILL CONTINUE TO MONITOR.
--- NOTE | 2020-09-25 11:30 | NUR ---
TRIED TITRATING NON-REBREATHER OXYGEN DOWN TO 10L/MIN, PATIENT DESAT TO 80%, BROUGHT BACK UP TO 15L/MIN. WILL CONTINUE TO MONITOR.
[2020-09-25 12:00] VITALS: BP 128/80
--- NOTE | 2020-09-25 15:00 | NUR ---
PATIENT LYING DOWN IN BED, CONDITION UNCHANGED. WILL CONTINUE TO MONITOR.
--- NOTE | 2020-09-25 15:26 | NUR ---
09/25/20 RD FOLLOW UP COMPLETED. PLEASE REFER TO NUTRITION ASSESSMENT UNDER CARE ACTIVITY FOR ESTIMATED NUTRITIONAL NEEDS. 1. CONTINUE MECHANICAL SOFT DIET LOW POTASSIUM DIET TOLERATED 2. ENSURE TID FOR ADDITIONAL KCALS/PRO 3. RD TO FOLLOW-UP 3-5 DAYS, MODERATE RISK NANCY QUICK, RD
[2020-09-25 16:00] VITALS: BP 119/79
--- NOTE | 2020-09-25 19:00 | NUR ---
Patient received in bed alert and oriented x 3. No complaint of pain, self repositions for comfort. Rn discussed with patient medical plan of care. Teaching and education of plan of care. Medications action, purpose and side effects. Disease process and interventions. Fall and safety precautions and RN plan of care. Patient receptive to RN instructions and medical plan of care. VSS. No acute distress noted. Will continue with plan of care. VSS.
--- NOTE | 2020-09-25 19:25 | NUR ---
GAVE REPORT TO MEAT INSPECTOR NURSE FOR CONTINUITY OF CARE. PATIENT IN STABLE CONDITION.
[2020-09-25 20:00] VITALS: BP 137/92
[2020-09-25] MEDS: methylPREDNISolone SS 40 MG/ML VIAL IVP SCH (21:00)
[2020-09-26] VITALS: BP 138/94
--- NOTE | 2020-09-26 | NUR ---
Patient sleeping during rounding, easily aroused. Vital signs stable. denies any pain or discomfort. Fall and safety precautions maintained. Medications administered as ordered. No adverse effects note. Acyanotic. No acute distress noted.
[2020-09-26 04:00] VITALS: BP 142/94
[2020-09-26 07:17] LABS: HEMATOCRIT 37.1 % (36-52); HEMOGLOBIN 12.5 g/dL (12.0-18.0); LYMPHOCYTES # (AUTO) 0.2 K/uL (2.0-11.5); LYMPHOCYTES % (AUTO) 2.2 % (20.5-51.1); MEAN CORPUSCULAR HEMOGLOBIN 31 pg (27-31); MEAN CORPUSCULAR HGB CONC 34 g/dL (33-37); MEAN CORPUSCULAR VOLUME 92.4 fL (80-94); MONOCYTES # (AUTO) 0.1 K/uL (0.8-1.0); MONOCYTES % (AUTO) 0.7 % (1.7-9.3); NEUTROPHILS # (AUTO) 10.5 K/uL (1.8-7.7); NEUTROPHILS % (AUTO) 97.1 % (42.2-75.2); PLATELET COUNT (AUTO) 218 K/uL (140-450); RED BLOOD CELL COUNT(AUTO) 4.01 MIL/uL (4.20-6.10); RED CELL DISTRIBUTION WIDTH 15.4 % (11.6-13.7); WHITE BLOOD COUNT (AUTO) 10.9 K/uL (4.8-10.8)
[2020-09-26 07:19] LABS: ANION GAP 12.5 (8-16); CARBON DIOXIDE 34.7 mmol/L (21-32); CREATININE 0.6 mg/dL (0.6-1.3); POTASSIUM 5.2 mmol/L (3.5-5.1)
--- NOTE | 2020-09-26 07:45 | NUR ---
RECEIVED REPORT FROM STORE CLERK FOR CONTINUITY OF CARE. PATIENT RESTING IN BED WITH RIGHT LATERAL POSITION. RESPIRATORY EVEN WITH 15L NRB. O2 SAT 100%. HR 90. AAOX4. SKIN DRY, INTACT. IV SITE LEFT AC 18 G AND LEFT FOREARM 22G SALINE LOCK. ABDOMEN SOFT AND NON TENDER. SAFETY MEASURES IN PLACE, WILL CONTINUE TO MONITOR.
[2020-09-26 08:00] VITALS: BP 137/83
[2020-09-26] MEDS: ZINC SULF 220 MG CAP PO SCH (09:05)
[2020-09-26] MEDS: methylPREDNISolone SS 40 MG/ML VIAL IVP SCH (09:05)
[2020-09-26] MEDS: ASCORBIC ACID 500 MG TAB PO SCH (09:05)
[2020-09-26] MEDS: ENOXAPARIN 40 MG/0.4 ML SYR SUBQ SCH (09:05)
--- NOTE | 2020-09-26 09:08 | NUR ---
SCHEDULED MEDICATIONS GIVEN, EDUCATION PROVIDED. PATIENT RESTING IN BED AWAKE, O2 SAT 94%-99% WITH 15L NRB. ENCOURAGED PATIENT TO TAKE DEEP BREATHE AND RELAX. VERBALIZED UNDERSTANDING. SAFETY MEASURES IN PLACE, WILL CONTINUE TO MONITOR.
--- NOTE | 2020-09-26 11:48 | NUR ---
CHANGED 15L NRB TO 15L OXIMIZER, PER DR. SPENCER'S ORDER. PATIENT'S O2 SAT 90-93%. INSTRUCTED THE PATIENT HOW TO TAKE DEEP BREATHE. SAFETY MEASURES IN PLACE, WILL CONTINUE TO MONITOR.
[2020-09-26] MEDS ORDERED: SODIUM ZIRCONIUM CYCLOSILICATE 10 GM POWD.PACK PO SCH (12:45)
--- NOTE | 2020-09-26 13:14 | NUR ---
JAMARI GIVEN FOR POTASSIUM LEVEL 5.2, PER MD ORDER. EDUCATION PROVIDED, VERBALIZED UNDERSTANDING. O2 SAT 90% WITH 15L OXIMIZER, SAFETY MEASURES IN PLACE, WILL CONTINUE TO MONITOR.
--- NOTE | 2020-09-26 15:13 | NUR ---
MADE ROUNDS. PATIENT RESTING IN BED PLAYING WITH HIS CELLPHONE. O2 SAT 92% WITH 15L OXIMIZER, NO ACUTE DISTRESS NOTED. WILL CONTINUE TO MONITOR.
[2020-09-26 16:00] VITALS: BP 126/92
--- NOTE | 2020-09-26 17:55 | NUR ---
PATIENT RESTING IN BED WITH SEMI PALMER'S POSITION. O2 SAT 95% WITH 15L OXIMIZER. SAFETY MEASURES IN PLACE. WILL CONTINUE TO MONITOR.
--- NOTE | 2020-09-26 18:44 | NUR ---
CHECKED PATIENT. O2 SAT 94% WITH 15L NRB. NO ACUTE DISTRESS NOTED. WILL CONTINUE TO MONITOR.
--- NOTE | 2020-09-26 19:13 | NUR ---
ENDORSED PATIENT TO ATTORNEY AT LAW RN FOR CONTINUITY OF CARE. PATIENT IN STABLE CONDITION. O2 SAT 95% WITH 15L OXIMIZER.
--- NOTE | 2020-09-26 19:15 | NUR ---
RECEIVED PT ON BED, AAOX4, NO RESP DISTRESS NOTED, SAT-96% ON 3L NC, MAINTAINED ON DROPLET PRECAUTION FOR COVID POSITIVE, RT FEMORAL HD CATH IN PLACE, DRESSING DRY AND INTACT, SAFETY MEASURES IN PLACE, CALL LIGHT WITHIN REACH.
[2020-09-26 20:00] VITALS: BP 126/82
[2020-09-27] MEDS: guaiFENesin DM 200/20 MG-10 ML 10 ML UDC PO PRN ×2 (00:01→18:45)
--- NOTE | 2020-09-27 00:10 | NUR ---
SEEN PT WITH SAT OF 88-90% ON 15L OXIMIZER, SAT GOES DOWN TO 83% WHEN PT IS COUGHING OR TALKING, COUGH MEDICATION GIVEN, MAINTAINED ON FOWLERS POSITION, CONTINUE TO MONITOR CLOSELY.
--- NOTE | 2020-09-27 03:50 | NUR ---
SEEN PT SLEEPING, SAT-88-89% ON 15L OXIMIZER, NO RESP DISTRESS NOTED, MONITORED CLOSELY.
[2020-09-27 04:00] VITALS: BP 113/85
--- NOTE | 2020-09-27 04:30 | NUR ---
SEEN PT SLEEPING WITH SAT OF 84-86%, NO SIGNS OF RESP DISTRESS NOTED, AWAKEN PT AND SAT WENT UP TO 88-91%, MONITORED CLOSELY.
--- NOTE | 2020-09-27 06:00 | NUR ---
PT SEEN SLEEPING WITH SAT OF 80%, WOKE UP PT AND REPOSITIONED TO SITTING POSITION, SAT WENT UP TO 84%, PUT BACK ON NONREBREATHER MASK AND SAT WENT UP TO 90%, MONITORED CLOSELY.
[2020-09-27 06:13] LABS: BASOPHILS % (AUTO) 0.1 % (0.0-2.0); EOSINOPHILS # (AUTO) 0.2 K/uL (0-0.4); EOSINOPHILS % (AUTO) 1.7 % (0.0-4.0); HEMATOCRIT 37.7 % (36-52); HEMOGLOBIN 12.6 g/dL (12.0-18.0); LYMPHOCYTES # (AUTO) 0.7 K/uL (2.0-11.5); LYMPHOCYTES % (AUTO) 5.8 % (20.5-51.1); MEAN CORPUSCULAR HEMOGLOBIN 31 pg (27-31); MEAN CORPUSCULAR HGB CONC 34 g/dL (33-37); MEAN CORPUSCULAR VOLUME 92.6 fL (80-94); MONOCYTES # (AUTO) 0.6 K/uL (0.8-1.0); MONOCYTES % (AUTO) 4.6 % (1.7-9.3); NEUTROPHILS # (AUTO) 10.8 K/uL (1.8-7.7); NEUTROPHILS % (AUTO) 87.8 % (42.2-75.2); PLATELET COUNT (AUTO) 217 K/uL (140-450); RED BLOOD CELL COUNT(AUTO) 4.07 MIL/uL (4.20-6.10); RED CELL DISTRIBUTION WIDTH 15.6 % (11.6-13.7); WHITE BLOOD COUNT (AUTO) 12.3 K/uL (4.8-10.8)
[2020-09-27 06:53] LABS: ANION GAP 10.4 (8-16); CARBON DIOXIDE 33.7 mmol/L (21-32); CREATININE 0.6 mg/dL (0.6-1.3); POTASSIUM 4.1 mmol/L (3.5-5.1)
--- NOTE | 2020-09-27 07:20 | NUR ---
PT AWAKE ON HIGH FOWLERS POSITION, SAT-89%, NO RESP DISTRESS NOTED, REPORT GIVEN TO RN RELYN FOR CONTINUITY OF CARE.
--- NOTE | 2020-09-27 07:21 | NUR ---
RECEIVED ENDORSEMENT FROM STEEL MOLDER, AWAKE, ALERT, WITH O2 AT 15L/MIN VIA NON REBREATHER MASK, [id number]%,NOT IN DISTRESS NOTED. WITH IV CANNULA G18 AT LEFT AC AND LEFT FOREARM G22 ON SALINE LOCK NOTED. SAFETY MEASURES IN PLACE AND CONTINUE MONITOR,
[2020-09-27] MEDS: methylPREDNISolone SS 40 MG/ML VIAL IVP SCH (08:23)
[2020-09-27] MEDS: ENOXAPARIN 40 MG/0.4 ML SYR SUBQ SCH (08:26)
--- NOTE | 2020-09-27 08:36 | NUR ---
FULLY AWAKE AND ALERT, DUE MEDICATION GIVEN
--- NOTE | 2020-09-27 10:36 | NUR ---
FULLY AWAKE AND ALERT, NOT IN DISTRESS NOTED.
[2020-09-27] MEDS ORDERED: ALBUTEROL SULFATE/IPRATROPIU 3 ML SOL IH PRN (11:45)
[2020-09-27 12:00] VITALS: BP 119/86
--- NOTE | 2020-09-27 12:20 | NUR ---
O2 TAPER DOWN TO 14L/MIN VIA OXYMIZER, [id number]%, NON LABORED NOTED. LUNCH SERVED
[2020-09-27] MEDS: ALBUTEROL SULFATE/IPRATROPIU 3 ML SOL IH SCH (13:00)
--- NOTE | 2020-09-27 14:54 | NUR ---
FULLY AWAKE, NOT IN DISTRESS [id number]-53% AT 14L/MIN VIA OXYMIZER. SUCTION CANIHSAN AND ALEK CHANGED
--- NOTE | 2020-09-27 16:02 | NUR ---
AWAKE, NOT IN DISTRESS NOTED
--- NOTE | 2020-09-27 18:05 | NUR ---
02sat-88-89% BUT COMPLAINED OF SOB, PLACED ON NON REBREATHER MASK AT 15L, [id number]-05-66% NOTED. DINNER SERVED, ENSURE OFFERED AND DRINK 1/2 OF THE BOTTLE.
--- NOTE | 2020-09-27 18:45 | NUR ---
COMPLAINED OF INTERMITTENT NON PRODUCTIVE COUGH, ROBITUSSIN PO ORDERED PRN GIVEN,HEALTH TEACHING PROVIDED, VERBALIZED UNDERSTANDING
--- NOTE | 2020-09-27 19:25 | NUR ---
ENDORSED TO SENIOR PROPERTY ACCOUNTANT IN STABLE CONDITION FOR CONTINUITY OF CARE
--- NOTE | 2020-09-27 19:25 | NUR ---
RECEIVED PT AAOX4 , W/ ON AND OFF LABORED BREATHING - UP AND DOWN O2 SAT - PER AM NURSE PT BEEN ON 87 THIS AM - THAT WHY THE NURSE SHIFT BACK FROM OXYMIZER TO NRM 15LPM. IV SITE INTACT AND PATENT . HOOK ON OS2 SAT MONITOR , PT'S RELATIVE IS VIEWING OVER THE WINDOW . SAFETY MEASURES IN PLACE CALL LIGHT WITHIN REACH . POC DISCUSSED AND VERBALIZE [id number] . WILL CONT. TO MONITOR .
[2020-09-27 20:00] VITALS: BP 129/82
--- NOTE | 2020-09-27 23:31 | NUR ---
UP AND DOWN O2 SAT - ON NRM - WILL REFER TO RT FOR FURTHER ASSESSMENT
--- NOTE | 2020-09-27 23:38 | NUR ---
SHOWING ANXIETY HE SAID I COUGHING A LOT I'M WORRY A LOT - O2 SAT 91 % BP 122/87 - WILL MEDICATE FOR ANXIETY
[2020-09-27] MEDS: LORazepam 2 MG/ML VIAL IVP PRN (23:43)
--- NOTE | 2020-09-27 23:51 | NUR ---
O2 SAT 91 %
--- NOTE | 2020-09-28 02:36 | NUR ---
SLEEPING - O2 SAT 96 % , RELATIVES VIEWING OVER THE WINDOW . WILL CONT. TO MONITOR, CALL LIGHT WITHIN REACH .
[2020-09-28 04:00] VITALS: BP 116/92
--- NOTE | 2020-09-28 04:00 | NUR ---
O2 SAT 91 % - SLEEPY BUT AWAKEABLE , PT'S RELATIVE VIEWING OVER THE WINDOW , WILL CONT. TO MONITOR .
--- NOTE | 2020-09-28 05:51 | NUR ---
AWAKE - O2 SAT 97 % - I SAID GOOD MORNING SIR , - HE REPLIED GOOD MORNING TOO . PT'S RELATIVE VIEWING OVER THE WINDOW . WILL CONT. TO MONITOR
[2020-09-28 06:24] LABS: BASOPHILS % (AUTO) 0.2 % (0.0-2.0); EOSINOPHILS # (AUTO) 0.2 K/uL (0-0.4); EOSINOPHILS % (AUTO) 1.9 % (0.0-4.0); HEMOGLOBIN 12.6 g/dL (12.0-18.0); LYMPHOCYTES # (AUTO) 1.1 K/uL (2.0-11.5); LYMPHOCYTES % (AUTO) 8.2 % (20.5-51.1); MEAN CORPUSCULAR HEMOGLOBIN 31 pg (27-31); MEAN CORPUSCULAR HGB CONC 33 g/dL (33-37); MEAN CORPUSCULAR VOLUME 93.4 fL (80-94); MONOCYTES # (AUTO) 0.6 K/uL (0.8-1.0); MONOCYTES % (AUTO) 4.9 % (1.7-9.3); NEUTROPHILS % (AUTO) 84.8 % (42.2-75.2); PLATELET COUNT (AUTO) 232 K/uL (140-450); RED BLOOD CELL COUNT(AUTO) 4.07 MIL/uL (4.20-6.10); RED CELL DISTRIBUTION WIDTH 15.5 % (11.6-13.7); WHITE BLOOD COUNT (AUTO) 12.9 K/uL (4.8-10.8)
--- NOTE | 2020-09-28 07:22 | NUR ---
ENDORSED - PT - STABLE - O2 SAT 99 % TO 100 % - STILL SLEEPY BUT AWAKEABLE - PT'S RELATIVES VIEWING FROM THE THE WINDOW,
--- NOTE | 2020-09-28 07:23 | NUR ---
RECEIVED ENDORSEMENT FROM STAB SETTER AND DRILLER, ASLEEP ON BED WITH O2 AT 15L/MIN VIA NON REBREATHER MASK, [id number]%,NOT IN DISTRESS NOTED. WITH IV CANNULA G18 AT LEFT AC AND LEFT FOREARM G22 ON SALINE LOCK NOTED. SAFETY MEASURES IN PLACE AND CONTINUE MONITOR,
[2020-09-28 07:45] LABS: ANION GAP 8.8 (8-16); CARBON DIOXIDE 37.3 mmol/L (21-32); CREATININE 0.6 mg/dL (0.6-1.3); POTASSIUM 3.1 mmol/L (3.5-5.1)
[2020-09-28] MEDS: ALBUTEROL SULFATE/IPRATROPIU 3 ML SOL IH SCH ×3 (07:50→19:15)
[2020-09-28 08:00] VITALS: BP 123/83
[2020-09-28] MEDS: ENOXAPARIN 40 MG/0.4 ML SYR SUBQ SCH (08:31)
[2020-09-28] MEDS: methylPREDNISolone SS 40 MG/ML VIAL IVP SCH (08:32)
--- NOTE | 2020-09-28 08:36 | NUR ---
FULLY AWAKE AND ALERT, BREAKFAST SERVED. DUE MEDICATION GIVEN
[2020-09-28] MEDS ORDERED: POTASSIUM CHLORIDE 10 MEQ TABER PO SCH (09:30)
--- NOTE | 2020-09-28 10:31 | NUR ---
POTASSIUM LEVEL-3.1, K DUR 40MEQ TAB PO ONCE GIVEN ORDERED, ENSURE OFFERED ND ABLE TO DRINK 200ML
--- NOTE | 2020-09-28 13:40 | NUR ---
APPARENTLY MODERATE ANXIOUS, ATIVAN 0.5MG IVAS ORDERED PRN GIVEN, HEALTH TEACHING PROVIDED
[2020-09-28] MEDS: LORazepam 2 MG/ML VIAL IVP PRN (13:41)
--- NOTE | 2020-09-28 15:11 | NUR ---
REFUSED TO TAKE LUNCH, ENSURE OFFERED AND ABLE TO DRINK 1/2 BOTTLE
[2020-09-28] MEDS ORDERED: MAG SULF 2000 MG/WATER PREMIX 50 ML IV ONE (15:40)
[2020-09-28 16:00] VITALS: BP 114/78
--- NOTE | 2020-09-28 16:04 | NUR ---
DR. CORONA CONTACTED THRU TEXT TO CLARIFY HIS ORDER FOR MAGNESIUM 200OMG IVPB, MAGNESIUM LEVEL-2.6, AWAITING REPLY
--- NOTE | 2020-09-28 16:14 | NUR ---
DR CORONA CONTACTED AND SPOKE TO HIM, ACCORDING TO HIM CANCEL THE MAGNESIUM 2000MG IV.
--- NOTE | 2020-09-28 17:27 | NUR ---
ASSISTED ON HIGH BACK REST POSITION, BREATHING EXERCISE INSTRUCTED, STILL NEEDS REINFORCEMENT AND KEPT COMFORTABLE TO BED
--- NOTE | 2020-09-28 18:05 | NUR ---
DINNER SERVED, NOT IN DISTRESS NOTED
--- NOTE | 2020-09-28 19:07 | NUR ---
HAD TO DISCONTINUE BREATHING TREATMENT DUE TO INCREASED WORK OF BREATHING, AND DESATURATION. WILL CONTINUE TO MONITOR
--- NOTE | 2020-09-28 19:25 | NUR ---
ENDORSED TO SPRING ASSEMBLER SUPERVISOR IN STABLE CONDITION FOR CONTINUITY OF CARE
--- NOTE | 2020-09-28 19:25 | NUR ---
RECEIVED PT AAOX4 , W/ ON AND OFF MILD LABORED BREATHING - BEEN POSITIVE TO COVID . ON NRM 15LPM - ON HOOK TO O2 SAT. MONITOR . IV SITES INTACT AND PATENT . POOR ORAL INTAKE - AM NURSE REQUESTED ENSURE FOR THE PT . PER AM NURSE HALF BOT. OF ENSURE CONSUMED BY THE PT. HAD SERUM LOW + -ORAL K TAB P.O GIVEN BY AM NURSE .SAFETY MEASURES IN PLACE - CALL LIGHT WITHIN REACH . PLAN OF CARE DISCUSSED AND VERBALIZE UNDERSTANDING . PT'S RELATIVES VIEWING OVER THE WINDOW . FOR CLOSELY WATCH - FULL CODE .
[2020-09-28] MEDS: guaiFENesin DM 200/20 MG-10 ML 10 ML UDC PO PRN (20:08)
--- NOTE | 2020-09-28 23:38 | NUR ---
PT. 'S DAUGHTER TALK TO ME OVER THE PHONE . SHE COMPLAINING HER DAD'S GOWN LOOKS UNCHANGED AND DIRTY , PT. SEEMS NO BED BATH SINCE ADMISSION AND THE BED SHEET IS DIRTY AND SCRAMBLE . SHE REQUESTING A BED BATH FOR HER DAD - WILL TALK THE NICOLASA BUENO TO PROVIDE PROPER HYGIENE AND PROVIDE FRESH CLEAN BED LINENS . Addendum: 09/28/20 at 2348 by Tanika Lockett RN I TALK TO NICOLASA BUENO ABOUT PT'S DAUGHTER COMPLAINS , I ASK TO [facility] TO PROVIDE BED BATH BEFORE THE END OF THE SHIFT AND CHANGE THE LINENS . [facility]LES VERBALIZED UNDERSTANDING AND AGREED THE DIRECTION.
[2020-09-29] MEDS: ALBUTEROL SULFATE/IPRATROPIU 3 ML SOL IH SCH ×4 (01:00→19:10)
--- NOTE | 2020-09-29 01:34 | NUR ---
[employer] giving bedbath and changing the bed linens . Addendum: 09/29/20 at 0136 by Tanika Lockett RN per pt's relative they not allow us to close the blind while giving the bedbath - they said it is ok for them , pt. informed about this and pt. agreed .
--- NOTE | 2020-09-29 02:00 | NUR ---
BP 140 / 100 - JUST FINISHED SELF SUCTION BY THE PT . AZ 82 , RR 26 - W/ MILD LABORED BREATHING . SECURE THE O2 PROBE . PT'S RELATIVES VIEWING OVER THE WINDOW . WILL CONT. TO MONITOR . COUGH MEDICINE GIVEN . Addendum: 09/29/20 at 0224 by Tanika Lockett RN O2 SAT 92 .%
[2020-09-29 04:00] VITALS: BP 125/76
--- NOTE | 2020-09-29 04:00 | NUR ---
O2 SAT 94% , SLEEPY . RE CHECK BP 133/76 - CALL LOIGHT WITHIN REACH . WILL CONT. TO MONITOR . PT'S RELATIVE VIEWING OVER THE WINDOW .
[2020-09-29] MEDS: guaiFENesin DM 200/20 MG-10 ML 10 ML UDC PO PRN (05:12)
--- NOTE | 2020-09-29 05:17 | NUR ---
AWAKE , O2 SAT 93 % TO 94 % , CALL LIGHT WITHIN REACH.
--- NOTE | 2020-09-29 05:59 | NUR ---
PER DAUGHTER - WHO ARE WATCHING OVER THE WINDOW - THE PATIENT VOIDED ONCE / PER URINAL .
[2020-09-29] MEDS: DOCUSATE SODIUM 100 MG GELCAP PO PRN (06:28)
[2020-09-29 07:20] LABS: BASOPHILS % (AUTO) 0.2 % (0.0-2.0); EOSINOPHILS # (AUTO) 0.2 K/uL (0-0.4); EOSINOPHILS % (AUTO) 1.6 % (0.0-4.0); HEMATOCRIT 38.2 % (36-52); HEMOGLOBIN 12.5 g/dL (12.0-18.0); LYMPHOCYTES % (AUTO) 6.4 % (20.5-51.1); MEAN CORPUSCULAR HEMOGLOBIN 31 pg (27-31); MEAN CORPUSCULAR HGB CONC 33 g/dL (33-37); MEAN CORPUSCULAR VOLUME 93.7 fL (80-94); MONOCYTES # (AUTO) 0.6 K/uL (0.8-1.0); MONOCYTES % (AUTO) 4.1 % (1.7-9.3); NEUTROPHILS # (AUTO) 13.2 K/uL (1.8-7.7); NEUTROPHILS % (AUTO) 87.7 % (42.2-75.2); PLATELET COUNT (AUTO) 210 K/uL (140-450); RED BLOOD CELL COUNT(AUTO) 4.08 MIL/uL (4.20-6.10); RED CELL DISTRIBUTION WIDTH 16.2 % (11.6-13.7); WHITE BLOOD COUNT (AUTO) 15.1 K/uL (4.8-10.8)
--- NOTE | 2020-09-29 07:30 | NUR ---
RECEIVED PATIENT FROM NIGHT NURSE. PATIENT IN BED AWAKE AND ALERT. RESP EVEN ON 15L NRB, O2SAT 97%. NO NOTED ACUTE S/S DISTRESS. LAC 18 SL, LFA 20G SL. DROPLET PRECAUTION OBSERVED. SAFETY MEASURES IN PLACE. CALL LIGHT WITHIN REACH. WILL CONTINUE TO MONITOR.
--- NOTE | 2020-09-29 07:40 | NUR ---
ENDORSED - PT - STABLE - ENDORSED PT'S RELATIVE SUGGESTING RPT. CXR .
[2020-09-29 07:41] LABS: ANION GAP 11.8 (8-16); CARBON DIOXIDE 33.8 mmol/L (21-32); CREATININE 0.5 mg/dL (0.6-1.3); POTASSIUM 3.6 mmol/L (3.5-5.1)
[2020-09-29] MEDS: ENOXAPARIN 40 MG/0.4 ML SYR SUBQ SCH (08:31)
[2020-09-29] MEDS: methylPREDNISolone SS 40 MG/ML VIAL IVP SCH (08:31)
--- NOTE | 2020-09-29 08:35 | NUR ---
PATIENT IN BED AWAKE AND ALERT. RESP EVEN AND UNLABORED ON 15L NONREBREATHER. NO NOTED ACUTE S/S DISTRESS. MORNING ROUTINE MEDICATIONS GIVEN. PATIENT TOLERATED WELL. FAMILY AT WINDOW. PLAN OF CARE DISCUSSED, PATIENT VERBALIZED UNDERSTANDING. PATIENT ABLE TO MAKE NEEDS KNOWN. CALL LIGHT WITHIN REACH. WILL CONTINUE TO MONITOR.
--- NOTE | 2020-09-29 11:05 | NUR ---
PATIENT IN BED AWAKE AND ALERT TALKING TO HIS FAMILY. NO NOTED ACUTE S/S DISTRESS AT THIS TIME. CALL LIGHT WITHIN REACH. WILL CONTINUE TO MONITOR.
[2020-09-29] MEDS ORDERED: LORazepam 2 MG/ML VIAL IVP PRN (12:50)
--- NOTE | 2020-09-29 14:11 | NUR ---
PATIENT NOW ON 15L OXIMIZER, O2SAT 90% AND MAINTAINING. PATIENT NOTED BREATHING WITH MILD LABORED BUT ABLE TO MAINTAINED O2SAT AT 90%. CALL LIGHT WITHIN REACH. WILL CONTINUE TO MONITOR.
[2020-09-29 16:00] VITALS: BP 142/97
--- NOTE | 2020-09-29 16:04 | NUR ---
09/29/20 RD FOLLOW UP COMPLETED PLEASE REFER TO NUTRITION ASSESSMENT UNDER CARE ACTIVITY FOR ESTIMATED NUTRITIONAL NEEDS. 1. CONTINUE MECHANICAL SOFT DIET REGULAR DIET TOLERATED 2. ENSURE TID FOR ADDITIONAL KCALS/PRO 3. RD TO FOLLOW-UP 3-5 DAYS, MODERATE RISK MARLENE JONES, YOLANDA
--- NOTE | 2020-09-29 17:55 | NUR ---
PATIENT IN BED AWAKE AND ALERT. RESP EVEN WITH MILD LABORED ON 15L OXIMIZER, O2SAT 95%. NO ACUTE S/S DISTRESS AT THIS TIME. CALL LIGHT WITHIN REACH. WILL CONTINUE TO MONITOR.
--- NOTE | 2020-09-29 19:25 | NUR ---
ENDORSED PATIENT TO NIGHT NURSE. PATIENT IN STABLE CONDITION.
--- NOTE | 2020-09-29 19:30 | NUR ---
RECEIVED REPORT FROM CHRISTIANNE COWAN. PT AOX4 ON 15L OXIMIZER. NO S/S RESPIRATORY DISTRESS. IV SITE LAC 18G, LFA 20G PATENT AND INTACT, S.L. SAFETY MEASURES IN PLACE. CALL LIGHT WITHIN REACH. WILL CONTINUE TO MONITOR
[2020-09-29 20:00] VITALS: BP 129/89
--- NOTE | 2020-09-29 21:35 | NUR ---
PT ASLEEP IN BED. RESPIRATIONS EVEN AND UNLABORED. OXIMIZER IN PLACE. WILL CONTINUE TO MONITOR
[2020-09-30] MEDS: ALBUTEROL SULFATE/IPRATROPIU 3 ML SOL IH SCH ×4 (00:30→20:07)
[2020-09-30] MEDS: guaiFENesin DM 200/20 MG-10 ML 10 ML UDC PO PRN ×3 (03:41→22:04)
--- NOTE | 2020-09-30 03:48 | NUR ---
PRN ROBITUSSIN GIVEN FOR PT C/O COUGH, TOLERATED WELL. WILL CONTINUE TO MONITOR
[2020-09-30 04:00] VITALS: BP 129/80
--- NOTE | 2020-09-30 04:20 | NUR ---
CALLED TO BEDSIDE PT DESAT TO LOW 80s PT WAS LAYING FLAT IN BED AND WAS PLACED IN SEMI FOWLERS PT SPO2 SLOWLY RISING TO 90% AND CLIMBING
--- NOTE | 2020-09-30 05:30 | NUR ---
PT AWAKE IN BED, STATES HE'S COMFORTABLE, O2 SAT 96%, NO DISTRESS NOTED. DENIES SOB DENIES PAIN. WILL CONTINUE TO MONITOR
--- NOTE | 2020-09-30 07:30 | NUR ---
ENDORSED PT TO DAY RN FOR CONTINUITY OF CARE. PT IS IN STABLE CONDITION
[2020-09-30 08:00] VITALS: BP 129/90
[2020-09-30] MEDS: methylPREDNISolone SS 40 MG/ML VIAL IVP SCH (08:53)
[2020-09-30] MEDS: ENOXAPARIN 40 MG/0.4 ML SYR SUBQ SCH (08:54)
--- NOTE | 2020-09-30 08:58 | NUR ---
SCHEDULED MEDICATIONS GIVEN, EDUCATION PROVIDED. PATIENT TOLERATED WELL. PATIENT SEEMS ANXIOUS AND O2 SAT 88% WITH 15L OXIMIZER. RT BEEN CALLED. PER CONRAD. KEEP O2 SAT >88% IS FINE. ENCOURAGED PATIENT TO TAKE DEEP BREATH AND RELAX. WILL CONTINUE TO MONITOR.
--- NOTE | 2020-09-30 12:55 | NUR ---
PATIENT RESTING IN BED WITH NO ACUTE DISTRESS NOTED. PATIENT STATED THAT HE IS WAITING FOR THE BREATHING TREATMENT AT 1300. SAFETY MEASURES IN PLACE, WILL CONTINUE TO MONITOR.
--- NOTE | 2020-09-30 15:10 | NUR ---
GUAIFENESIN GIVEN FOR COUGH PER PATIENT REQUEST. PATIENT'S O2 SAT 98% WITH 15L OXIMIZER, DECREASED TO 12L. O2 SAT 95%, WILL CONTINUE TO MONITOR.
--- NOTE | 2020-09-30 15:32 | NUR ---
RECHECKED PATIENT. O2 SAT 89% WITH 12L OXIMIZER. INCREASED TO 13L, O2 SAT 92%, INFORMED PATIENT TO TAKE DEEP BREATH AND RELAX, SAFETY MEASURES IN PLACE, WILL CONTINUE TO MONITOR.
--- NOTE | 2020-09-30 17:25 | NUR ---
IV AT LEFT AC SITE BLEEDING, REMOVED IV AND COVERED WITH GAUZE. PATIENT'S O2 SAT 95% WITH 13L NRB. NO ACUTE DISTRESS NOTED, [facility] OUTSIDE OF THE HOSPITAL. WILL CONTINUE TO MONITOR. Addendum: 10/01/20 at 0734 by Michael Slaughter RN OXIMIZER, NOT NRB
--- NOTE | 2020-09-30 19:32 | NUR ---
ENDORSED PATIENT TO APPLE PICKING SUPERVISOR RN FOR CONTINUITY OF CARE. PATIENT IN STABLE CONDITION WITH 13L OXIMIZER.
--- NOTE | 2020-09-30 19:33 | NUR ---
RECEIVED REPORT FROM CHRISTIANNE RNISAK. PT AOX4 ON 13L OXIMIZER, O2 SAT 92%, NO S/S RESPIRATORY DISTRESS NOTED. NO C/O PAIN AT THIS TIME. IV SITE LFA 20G PATENT INTACT, S.L. SAFETY MEASURES IN PLACE. CALL LIGHT WITHIN REACH. WILL CONTINUE TO MONITOR
[2020-09-30 20:00] VITALS: BP 132/95
[2020-09-30] MEDS: PIPERACILLIN/TAZOBACTAM 3.375 GM in DEXTROSE 5% 50 ML IV SCH (21:53)
--- NOTE | 2020-09-30 22:05 | NUR ---
ADMINISTERED SCHEDULED MEDS, PRN ROBITUSSIN GIVEN FOR PT C/O COUGH, TOLERATED WELL. WILL CONTINUE TO MONITOR
--- NOTE | 2020-10-01 00:05 | NUR ---
PT AWAKE RESTING IN BED, O2 SAT 96%, OXIMIZER IN PLACE, RESPIRATIONS EVEN AND UNLABORED. WILL CONTINUE TO MONITOR
[2020-10-01 04:00] VITALS: BP 124/87
[2020-10-01] MEDS: PIPERACILLIN/TAZOBACTAM 3.375 GM in DEXTROSE 5% 50 ML IV SCH ×3 (04:05→21:15)
--- NOTE | 2020-10-01 05:38 | NUR ---
PT ASLEEP IN BED, O2 SAT 95%, NRB IN PLACE, NO S/S ACUTE DISTRESS NOTED. WILL CONTINUE TO MONITOR Addendum: 10/01/20 at 0648 by Linda Rogers RN OXIMIZER IN PLACE
--- NOTE | 2020-10-01 06:48 | NUR ---
OXIMIZER IN PLACE, O2 SAT 96%, PT AWAKE IN BED, DENIES SOB, DENIES PAIN, NO DISTRESS NOTED. WILL CONTINUE TO MONITOR
--- NOTE | 2020-10-01 07:21 | NUR ---
PT AWAKE RESTING IN BED COMFORTABLY, O2 SAT 96%, NO S/S ACUTE DISTRESS NOTED. WILL ENDORSE TO DAY RN FOR CONTINUITY OF CARE. PT IS IN STABLE CONDITION
--- NOTE | 2020-10-01 07:30 | NUR ---
RECEIVED BEDSIDE REPORT FROM SHIPWRIGHT HELPER RN FOR CONTINUITY OF CARE. PATIENT RESTING IN BED IN SUPINE POSITION, AWAKE, ABLE TO MAKE NEEDS KNOWN. O2 SAT 96% IN 15L OXIMIZER. TURN DOWN TO 13L. TOLERATED WELL. IV SITE LEFT FOREARM 22G SALINE LOCK. SKIN WARM AND DRY. PLAN OF CARE DISCUSSED. SAFETY MEASURES IN PLACE, WILL CONTINUE TO MONITOR.
[2020-10-01] MEDS: ALBUTEROL SULFATE/IPRATROPIU 3 ML SOL IH SCH ×3 (07:51→20:42)
[2020-10-01] MEDS: ENOXAPARIN 40 MG/0.4 ML SYR SUBQ SCH (08:44)
[2020-10-01] MEDS: methylPREDNISolone SS 40 MG/ML VIAL IVP SCH (08:44)
--- NOTE | 2020-10-01 08:55 | NUR ---
SCHEDULED MORNING MEDICATION GIVEN. PATIENT ON 15L NRB, NOT OXIMIZER. O2 SAT 99%. TURNED O2 TO 12L. O2 SAT 98%. ENCOURAGED PATIENT TO TAKE DEEP BREATH. SAFETY MEASURES IN PLACE, WILL CONTINUE TO MONITOR.
[2020-10-01 09:29] LABS: MAGNESIUM 2.5 mg/dL (1.8-2.4)
[2020-10-01 09:31] LABS: ANION GAP 8.2 (8-16); CARBON DIOXIDE 36.4 mmol/L (21-32); CREATININE 0.6 mg/dL (0.6-1.3); POTASSIUM 5.6 mmol/L (3.5-5.1)
[2020-10-01 09:33] LABS: BASOPHILS % (AUTO) 0.3 % (0.0-2.0); EOSINOPHILS # (AUTO) 0.2 K/uL (0-0.4); EOSINOPHILS % (AUTO) 2.2 % (0.0-4.0); HEMATOCRIT 36.9 % (36-52); HEMOGLOBIN 12.1 g/dL (12.0-18.0); LYMPHOCYTES # (AUTO) 0.9 K/uL (2.0-11.5); LYMPHOCYTES % (AUTO) 10.3 % (20.5-51.1); MEAN CORPUSCULAR HEMOGLOBIN 31 pg (27-31); MEAN CORPUSCULAR HGB CONC 33 g/dL (33-37); MEAN CORPUSCULAR VOLUME 94.5 fL (80-94); MONOCYTES # (AUTO) 0.5 K/uL (0.8-1.0); MONOCYTES % (AUTO) 6.1 % (1.7-9.3); NEUTROPHILS # (AUTO) 7.2 K/uL (1.8-7.7); NEUTROPHILS % (AUTO) 81.1 % (42.2-75.2); PLATELET COUNT (AUTO) 212 K/uL (140-450); RED CELL DISTRIBUTION WIDTH 16.3 % (11.6-13.7); WHITE BLOOD COUNT (AUTO) 8.8 K/uL (4.8-10.8)
[2020-10-01] MEDS ORDERED: SODIUM ZIRCONIUM CYCLOSILICATE 10 GM POWD.PACK PO SCH (12:00)
--- NOTE | 2020-10-01 12:58 | NUR ---
IV ZOSYN GIVEN VIA IVPB. LOKELMA GIVEN FOR K+ 5.6. EDUCATION PROVIDED. DECREASED O2 TO 8L NRB. O2 SAT 97%. SAFETY MEASURES IN PLACE. NO ACUTE DISTRESS NOTED. WILL CONTINUE TO MONITOR.
--- NOTE | 2020-10-01 13:51 | NUR ---
SPOKE TO PATIENT AND AT LENGTH WITH ACKNOWLEDGEMENT WITH EXTENDED USAGE OF HIGH FLOW PERCENTAGE (100%) OF OXYGEN THEREFORE CAUSING OXYGEN TOXICITY AND NTIROGEN WASHOUT ALSO THE IMPORTANCE OF OXYGEN TITRATION CURRENTLY ON A NON REBREATHER AT 15 LPM SATURATING 97% CHANGED OXYGEN DEVICE TO A SIMPLE ADULT MASK AT 14 LPM SATURATION CONSTANT AT 95% DECREASED TO 13 LPM AT 1355 SATURATION CONSTANT AT 90%-91% PATIENT STATED "THAT ANXIETY PANIC ATTACKS IS ONE OF HIS PROBLEMS" CALL LIGHT WITHIN REACH [facility] TO MONITOR
--- NOTE | 2020-10-01 15:08 | NUR ---
LOC AWAKE AND ALERT VERBALLY RESPONSIVE TO FLOOR INSPECTOR RESTING COMFORTABLY GOOD CHEST RISE AND AERATION THROUGHOUT BILATERAL LUNG MORALES AIRWAY PATENT SATURATION 95% ON SUPPLEMENTAL OXYGEN AT 13 LPM VIA ADULT SIMPLE MASK TITRATED FIO2 TO 12 LPM FLOOR INSPECTOR TO MONITOR
--- NOTE | 2020-10-01 15:13 | NUR ---
MADE ROUNDS, PATIENT IS ON 12L VIA NRB. O2 SAT 92%. NO ACUTE DISTRESS NOTED. SAFETY MEASURES IN PLACE, WILL CONTINUE TO MONITOR. Addendum: 10/01/20 at 1514 by Michael Slaughter RN 13L NRB, NOT 12L Addendum: 10/01/20 at 1646 by Michael Slaughter RN SIMPLE MASK. NOT NRB.
[2020-10-01 16:00] VITALS: BP 125/85
--- NOTE | 2020-10-01 16:46 | NUR ---
PATIENT RESTING IN BED WITH 13L SIMPLE MASK. O2 SAT 95%, NO ACUTE DISTRESS NOTED. SAFETY MEASURES IN PLACE, WILL CONTINUE TO MONITOR.
--- NOTE | 2020-10-01 19:25 | NUR ---
ENDORSED PATIENT TO DECORATING EQUIPMENT SETTER RN FOR CONTINUITY OF CARE. PATIENT IN STABLE CONDITION WITH 12L SIMPLE MASK.
--- NOTE | 2020-10-01 19:26 | NUR ---
RECEIVED REPORT FROM DAY SHIFT NURSE. PT IN BED RESTING. PT AAOX4, ABLE TO MAKE NEEDS KNOWN. PT CURRENTLY ON SIMPLE MASK 12LPM. PT NOT IN DISTRESS. ABDOMEN IS SOFT AND NON-TENDER, ACTIVE BOWEL SOUNDS NOTES. SKIN IS WARM, DRY, AND INTACT. PT WITH IV ACCESS ON LEFT FOREARM G22 PATENT AND INTACT, SALINE LOCKED. PT DENIES ANY PAIN OR DISCOMFORT AT THIS TIME, NO REQUESTS MADE. SAFETY MEASURES IN PLACE, CALL LIGHT WITHIN REACH. WILL CONTINUE TO MONITOR.
[2020-10-01 20:00] VITALS: BP 127/88
--- NOTE | 2020-10-01 21:15 | NUR ---
PT EATING, CURRENTLY ON OXIMIZER 15LPM. PT TOLERATING WELL. SCHEDULED MEDS GIVEN. PT NOT IN DISTRESS. CALL LIGHT WITHIN REACH. WILL CONTINUE TO MONITOR. Addendum: 10/02/20 at 0132 by Calros Ruiz RN PT PLACED BACK TO NON-REBREATHER MASK 15LPM AFTER EATING.
[2020-10-01] MEDS: guaiFENesin DM 200/20 MG-10 ML 10 ML UDC PO PRN (23:48)
--- NOTE | 2020-10-01 23:48 | NUR ---
PT COUGHING A LOT. NO SECRETIONS NOTED. PRN COUGH MEDICINE GIVEN ORDERED. O2 IN PLACE. CURRENT O2 SAT 98%. WILL CONTINUE TO MONITOR.
[2020-10-02] MEDS: ALBUTEROL SULFATE/IPRATROPIU 3 ML SOL IH SCH ×4 (01:26→21:38)
--- NOTE | 2020-10-02 02:18 | NUR ---
PT ASLEEP. NON-REBREATHER MASK IN PLACE. PT NOT IN DISTRESS. VISIBLE CHEST RISE AND FALL NOTED. PT KEPT COMFORTABLE. SAFETY MEASURES IN PLACE. CALL LIGHT WITHIN REACH. WILL CONTINUE TO MONITOR.
[2020-10-02 04:00] VITALS: BP 134/83
--- NOTE | 2020-10-02 04:27 | NUR ---
VS STABLE. PT IN BED RESTING. O2 15LPM/NRB IN PLACE. PT NOT IN DISTRESS. CURRENT O2 SAT 98%. O2 TITRATED DOWN TO 12LPM/NRB. WILL CONTINUE TO MONITOR.
[2020-10-02] MEDS: PIPERACILLIN/TAZOBACTAM 3.375 GM in DEXTROSE 5% 50 ML IV SCH ×3 (05:04→20:39)
--- NOTE | 2020-10-02 07:37 | NUR ---
endorsed to day shift nurse for continuity of care
--- NOTE | 2020-10-02 07:40 | NUR ---
RECEIVED REPORT FROM NIGHT NURSE PATIENT IS AAOX4, ON 12LPM NON REBREATHER MASK SATURATION AT 93%, COMPLETED COVID PROTOCOL, SKIN INTACT INTACT IV ON LEFT FOREARM, SAFETY MEASURES IN PLACE AND CALL LIGHT WITHIN REACH. WILL CONTINUE TO MONITOR.
[2020-10-02 08:40] LABS: BASOPHILS % (AUTO) 0.3 % (0.0-2.0); EOSINOPHILS # (AUTO) 0.2 K/uL (0-0.4); EOSINOPHILS % (AUTO) 2.2 % (0.0-4.0); HEMATOCRIT 36.9 % (36-52); HEMOGLOBIN 12.1 g/dL (12.0-18.0); LYMPHOCYTES % (AUTO) 11.4 % (20.5-51.1); MEAN CORPUSCULAR HEMOGLOBIN 31 pg (27-31); MEAN CORPUSCULAR HGB CONC 33 g/dL (33-37); MEAN CORPUSCULAR VOLUME 94.5 fL (80-94); MONOCYTES # (AUTO) 0.5 K/uL (0.8-1.0); MONOCYTES % (AUTO) 6.1 % (1.7-9.3); NEUTROPHILS # (AUTO) 6.9 K/uL (1.8-7.7); PLATELET COUNT (AUTO) 244 K/uL (140-450); RED CELL DISTRIBUTION WIDTH 16.4 % (11.6-13.7); WHITE BLOOD COUNT (AUTO) 8.7 K/uL (4.8-10.8)
[2020-10-02 08:47] LABS: ANION GAP 6.7 (8-16); CARBON DIOXIDE 38.3 mmol/L (21-32); CREATININE 0.6 mg/dL (0.6-1.3)
[2020-10-02 09:05] LABS: MAGNESIUM 3.5 mg/dL (1.8-2.4); PHOSPHORUS 4.4 mg/dL (2.5-4.9)
--- NOTE | 2020-10-02 09:30 | NUR ---
MEDICATION DUE GIVEN PT IS STABLE NO DISTRESS NOTED AND NO LABORED BREATHING SATURATION AT 98%.
[2020-10-02] MEDS: methylPREDNISolone SS 40 MG/ML VIAL IVP SCH (09:39)
[2020-10-02] MEDS: ENOXAPARIN 40 MG/0.4 ML SYR SUBQ SCH (09:40)
--- NOTE | 2020-10-02 13:00 | NUR ---
MEDICATION DUE GIVEN AND INFUSING WELL
--- NOTE | 2020-10-02 14:32 | NUR ---
LOC AWAKE AND ALERT VERBALLY RESPONSIVE TO BOILER COVERER GOOD CHEST RISE POST HHN THERAPY CHANGED OXYGEN DEVICE TO ADULT SIMPLE MASK AT 13 LPM BOILER COVERER TO MONITOR
--- NOTE | 2020-10-02 14:46 | NUR ---
STABLE TOLERATING SUPPLEMENTAL OXYGEN AT 13 LPM VIA ADULT SIMPLE MASK SATURATION 93%
--- NOTE | 2020-10-02 15:17 | NUR ---
PATIENT CHANGE FROM 12 NON REBREATHER MASK TO 13LPM VIA ADULT SIMPLE MASK SATURATION AT 93%.
[2020-10-02 16:00] VITALS: BP 113/69
--- NOTE | 2020-10-02 19:19 | NUR ---
ENDORSED TO NIGHT NURSE FOR CONTINUITY OF CARE. PT IS STABLE
[2020-10-02 20:00] VITALS: BP 126/79
--- NOTE | 2020-10-02 20:39 | NUR ---
VS STABLE. SCHEDULED MEDS GIVEN ORDERED. PT FEELING ANXIOUS AND WANTS TO SWITCH FROM SIMPLE MASK TO NON-REBREATHER MASK. CURRENT O2 SAT 92%. CALL LIGHT WITHIN REACH. WILL CONTINUE TO MONITOR.
--- NOTE | 2020-10-02 22:02 | NUR ---
ROUNDS MADE, PT IN BED SLEEPING WITH HOB ELEVATED. NRB MASK IN PLACE. PT NOT IN DISTRESS. NO S/SX OF PAIN OR DISCOMFORT NOTED. SAFETY MEASURES IN PLACE. CALL LIGHT WITHIN REACH. WILL CONTINUE TO MONITOR.
--- NOTE | 2020-10-02 23:00 | NUR ---
ENDORSED TO AMITA SCHAEFER FOR CONTINUITY OF CARE.
[2020-10-03] MEDS: ALBUTEROL SULFATE/IPRATROPIU 3 ML SOL IH SCH ×4 (01:00→19:00)
--- NOTE | 2020-10-03 01:00 | NUR ---
PATIENT IS ASLEEP. NO S/S ACUTE DISTRESS. CALL LIGHT WITHIN REACH.
--- NOTE | 2020-10-03 03:00 | NUR ---
MADE ROUNDS. PATIENT IS ASLEEP. NO S/S ACUTE DISTRESS. CALL LIGHT WITHIN REACH.
[2020-10-03] MEDS: PIPERACILLIN/TAZOBACTAM 3.375 GM in DEXTROSE 5% 50 ML IV SCH ×3 (04:22→21:14)
--- NOTE | 2020-10-03 05:00 | NUR ---
DUE MEDS GIVEN. PATIENT RESTING COMFORTABLY IN BED. NO S/S ACUTE DISTRESS. CALL LIGHT WITHIN REACH.
--- NOTE | 2020-10-03 07:30 | NUR ---
ENDORSED TO AM SHIFT NURSE FOR CONTINUITY OF CARE.
--- NOTE | 2020-10-03 07:32 | NUR ---
RECEIVED REPORT FROM CONTINUOUS PROCESS ROTARY DRUM TANNER NURSE. PT IN BED RESTING. PT AAOX4 PT CURRENTLY ON SIMPLE MASK 12LPM SATING AT 96% PT NOT IN DISTRESS. SKIN IS WARM, DRY, AND INTACT. PT WITH IV ACCESS ON LEFT FOREARM G22 PATENT AND INTACT, SALINE LOCKED. PLAN OF CARE WAS DISCUSSED. SAFETY MEASURES IN PLACE, CALL LIGHT WITHIN REACH. WILL CONTINUE TO MONITOR.
[2020-10-03 08:00] VITALS: BP 129/82
--- NOTE | 2020-10-03 08:31 | NUR ---
RECEIVED ON SUPPLEMENTAL OXYGEN AT 15 LPM VIA NON REBREATHER SATURATION 100% POST HHN THERAPY CHANGED OXYGEN DEVICE TO AN ADULT SIMPLE MASK AT 10 LPM SATURATION AT 100% DRAFTER TO MONITOR AND TITRATE FIO2
[2020-10-03 08:45] LABS: BASOPHILS % (AUTO) 0.3 % (0.0-2.0); EOSINOPHILS # (AUTO) 0.2 K/uL (0-0.4); EOSINOPHILS % (AUTO) 2.1 % (0.0-4.0); HEMATOCRIT 36.9 % (36-52); HEMOGLOBIN 12.1 g/dL (12.0-18.0); MEAN CORPUSCULAR HEMOGLOBIN 31 pg (27-31); MEAN CORPUSCULAR HGB CONC 33 g/dL (33-37); MEAN CORPUSCULAR VOLUME 95.4 fL (80-94); MONOCYTES # (AUTO) 0.6 K/uL (0.8-1.0); MONOCYTES % (AUTO) 6.5 % (1.7-9.3); NEUTROPHILS % (AUTO) 80.1 % (42.2-75.2); PLATELET COUNT (AUTO) 249 K/uL (140-450); RED BLOOD CELL COUNT(AUTO) 3.87 MIL/uL (4.20-6.10); RED CELL DISTRIBUTION WIDTH 16.4 % (11.6-13.7); WHITE BLOOD COUNT (AUTO) 8.8 K/uL (4.8-10.8)
[2020-10-03 09:17] LABS: ANION GAP 8.4 (8-16); CARBON DIOXIDE 36.4 mmol/L (21-32); CREATININE 0.6 mg/dL (0.6-1.3)
[2020-10-03] MEDS: ENOXAPARIN 40 MG/0.4 ML SYR SUBQ SCH (09:28)
--- NOTE | 2020-10-03 09:30 | NUR ---
ALL SCHEDULED MEDS GIVEN. PATIENT IS STABLE. NO SIGNS OF RESPIRATORY DISTRESS NOTED. WILL CONTINUE TO MONITOR.
[2020-10-03 09:54] LABS: MAGNESIUM 2.4 mg/dL (1.8-2.4)
--- NOTE | 2020-10-03 10:30 | NUR ---
TITRATED PATIENT TO 13 L FROM 12 L O2. NOW SATING AT 96%. WILL CONTINUE TO MONITOR.
[2020-10-03 10:36] LABS: POTASSIUM 5.8 mmol/L (3.5-5.1)
--- NOTE | 2020-10-03 10:49 | NUR ---
PATIENT O2 SATURATION WAS DESATING TO 45%. WAS ON 13 L OXYGEN TITRATED TO 15 OXYGEN. O2 SATURATION NOW AT 96%
[2020-10-03] MEDS ORDERED: SODIUM ZIRCONIUM CYCLOSILICATE 10 GM POWD.PACK PO SCH (11:00)
--- NOTE | 2020-10-03 11:00 | NUR ---
PAGED BINDU EDGE REGARDING K-5.8, WITH ORDER AND NOTIFIED DR. JULIÁN CORONA. WILL CONTINUE TO MONITOR.
[2020-10-03] MEDS ORDERED: DOCUSATE SODIUM 100 MG GELCAP PO SCH (11:30)
--- NOTE | 2020-10-03 14:17 | NUR ---
RT TITRATED PATIENT BACK TO 12 L FROM 13 L. O2 SATURATION IS AT 96%. WILL CONTINUE TO MONITOR.
--- NOTE | 2020-10-03 15:57 | NUR ---
SUPPLEMENTAL OXYGEN AT 12 LPM POST HHN THERAPY TITRATED FIO2 TO 10 LPM
[2020-10-03 16:00] VITALS: BP 110/72
--- NOTE | 2020-10-03 16:01 | NUR ---
SATURATION 97% ON SUPPLEMENTAL OXYGEN AT 10 LPM VIA ADULT SIMPLE MASK TITRATED FIO2 TO 9 LPM DIESEL SERVICE APPRENTICE TO MONITOR
[2020-10-03] MEDS: guaiFENesin DM 200/20 MG-10 ML 10 ML UDC PO PRN (17:32)
--- NOTE | 2020-10-03 17:38 | NUR ---
PT COMPLAINING OF COUGH. ADMINISTERED ROBITUSSIN PO PER MD ORDERED. PT IS STABLE. WILL CONTINUE TO MONITOR.
--- NOTE | 2020-10-03 19:23 | NUR ---
ENDORSED TO TECHNICAL SUPPORT ASSISTANT NURSE FOR CONTINUITY OF CARE.
--- NOTE | 2020-10-03 19:45 | NUR ---
REPORT RECEIVED OF STABLE PT.HE IS ON THE BED.RESP.UNLABORED W/O2 AT 9L/MASK.NO C/O PAIN AND/OR SOB NOW.SL PATENT.CALL LIGHT WITHIN REACH.HITESH CONT.MONITORING.
[2020-10-03] MEDS: busPIRone 5 MG TAB PO SCH (21:15)
--- NOTE | 2020-10-03 23:22 | NUR ---
PT'S DAUGHTER CALLED AND ASKED ABOUT PT'S CONDITION.TOLD HER THAT PT IS STABLE.
[2020-10-04] MEDS: ALBUTEROL SULFATE/IPRATROPIU 3 ML SOL IH SCH ×4 (01:00→19:34)
[2020-10-04 04:00] VITALS: BP 128/77
[2020-10-04] MEDS: PIPERACILLIN/TAZOBACTAM 3.375 GM in DEXTROSE 5% 50 ML IV SCH ×3 (05:09→22:09)
--- NOTE | 2020-10-04 07:13 | NUR ---
SLEPT WELL.NO DISTRESS NOTED WHOLE NIGHT. SL PATENT.CALL LIGHT IN REACH.
[2020-10-04 08:00] VITALS: BP 128/77
[2020-10-04] MEDS: ENOXAPARIN 40 MG/0.4 ML SYR SUBQ SCH (09:00)
[2020-10-04] MEDS ORDERED: DOCUSATE SODIUM 100 MG GELCAP PO SCH (09:00)
[2020-10-04] MEDS: busPIRone 5 MG TAB PO SCH ×2 (09:00→22:10)
[2020-10-04 10:06] LABS: BASOPHILS # (AUTO) 0.1 K/uL (0.00-0.22); BASOPHILS % (AUTO) 0.6 % (0.0-2.0); EOSINOPHILS # (AUTO) 0.2 K/uL (0-0.4); HEMATOCRIT 34.5 % (36-52); HEMOGLOBIN 11.4 g/dL (12.0-18.0); LYMPHOCYTES # (AUTO) 0.7 K/uL (2.0-11.5); LYMPHOCYTES % (AUTO) 7.7 % (20.5-51.1); MEAN CORPUSCULAR HEMOGLOBIN 31 pg (27-31); MEAN CORPUSCULAR HGB CONC 33 g/dL (33-37); MEAN CORPUSCULAR VOLUME 94.4 fL (80-94); MONOCYTES # (AUTO) 0.4 K/uL (0.8-1.0); MONOCYTES % (AUTO) 5.1 % (1.7-9.3); NEUTROPHILS # (AUTO) 7.4 K/uL (1.8-7.7); NEUTROPHILS % (AUTO) 84.6 % (42.2-75.2); PLATELET COUNT (AUTO) 230 K/uL (140-450); RED BLOOD CELL COUNT(AUTO) 3.65 MIL/uL (4.20-6.10); RED CELL DISTRIBUTION WIDTH 16.1 % (11.6-13.7); WHITE BLOOD COUNT (AUTO) 8.7 K/uL (4.8-10.8)
[2020-10-04 11:01] LABS: ALBUMIN 2.7 g/dL (3.4-5.0); ANION GAP 6.6 (8-16); CARBON DIOXIDE 36.8 mmol/L (21-32); CREATININE 0.6 mg/dL (0.6-1.3); MAGNESIUM 1.8 mg/dL (1.8-2.4); POTASSIUM 3.4 mmol/L (3.5-5.1); TOTAL BILIRUBIN 0.5 mg/dL (0.0-1.0)
--- NOTE | 2020-10-04 13:32 | NUR ---
SCHEDULED MEDICATIONS DUE GIVEN. WILL CONTINUE TO MONITOR.
[2020-10-04 16:00] VITALS: BP 103/76
--- NOTE | 2020-10-04 18:55 | NUR ---
10/04/20 RD FOLLOW UP COMPLETED. PLEASE REFER TO NUTRITION ASSESSMENT UNDER CARE ACTIVITY FOR ESTIMATED NUTRITIONAL NEEDS. 1. CONTINUE MECHANICAL SOFT DIET REGULAR DIET TOLERATED 2. ENSURE BID FOR ADDITIONAL KCALS/PRO 3. RD TO FOLLOW-UP 3-5 DAYS, MODERATE RISK NANCY QUICK, RD
--- NOTE | 2020-10-04 19:19 | NUR ---
GAVE REPORT TO PNEUMATIC JACKETER NURSE FOR CONTINUITY OF CARE. PATIENT IN STABLE CONDITION.
--- NOTE | 2020-10-04 19:20 | NUR ---
AWAKE,ALERT AND ORIENTED.RESP UNLABORED W/O2.LUNGS DIMONISHED.SL PATENT.CALL LIGHT WITHIN REACH.WILL CONT.MONITORING.
[2020-10-04 20:00] VITALS: BP 114/76
[2020-10-04] MEDS: guaiFENesin DM 200/20 MG-10 ML 10 ML UDC PO PRN (23:52)
--- NOTE | 2020-10-05 00:03 | NUR ---
HER DAUGHTER CALLED AND ASKED ABOUT HER DAD'S CONDITION.ANSWERED HER QUESTIONS.SHE VERBALIZED UNDERSTANDINGS.
--- NOTE | 2020-10-05 00:04 | NUR ---
HAD C/O COUGH MED GIVEN.
--- NOTE | 2020-10-05 00:20 | NUR ---
pt's daughter call me via phone she said the o2 sat up and down - i told her i'm in the supplies room - looking for new o2 sat probe - to change the new probe and i 'm about to visit the pt. Addendum: 10/06/20 at 0700 by Tanika Lockett RN the above nurses note is date error enrty instead of 10/06 . - grecia
[2020-10-05] MEDS: ALBUTEROL SULFATE/IPRATROPIU 3 ML SOL IH SCH ×3 (00:24→19:00)
[2020-10-05 04:00] VITALS: BP 114/76
[2020-10-05] MEDS: PIPERACILLIN/TAZOBACTAM 3.375 GM in DEXTROSE 5% 50 ML IV SCH (05:03)
--- NOTE | 2020-10-05 06:51 | NUR ---
SLEPT WELL..NO DISTRESS NOTED AT PRESENT TIME.
--- NOTE | 2020-10-05 07:58 | NUR ---
ASLEEP RESTING COMFORTABLY RECEIVED ON SUPPLEMENTAL OXYGEN AT 10 LPM VIA ADULT SIMPLE MASK TOLERATING WELL WITHOUT INCIDENT POST HHN THERAPY TITRATED FIO2 TO 8 LPM FOREIGN EXCHANGE POSITION CLERK TO MONITOR AND TITRATE TOLERATED
[2020-10-05 08:00] VITALS: BP 111/78
--- NOTE | 2020-10-05 08:11 | NUR ---
SATURATION 95% ON SUPPLEMENTAL OXYGEN AT 8 LPM VIA ADULT SIMPLE MASK TOLERATING WELL WITHOUT ADVERSE REACTIONS NOTED SAMPLE SEWER TO MONITOR AND TITRATED TOLERATED SAMPLE SEWER TO NOTIFY DAY/RN
[2020-10-05 08:33] LABS: BASOPHILS # (AUTO) 0.2 K/uL (0.00-0.22); EOSINOPHILS # (AUTO) 0.2 K/uL (0-0.4); EOSINOPHILS % (AUTO) 1.7 % (0.0-4.0); HEMATOCRIT 32.9 % (36-52); HEMOGLOBIN 10.8 g/dL (12.0-18.0); LYMPHOCYTES # (AUTO) 0.7 K/uL (2.0-11.5); LYMPHOCYTES % (AUTO) 8.1 % (20.5-51.1); MEAN CORPUSCULAR HEMOGLOBIN 31 pg (27-31); MEAN CORPUSCULAR HGB CONC 33 g/dL (33-37); MEAN CORPUSCULAR VOLUME 94.7 fL (80-94); MONOCYTES # (AUTO) 0.3 K/uL (0.8-1.0); MONOCYTES % (AUTO) 3.9 % (1.7-9.3); NEUTROPHILS # (AUTO) 7.3 K/uL (1.8-7.7); NEUTROPHILS % (AUTO) 84.3 % (42.2-75.2); PLATELET COUNT (AUTO) 216 K/uL (140-450); RED BLOOD CELL COUNT(AUTO) 3.48 MIL/uL (4.20-6.10); RED CELL DISTRIBUTION WIDTH 16.1 % (11.6-13.7); WHITE BLOOD COUNT (AUTO) 8.7 K/uL (4.8-10.8)
[2020-10-05 09:32] LABS: ALBUMIN 2.5 g/dL (3.4-5.0); ANION GAP 5.8 (8-16); CARBON DIOXIDE 37.3 mmol/L (21-32); CREATININE 0.5 mg/dL (0.6-1.3); MAGNESIUM 2.4 mg/dL (1.8-2.4); PHOSPHORUS 2.9 mg/dL (2.5-4.9); POTASSIUM 3.1 mmol/L (3.5-5.1); TOTAL BILIRUBIN 0.5 mg/dL (0.0-1.0)
[2020-10-05] MEDS: ENOXAPARIN 40 MG/0.4 ML SYR SUBQ SCH (09:41)
[2020-10-05] MEDS: busPIRone 5 MG TAB PO SCH ×2 (09:42→21:33)
--- NOTE | 2020-10-05 09:49 | NUR ---
SCHEDULED MEDICATIONS GIVEN, EDUCATION PROVIDED. O2 SAT 94% WITH 8L SIMPLE MASK. EXPLAINED TO PT'S REGARDING MEDICATION BUSPAR AND UPDATED PATIENT'S CONDITION. NO ACUTE DISTRESS NOTED AT THIS TIME. WILL CONTINUE TO MONITOR.
--- NOTE | 2020-10-05 11:18 | NUR ---
PATIENT CALM. RESTING IN BED, BY THE WINDOW. O2 SAT 96% WITH 8L SIMPLE. NO ACUTE DISTRESS NOTED. WILL CONTINUE TO MONITOR.
[2020-10-05] MEDS ORDERED: POTASSIUM CHLORIDE 40 MEQ, LIDOCAINE MPF 1% 25 MG in NACL 0.9% 250 ML IV SCH (13:00)
--- NOTE | 2020-10-05 14:00 | NUR ---
K RIDER GIVEN FOR K+ LEVEL 3.1. EDUCATION PROVIDED TO THE PATIENT AND HIS . ALSO UPDATED PATIENT'S CONDITION WITH HIS DAUGHTER OVER THE PHONE. PT'S O2 SAT 97% WITH 8L O2 VIA SIMPLE MASK. SAFETY MEASURES IN PLACE, WILL CONTINUE TO MONITOR.
[2020-10-05 16:00] VITALS: BP 117/76
--- NOTE | 2020-10-05 17:21 | NUR ---
MAKE ROUNDS. PATIENT RESTING IN BED. NO ACUTE DISTRESS NOTED. O2 SAT 100% WITH 8L SIMPLE MASK. NO ACUTE DISTRESS NOTED. WILL CONTINUE TO MONITOR.
--- NOTE | 2020-10-05 18:32 | NUR ---
DISCONNECT THE IV. FLUSHED WITH 40ML OF NS. PATIENT'S O2 SAT 100% WITH 8L SIMPLE MASK. PATIENT IS CALM. PATIENT'S AND DAUGHTER BY THE WINDOW. ALL NEEDS MET. ENCOURAGED PATIENT TO RELAX AND USE INCENTIVE SPIROMETER. WILL CONTINUE TO MONITOR.
--- NOTE | 2020-10-05 19:35 | NUR ---
RECEIVED PT AAOX4 , O2 SAT WNL - ON SIMPLE MASK AT 8LPM . FLACC O . C/O COUGH - WILL MEDICATE . PLAN OF CARE DISCUSSED AND VERBALIZE UNDERSTANDING - CALL LIGHT WITHIN REACH . SAfety measures in place . relatives viewing over the window . will cont. to monitor.
--- NOTE | 2020-10-05 19:35 | NUR ---
ENDORSED PATIENT TO GOLD RECLAIMER RN FOR CONTINUITY OF CARE. PATIENT IN STABLE CONDITION WITH 8L SIMPLE MASK.
[2020-10-05] MEDS: guaiFENesin DM 200/20 MG-10 ML 10 ML UDC PO PRN (21:33)
[2020-10-06] VITALS: BP 122/76
[2020-10-06] MEDS: ALBUTEROL SULFATE/IPRATROPIU 3 ML SOL IH SCH ×4 (01:00→19:00)
--- NOTE | 2020-10-06 02:00 | NUR ---
o2 sat wnl . no s/sx of acute distress noted .call light within reach .
--- NOTE | 2020-10-06 04:00 | NUR ---
sleeping - o2 sat wnl .
--- NOTE | 2020-10-06 06:00 | NUR ---
O2 SAT 93 % - BOTH PT AND PT'S ARE SLEEPING .
--- NOTE | 2020-10-06 06:20 | NUR ---
I TOLD TO NICOLASA CRANDALL GIVE THE PT'S BEDBATH BUT KARLEY REFUSE SHE SAID SHE WILL ENDORSE IT TO HEEL FINISHER MORNING SHIFT - PT IS SLEEPING AT THIS TIME .
--- NOTE | 2020-10-06 07:35 | NUR ---
RECEIVED ENDORSEMENT FROM ROUTE SALESPERSON, AWAKE,ALERT, ORIENTEDX3, WITH O2 AT 8L/MIN VIA SIMPLE MASK, 02SAT-96%, NOT I DISTRESS NOTED. WITH IV CANNULA G20 AT LEFT FOREARM ON SALINE LOCK NOTED. SAFETY MEASURES IN PLACE AND CONTINUE MONITOR.
--- NOTE | 2020-10-06 07:37 | NUR ---
ENDORSED - PT - STABLE .
[2020-10-06 08:00] VITALS: BP 113/67
[2020-10-06] MEDS: busPIRone 5 MG TAB PO SCH ×2 (08:09→21:32)
[2020-10-06] MEDS: ENOXAPARIN 40 MG/0.4 ML SYR SUBQ SCH (08:10)
--- NOTE | 2020-10-06 08:11 | NUR ---
RECEIVED ON SUPPLEMENTAL OXYGEN AT 8 LPM VIA ADULT SIMPLE MASK SATURATION 97% LOC AWAKE AND ALERT VERBALLY RESPONSIVE TO MACHINE BRUSH MAKER VERBAL COMMANDS GOOD EYE TRACKING EQUAL CHEST RISE GOOD AERATION THROUGHOUT BILATERAL LING MORALES AIRWAY PATENT POS HHN THERAPY TITRATED FIO2 TO 7 LPM REYLN/RN AT BEDSIDE AND AWARE MACHINE BRUSH MAKER TO MONITOR AND TITRATE TOLERATED
--- NOTE | 2020-10-06 08:19 | NUR ---
RT AT BEDSIDE, BREATHING TREATMENT ADMINISTERED. DUE MEDICATION GIVEN GIVEN
[2020-10-06 11:00] LABS: ANION GAP 7.7 (8-16); POTASSIUM 3.7 mmol/L (3.5-5.1)
[2020-10-06 11:01] LABS: ALBUMIN 2.5 g/dL (3.4-5.0); CREATININE 0.5 mg/dL (0.6-1.3); TOTAL BILIRUBIN 0.4 mg/dL (0.0-1.0)
[2020-10-06 11:02] LABS: MAGNESIUM 1.9 mg/dL (1.8-2.4); PHOSPHORUS 2.5 mg/dL (2.5-4.9)
--- NOTE | 2020-10-06 12:12 | NUR ---
BEDPAN OFFERED, PATIENT VERBALIZED TO HAVE BOWEL MOVEMENT
--- NOTE | 2020-10-06 13:23 | NUR ---
AFTERNOON CARE DONE, UNABLE TO PASSED STOOL, ONLY URINE NOTED AT BEDPAN. VERONICA-ANAL CARE DONE
[2020-10-06 14:33] LABS: BASOPHILS # (AUTO) 0.1 K/uL (0.00-0.22); BASOPHILS % (AUTO) 0.5 % (0.0-2.0); EOSINOPHILS # (AUTO) 0.1 K/uL (0-0.4); HEMATOCRIT 34.4 % (36-52); HEMOGLOBIN 11.2 g/dL (12.0-18.0); LYMPHOCYTES # (AUTO) 0.8 K/uL (2.0-11.5); LYMPHOCYTES % (AUTO) 7.2 % (20.5-51.1); MEAN CORPUSCULAR HEMOGLOBIN 31 pg (27-31); MEAN CORPUSCULAR HGB CONC 33 g/dL (33-37); MEAN CORPUSCULAR VOLUME 95.2 fL (80-94); MONOCYTES # (AUTO) 0.5 K/uL (0.8-1.0); NEUTROPHILS # (AUTO) 9.1 K/uL (1.8-7.7); NEUTROPHILS % (AUTO) 86.3 % (42.2-75.2); PLATELET COUNT (AUTO) 228 K/uL (140-450); RED BLOOD CELL COUNT(AUTO) 3.61 MIL/uL (4.20-6.10); RED CELL DISTRIBUTION WIDTH 16.8 % (11.6-13.7); WHITE BLOOD COUNT (AUTO) 10.6 K/uL (4.8-10.8)
--- NOTE | 2020-10-06 14:52 | NUR ---
AWAKE AND ALERT VERBALLY RESPONSIVE GOOD CHEST RISE AND AERATION THROUGHOUT BILATERAL LUNG MORALES AIRWAY PATENT SATURATION 96% ON SUPPLEMENTAL OXYGEN AT 7 LPM VIA ADULT SIMPLE MASK POST HHN THERAPY CHANGED OXYGEN DEVICE TO OXYMIZER AT 10 LPM SUPERVISOR CHEMICAL TO MONITOR AND TITRATE
--- NOTE | 2020-10-06 15:20 | NUR ---
TOLERATING OXYMIZER WELL WITHOUT ADVERSE REACTIONS NOTED SATURATION 92% HEAD MILLER TO MONITOR
--- NOTE | 2020-10-06 15:23 | NUR ---
INCREASED HOB TO 30 DEGREES TO ALLOW EXPANSION OF BILATERAL LUNGS AND DIAPHRAGM TO DROP THUS INCREASING THE SATURATION NOW TO 96% RELYN/RN NOTIFIED
[2020-10-06 16:00] VITALS: BP 112/69
--- NOTE | 2020-10-06 16:10 | NUR ---
VITAL SIGNS TAKEN AND RECORDED, O2 AT 10L/MIN VIA OXYMIZER, [id number]%, NOT IN DISTRESS NOTED, CHOCOLATE PUDDING OFFERED
--- NOTE | 2020-10-06 18:05 | NUR ---
FULLY AWAKE AND ALERT, NOT IN DISTRESS NOTED
--- NOTE | 2020-10-06 19:35 | NUR ---
PT IN BED AOX4 VENEZUELAN AND TURKS AND CAICOS ISLANDER SPEAKING. HOB UP 35%. PT IS ON 10 LITERS OXYMIZER AND STABLE. FAMILY AT WINDOW. BEDSIDE REPORT GIVEN FOR CONTINUITY OF CARE. ALL FALLS PRECAUTIONS IN PLACE.
--- NOTE | 2020-10-06 19:35 | NUR ---
ENDORSED TO FISHERIES SPECIALIST IN STABLE CONDITION FOR CONTINUITY OF CARE
--- NOTE | 2020-10-06 20:00 | NUR ---
RT IN ROOM AND PT ON NEBULIZER TREATMENT. PT HAS 22G ON LEFT F/A INTACT AND SALINE LOCKED. ALL REQUESTED NEEDS ATTENDED BY STAFF. ALL FALLS PRECAUTIONS IN PLACE.
--- NOTE | 2020-10-06 21:00 | NUR ---
PT GIVEN ORDERED BUSPAR, EDUCATION REGARDING MEDICATION AND SIDE EFFECTS PROVIDED AT BEDSIDE. PT VERBALIZED UNDERSTANDING. V/S FOLLOWS: T 97.7 P 98 R 28 B/P 110/83 02 97% ON 10 LITERS OXYMIZER.
--- NOTE | 2020-10-06 23:45 | NUR ---
SPOKE WITH PAUL, DAUGHTER OF PT , REGARDING STATUS UPDATE. DAUGHTER REQUESTS FOR ANOTHER CXR TO BE DONE , WILL ENDORSE TO AM SHIFT TO FOLLOW UP.
[2020-10-07] VITALS: BP 110/66
[2020-10-07] MEDS: guaiFENesin DM 200/20 MG-10 ML 10 ML UDC PO PRN ×2 (00:09→21:01)
--- NOTE | 2020-10-07 00:10 | NUR ---
PT C/O UNPRODUCTIVE COUGH, PT GIVEN PO/PRN COUGH MEDICINE, ALL OTHER REQUESTED NEEDS ATTENDED BY STAFF.
[2020-10-07] MEDS: ALBUTEROL SULFATE/IPRATROPIU 3 ML SOL IH SCH ×5 (01:00→22:30)
--- NOTE | 2020-10-07 04:00 | NUR ---
PT IN BED , ALL REQUESTS ATTENDED V/S FOLLOWS: T 97.0 P 90 R 20 B/P 116/77 02 97% ON 10 LITERS VIA NON REBREATHER.
--- NOTE | 2020-10-07 07:32 | NUR ---
LOC ASLEEP RESTING COMFORTABLY GOOD CHEST RISE AN AERATION THROUGHOUT BILATERAL LUNG MORALES RECEIVED ON SUPPLEMENTAL OXYGEN AT 10 LPM VIA OXYMIZER POST HHN THERAPY TITRATED FIO2 TO 8 LPM SIMULATION EDUCATOR TO NOTIFY DAY/RN
--- NOTE | 2020-10-07 07:40 | NUR ---
ASLEEP RESTING WELL GOOD CHEST RISE SATURATION 95% ON SUPPLEMENTAL OXYGEN AT 8 LPM VIA OXYMIZER
[2020-10-07 08:00] VITALS: BP 113/80
--- NOTE | 2020-10-07 08:00 | NUR ---
RECEIVED REPORT FROM CROP NUTRITION SCIENTIST FOR CONTINUITY OF CARE. PATIENT ALERT AWAKE ORIENTED X4, NOT IN ACUTE DISTRESS NOTED. ON OXYGEN 10L EARLIER AND TITRATED TO 8L TOLERATING WELL SATURATION 98%. ASSESSMENT INITIATED. CALL LIGHT WITHIN REACH. FAMILY OUTSIDE THE WINDOW. NEEDS ATTENDED. WILL CONTINUE TO MONITOR.
--- NOTE | 2020-10-07 08:43 | NUR ---
NOTIFIED HARSH OF OXYGEN TITRATION TO 8 LPM VIA ADULT SIMPLE MASK Addendum: 10/07/20 at 0940 by Bubba Nova RT OXYGEN DEVICE CORRECTION: SUPPLEMENTAL OXYGEN VIA OXYMIZER
[2020-10-07] MEDS: ENOXAPARIN 40 MG/0.4 ML SYR SUBQ SCH (09:50)
[2020-10-07] MEDS: busPIRone 5 MG TAB PO SCH ×2 (09:50→20:52)
--- NOTE | 2020-10-07 12:00 | NUR ---
PATIENT RESTING IN BED, NO SOB NOTED. WILL CONTINUE TO MONITOR.
--- NOTE | 2020-10-07 14:02 | NUR ---
ASLEEP EASILY AWAKENS RESTING WELL GOOD CHEST RISE AND AERATION THROUGHOUT BILATERAL LUNG MORALES AIRWAY PATENT SATURATION 95% ON SUPPLEMENTAL OXYGEN AT 8 LPM VIA OXYMIZER POST HHN THERAPY TITRATED FIO2 TO 7 LPM INVOICING MACHINE OPERATOR TO MONITOR AND TITRATE FIO2 TOLERATED
[2020-10-07 16:00] VITALS: BP 123/77
--- NOTE | 2020-10-07 19:42 | NUR ---
REPORT GIVEN TO THE PRESSURE DISPATCHER FOR CONTINUITY OF CARE. PATIENT IN STABLE CONDITION.
--- NOTE | 2020-10-07 19:45 | NUR ---
REPORT RECEIVED BY ANIKET, FOR CONTINUITY OF CARE, PT IN STABLE CONDITION.
[2020-10-07 20:00] VITALS: BP 110/73
--- NOTE | 2020-10-07 20:30 | NUR ---
PT LYING IN BED 02 DOWN TO 8 L N/C. PT IS AOX3 WITH 8 LITERS OXYMIZER. V/S STABLE, FAMILY AT WINDOW.
--- NOTE | 2020-10-07 21:15 | NUR ---
PT GIVEN ORDERED BUSPAR, EDUCATION REGARDING MEDICATION PROVIDED AT BEDSIDE. PT VERBALIZED UNDERSTANDING. ALL REQUESTS ATTENDED BY STAFF.
--- NOTE | 2020-10-07 22:30 | NUR ---
PT IN BED RESTING WITH EYES CLOSED. FAMILY AT WINDOW. ALL REQUESTS ATTENDED, PT 02 IS 93-94 %
--- NOTE | 2020-10-08 00:15 | NUR ---
DAUGHTER HIWOT UPDATED REGARDING PT CONDITION.
--- NOTE | 2020-10-08 02:00 | NUR ---
PT SLEEPING IN BED NO C/O VOICED. ALL ORDERED PRECAUTIONS IN PLACE.
[2020-10-08 04:00] VITALS: BP 124/78
[2020-10-08] MEDS: guaiFENesin DM 200/20 MG-10 ML 10 ML UDC PO PRN (06:16)
--- NOTE | 2020-10-08 06:30 | NUR ---
PT GIVEN PO/PRN COUGH MEDS.
[2020-10-08] MEDS: ALBUTEROL SULFATE/IPRATROPIU 3 ML SOL IH SCH ×4 (07:00→19:25)
--- NOTE | 2020-10-08 07:10 | NUR ---
REC'D REPORT FROM SPOT CLEANER NURSE, PT STABLE, 8L OXIMIZER, CALL LIGHT WITHIN REACH
[2020-10-08 08:00] VITALS: BP 129/85
--- NOTE | 2020-10-08 08:05 | NUR ---
ASLEEP EASILY AWAKENS VERBALLY RESPONSIVE EQUAL CHEST RISE GOOD AERATION THROUGHOUT BILATERAL LUNG MORALES AIRWAY PATENT SATURATION 96% ON SUPPLEMENTAL OXYGEN AT 7 LPM VIA OXYMIZER POST HHN THERAPY TITRATED FIO2 TO 6 LPM REBAR WORKER TO NOTIFY DAY/RN
--- NOTE | 2020-10-08 08:20 | NUR ---
PER PETER IN RESPIRATORY, PT SATURATION OF 97%, REDUCED OXYGEN TO 6L OXIMIZER TO ATTEPT AND WEAN PT OFF OXYGEN, PT TOLERATED PROCEDURE WELL.
--- NOTE | 2020-10-08 08:51 | NUR ---
PT'S OXYGEN SATURATION AT 77% AT 6L OXIMIZER, INCREASED OXYGEN TO 8L, CHANGED PT'S PULSE OXIMETER FINGER SENSOR AND CHECKED WITH MULTIPLE MACHINES FOR OXYGEN SATURATION. ON 8L PT 'S OXYGEN RANGED FROM 81-90%, ELEVATED HEAD OF BED TO 40DEGREES AND ASKED THAT PATIENT PRACTICE DEEP BREATHING, IN AND OUT. SHOWED BY EXAMPLE. PT STABLE
[2020-10-08] MEDS: ENOXAPARIN 40 MG/0.4 ML SYR SUBQ SCH (09:35)
[2020-10-08] MEDS: busPIRone 5 MG TAB PO SCH ×2 (09:35→21:33)
--- NOTE | 2020-10-08 10:16 | NUR ---
PT SATURATION 94% 8L OXIMIZER, STABLE HAVING BREAKFAST
[2020-10-08 16:00] VITALS: BP 117/83
--- NOTE | 2020-10-08 19:55 | NUR ---
ENDORSED PT TO SANITARY LANDFILL SUPERVISOR NURSE ,PT STABLE ON 9L OXIMIZER, SATURATION 94%. CALL LIGHT WITHIN REACH
[2020-10-08 20:00] VITALS: BP 117/84
[2020-10-09 04:00] VITALS: BP 108/65
[2020-10-09 06:20] LABS: BASOPHILS % (AUTO) 0.4 % (0.0-2.0); EOSINOPHILS # (AUTO) 0.2 K/uL (0-0.4); EOSINOPHILS % (AUTO) 1.8 % (0.0-4.0); HEMATOCRIT 33.9 % (36-52); HEMOGLOBIN 11.3 g/dL (12.0-18.0); LYMPHOCYTES # (AUTO) 0.6 K/uL (2.0-11.5); MEAN CORPUSCULAR HEMOGLOBIN 31 pg (27-31); MEAN CORPUSCULAR HGB CONC 33 g/dL (33-37); MEAN CORPUSCULAR VOLUME 93.9 fL (80-94); MONOCYTES # (AUTO) 0.5 K/uL (0.8-1.0); MONOCYTES % (AUTO) 5.9 % (1.7-9.3); NEUTROPHILS # (AUTO) 7.5 K/uL (1.8-7.7); NEUTROPHILS % (AUTO) 84.9 % (42.2-75.2); PLATELET COUNT (AUTO) 311 K/uL (140-450); RED BLOOD CELL COUNT(AUTO) 3.61 MIL/uL (4.20-6.10); RED CELL DISTRIBUTION WIDTH 16.6 % (11.6-13.7); WHITE BLOOD COUNT (AUTO) 8.8 K/uL (4.8-10.8)
--- NOTE | 2020-10-09 06:52 | NUR ---
PAUL WOULD LIKE CXR PT AND DR CALL HER BACK [phone] AND RT TO NOT LOWER O2 SO FAST.
[2020-10-09 07:10] LABS: CARBON DIOXIDE 35.2 mmol/L (21-32); CREATININE 0.7 mg/dL (0.6-1.3); POTASSIUM 5.2 mmol/L (3.5-5.1)
[2020-10-09] MEDS: ALBUTEROL SULFATE/IPRATROPIU 3 ML SOL IH SCH ×3 (07:11→19:55)
[2020-10-09 07:22] LABS: PHOSPHORUS 3.9 mg/dL (2.5-4.9)
--- NOTE | 2020-10-09 07:30 | NUR ---
RECEIVED REPORT FROM APPLICATION PROJECT LEADER NURSE. ASSESS PT AT BEDSIDE, PT RESTING, NO DISTRESS NOTED, ABLE TO LET NEEDS KNOWN, IV TO R FA 18G PATENT INTACT, INFUSING WELL, PT ON 15LPM OXYMIZER, NO SOB NOTED, INITIAL ASSESSMENT DONE, ALL SAFETY PRECAUTION MET, CALL LIGHT WITHIN REACH, WILL CONTINUE TO MONITOR.
[2020-10-09 08:00] VITALS: BP 109/76
--- NOTE | 2020-10-09 08:10 | NUR ---
RECEIVED PHONECALL FROM DAUGHTER STATED SHE IS REFUSING PHYSICAL THERAPY FOR HER DAD BECAUSE YESTERDAY "HE GOT REALLY OUT OF BREATHE" WILL ENDORSE TO PT.
[2020-10-09] MEDS: busPIRone 5 MG TAB PO SCH ×2 (08:42→20:52)
[2020-10-09] MEDS: ENOXAPARIN 40 MG/0.4 ML SYR SUBQ SCH (08:43)
--- NOTE | 2020-10-09 09:00 | NUR ---
P.T. NOTES PER NURSE MALLIKA, DAUGHTER IS REFUSING ANY PHYSICAL THERAPY TO HER FATHER DUE TO HE GETS VERY WINDED DURING AND AFTER THE THERAPY. PLAN: WE'LL FOLLOW UP AGAIN TOMORROW.
--- NOTE | 2020-10-09 15:10 | NUR ---
NOTIFIED DR VANG REGARDING PT POTASSIUM 5.2, PER DR TO CONTINUE TO MONITOR. NO NEW ORDER.
--- NOTE | 2020-10-09 15:40 | NUR ---
10/09/20 RD FOLLOW UP COMPLETED PLEASE REFER TO NUTRITION ASSESSMENT UNDER CARE ACTIVITY FOR ESTIMATED NUTRITIONAL NEEDS. 1. CONTINUE MECHANICAL SOFT DIET AND ENSURE TID 2. ENCOURAGED PO INTAKE >75% 3. RD TO FOLLOW-UP 3-5 DAYS, MODERATE RISK ROSARIO ROSARIO, RD
[2020-10-09 16:00] VITALS: BP 106/77
--- NOTE | 2020-10-09 18:40 | NUR ---
PT SATURATING @ 100%, CHANGED OXYMIZER TO 13LPM, WILL CONTINUE TO MONITOR.
--- NOTE | 2020-10-09 19:24 | NUR ---
ENDORSED PT TO MEDICAL OPERATIONS SUPERVISOR NURSE FOR CONTINUOUS OF CARE
--- NOTE | 2020-10-09 19:30 | NUR ---
RECEIVED PATIENT FROM AM SHIFT FOR CONTINUITY OF CARE. ABLE TO MAKE NEEDS KNOWN. RESPIRATIONS EVEN, SLIGHTLY LABORED UPON EXERTION. CONTINUES ON O2 11L VIA NC, O2SAT 92%. NO C/O PAIN. NO S/S ACUTE DISTRESS. SKIN WARM, DRY. SALINE LOCK TO LEFT WRIST 20G PATENT/INTACT. ABDOMEN SOFT, NONTENDER, NONDISTENDED. BOWEL SOUNDS ACTIVE X4 QUADRANTS. PATIENT IS CONTINENT OF B/B. PLAN OF CARE DISCUSSED. CALL LIGHT WITHIN REACH.
[2020-10-09 20:00] VITALS: BP 110/67
--- NOTE | 2020-10-09 21:40 | NUR ---
DUE MEDS GIVEN. PATIENT RESTING COMFORTABLY IN BED. NO S/S ACUTE DISTRESS. NO C/O PAIN. CALL LIGHT WITHIN REACH.
--- NOTE | 2020-10-09 23:30 | NUR ---
PATIENT RESTING COMFORTABLY IN BED. NO S/S ACUTE DISTRESS. CALL LIGHT WITHIN REACH.
[2020-10-10] MEDS: ALBUTEROL SULFATE/IPRATROPIU 3 ML SOL IH SCH ×4 (01:00→18:59)
--- NOTE | 2020-10-10 01:00 | NUR ---
MADE ROUNDS. PATIENT IS ASLEEP. NO S/S ACUTE DISTRESS. CALL LIGHT WITHIN REACH.
--- NOTE | 2020-10-10 03:00 | NUR ---
PATIENT IS ASLEEP. NO S/S ACUTE DISTRESS. CALL LIGHT WITHIN REACH.
[2020-10-10 04:00] VITALS: BP 110/70
--- NOTE | 2020-10-10 05:10 | NUR ---
PATIENT RESTING COMFORTABLY IN BED. NO S/S ACUTE DISTRESS. CALL LIGHT WITHIN REACH.
--- NOTE | 2020-10-10 07:10 | NUR ---
REC'D REPORT FROM PLANT SECURITY GUARD NURSE. PT STABLE, 9L OXIMIZER SATURATION 94%.
--- NOTE | 2020-10-10 07:10 | NUR ---
ENDORSED PATIENT TO AM SHIFT NURSE FOR CONTINUITY OF CARE.
[2020-10-10] MEDS: busPIRone 5 MG TAB PO SCH ×2 (09:37→22:00)
[2020-10-10] MEDS: ENOXAPARIN 40 MG/0.4 ML SYR SUBQ SCH (09:38)
[2020-10-10 16:00] VITALS: BP 107/75
[2020-10-10 20:00] VITALS: BP 110/74
--- NOTE | 2020-10-10 20:25 | NUR ---
ENDORSED PT TO HEALTH RECORDS TECHNOLOGY TEACHER NURSE, PT STABLE
[2020-10-11] VITALS: BP 133/69
[2020-10-11] MEDS: ALBUTEROL SULFATE/IPRATROPIU 3 ML SOL IH SCH ×4 (01:45→19:00)
[2020-10-11 04:00] VITALS: BP 105/67
[2020-10-11 07:04] LABS: BASOPHILS % (AUTO) 0.5 % (0.0-2.0); EOSINOPHILS # (AUTO) 0.2 K/uL (0-0.4); EOSINOPHILS % (AUTO) 1.8 % (0.0-4.0); HEMATOCRIT 33.7 % (36-52); LYMPHOCYTES # (AUTO) 1.2 K/uL (2.0-11.5); LYMPHOCYTES % (AUTO) 12.3 % (20.5-51.1); MEAN CORPUSCULAR HEMOGLOBIN 31 pg (27-31); MEAN CORPUSCULAR HGB CONC 33 g/dL (33-37); MEAN CORPUSCULAR VOLUME 94.4 fL (80-94); MONOCYTES # (AUTO) 0.7 K/uL (0.8-1.0); MONOCYTES % (AUTO) 7.2 % (1.7-9.3); NEUTROPHILS # (AUTO) 7.6 K/uL (1.8-7.7); NEUTROPHILS % (AUTO) 78.2 % (42.2-75.2); PLATELET COUNT (AUTO) 299 K/uL (140-450); RED BLOOD CELL COUNT(AUTO) 3.57 MIL/uL (4.20-6.10); RED CELL DISTRIBUTION WIDTH 16.6 % (11.6-13.7); WHITE BLOOD COUNT (AUTO) 9.8 K/uL (4.8-10.8)
[2020-10-11 07:27] LABS: MAGNESIUM 2.4 mg/dL (1.8-2.4); PHOSPHORUS 3.6 mg/dL (2.5-4.9)
[2020-10-11 07:30] LABS: ANION GAP 8.8 (8-16); CARBON DIOXIDE 36.1 mmol/L (21-32); CREATININE 0.6 mg/dL (0.6-1.3); POTASSIUM 3.9 mmol/L (3.5-5.1)
--- NOTE | 2020-10-11 07:34 | NUR ---
RECEIVED PATIENT FROM NIGHT NURSE. PATIENT IN BED AWAKE AND ALERT. RESP EVEN AND UNLABORED ON 8L OXIMIZER, O2SAT 97%. NO NOTED ACUTE S/S DISTRESS. FAMILY AT WINDOW. LFA 22G SL. PLAN OF CARE DISCUSSED, PATIENT VERBALIZED UNDERSTANDING. SAFETY MEASURES IN PLACE. CALL LIGHT WITHIN REACH. WILL CONTINUE TO MONITOR.
[2020-10-11] MEDS: busPIRone 5 MG TAB PO SCH ×2 (08:42→20:50)
--- NOTE | 2020-10-11 09:40 | NUR ---
PATIENT IN BED AWAKE AND ALERT. RESP EVEN AND UNLABORED ON 8L OXIMIZER, O2SAT 94%. LUNGS CLEAR. NO NOTED ACUTE S/S DISTRESS. PATIENT ABLE TO MAKE NEEDS KNOWN AND FOLLOW COMMANDS. LFA 22G INTACT AND PATENT, SL. MORNING ROUTINE MEDICATIONS GIVEN. PATIENT TOLERATED WELL. HOB ELEVATED. CALL LIGHT WITHIN REACH. WILL CONTINUE TO MONITOR.
--- NOTE | 2020-10-11 12:25 | NUR ---
PATIENT IN BED SLEEPING, CHEST NOTED RISING. O2SAT 94% ON 8L OXIMIZER. NO NOTED ACUTE S/S DISTRESS. CALL LIGHT WITHIN REACH. WILL CONTINUE TO MONITOR.
--- NOTE | 2020-10-11 14:53 | NUR ---
PATIENT IN BED AWAKE AND ALERT. TALKING TO FAMILY. NO NOTED ACUTE S/S DISTRESS. CALL LIGHT WITHIN REACH. WILL CONTINUE TO MONITOR.
[2020-10-11 16:00] VITALS: BP 115/84
--- NOTE | 2020-10-11 16:38 | NUR ---
PATIENT IN BED WAKE AND ALERT. ABLE TO REPOSITION SELF IN BED WITHOUT ANY SOB. O2SAT DESAT TO 89% DURING ASSESSMENT. AT REST O2SAT 93%. PATIENT ENCOURAGED TO USE I/S HOURLY AND TURNING SELF IN BED TOLERATED. CALL FOR ASSIST NEEDED. PATIENT VERBALIZED UNDERSTANDING. CALL LIGHT WITHIN REACH. WILL CONTINUE TO MONITOR.
--- NOTE | 2020-10-11 19:14 | NUR ---
ENDORSED PATIENT TO NIGHT NURSE. PATIENT IN STABLE CONDITION.
--- NOTE | 2020-10-11 19:15 | NUR ---
RECEIVED BEDSIDE REPORT FROM DAY SHIFT NURSE FOR CONTINUITY OF CARE. PT IS AWAKE AND ALERT, A&OX4. SPEAKING APPROPRIATELY. OUTSIDE WINDOW FOR VISITING. ON 8L O2 OXIMIZER, WITH BREATHING UNLABORED. O2 SAT IS 96%. PT USES URINAL AND AMBULATORY WITH ASSISTANCE. SKIN IS WARM, DRY, AND INTACT. IV IS IN THE LEFT FOREARM 22 GAUGE SALINE LOCKED AND WRAPPED WITH GAUZE. PLAN OF CARE DISCUSSED. PT IS STABLE.
[2020-10-11 20:00] VITALS: BP 141/57
--- NOTE | 2020-10-11 21:30 | NUR ---
EDUCATED PT ON USE OF INCENTIVE SPIROMETER. PT VERBALIZED UNDERSTANDING. PT IS LAYING IN SEMI FOWLERS POSITION. NO RESPIRATORY DISTRESS NOTED. PT OXYGEN SATURATION LEVEL DECREASES WHEN PT IS TALKING. LOWEST O2 SAT WAS 87%. WHEN PT IS AT REST, BACK UP TO 96%. PT IS STABLE AT THIS TIME.
--- NOTE | 2020-10-11 22:58 | NUR ---
ROUNDED ON PT. HE IS AWAKE IN BED. OXIMIZER IN PLACE WITH 8L O2. O2 SAT IS 95%. PT STATES HE IS OKAY AT THIS TIME. PT IS STABLE.
--- NOTE | 2020-10-12 00:30 | NUR ---
PT EASILY AWOKEN BY NOISE. PT ASKED TO BE CHECKED ON FREQUENTLY FOR O2 SATURATION. INFORMED PT THAT I DO HOURLY ROUNDS ON ALL PTS AND TO CALL ME ON THE CALL LIGHT IF THERE IS A CONCERN. PT'S BREATHING IS UNLABORED. O2 SAT IS AT 98% ON 8L O2 OXIMIZER. PT IS STABLE AT THIS TIME AND SPEAKING APPROPRIATELY.
[2020-10-12] MEDS: ALBUTEROL SULFATE/IPRATROPIU 3 ML SOL IH SCH ×4 (01:00→19:50)
--- NOTE | 2020-10-12 02:30 | NUR ---
PT IS SLEEPING. IS AT THE WINDOW FOR VISITING. IV IS SALINE LOCKED. CALL LIGHT IS WITHIN REACH. O2 SAT IS 97%. PT IS STABLE AT THIS TIME.
[2020-10-12 04:00] VITALS: BP 110/74
--- NOTE | 2020-10-12 04:30 | NUR ---
PT IS ASLEEP. O2 SAT IS 96% ON 8L O2 OXIMIZER. NO RESPIRATORY DISTRESS NOTED. BREATHING IS REGULAR AND UNLABORED. IV IS SALINE LOCKED. WILL CONTINUE TO MONITOR.
--- NOTE | 2020-10-12 06:00 | NUR ---
PT IS STABLE. O2 SAT IS 98% ON OXIMIZER 8L O2. NO RESPIRATORY DISTRESS NOTED. PT IS AWAKE AND SPEAKING APPROPRIATELY. SATURATION GOES DOWN PT TALKS. PT IS NOW STABLE.
--- NOTE | 2020-10-12 07:15 | NUR ---
ENDORSED PT TO DAY SHIFT NURSE FOR CONTINUITY OF CARE. PT IS STABLE. PLAN OF CARE DISCUSSED.
--- NOTE | 2020-10-12 07:30 | NUR ---
RECEIVED REPORT FROM NIGHT NURSE FOR CONTINUITY OF CARE. PT IS STABLE. PT ON 8L OXIMIZER, PT HAS LFA 22G SALINE LOCK . SAFETY MEASURES IN PLACE, WILL CONTINUE TO MONITOR.
[2020-10-12 08:00] VITALS: BP 116/82
[2020-10-12] MEDS: ENOXAPARIN 40 MG/0.4 ML SYR SUBQ SCH (09:13)
[2020-10-12] MEDS: busPIRone 5 MG TAB PO SCH ×2 (09:14→20:54)
--- NOTE | 2020-10-12 09:17 | NUR ---
ADMINISTERED SCHEDULED MEDICATION, MEDICATION EDUCATION PROVIDED. PT TOLERATED WELL. PT IS STABLE, WILL CONTINUE TO MONITOR.
[2020-10-12 16:00] VITALS: BP 128/70
--- NOTE | 2020-10-12 19:20 | NUR ---
RECEIVED BEDSIDE REPORT FROM DAY SHIFT NURSE FOR CONTINUITY OF CARE. PT IS AWAKE AND ALERT, A&OX4. ON 8L O2 OXIMIZER WITH BREATHING UNLABORED. PT IS IN HIGH FOWLERS POSITION. SOB WHEN TALKING. PT WAS TITRATED DOWN TO 7L O2 OXIMIZER BY ME. WILL CONTINUE TO MONITOR. URINAL AT BEDSIDE FOR VOIDING. SKIN IS WARM, DRY, AND INTACT. IV IS IN THE LEFT FOREARM 22 GAUGE SALINE LOCKED. FALL PRECAUTIONS AND STANDARD PRECAUTIONS. PLAN OF CARE DISCUSSED.
--- NOTE | 2020-10-12 19:20 | NUR ---
ENDORSE PT TO NIGHT NURSE FOR CONTINUITY OF CARE
--- NOTE | 2020-10-12 19:50 | NUR ---
RT AT THE BEDSIDE WITH A BREATHING TREATMENT. INFORMED HER THAT I TITRATED PT DOWN TO 7L O2.
[2020-10-12 20:00] VITALS: BP 115/65
--- NOTE | 2020-10-12 21:13 | NUR ---
ROUNDED ON PT. O2 SAT IS 85% ON 7L O2 OXIMIZER. PT WAS NOT TOLERATING TITRATING DOWN ON OXYGEN. PT WAS INSTRUCTED TO LAY ON BACK INSTEAD OF SIDE WHICH TENDS TO MAKE HIS SATURATION LOWER. PT IS NOW ON 8L O2 OXIMIZER WITH O2 SAT AT 90%. WILL CONTINUE TO MONITOR.
--- NOTE | 2020-10-12 23:15 | NUR ---
ROUNDED ON PT. HIS O2 SAT IS 96% ON 8L O2 OXIMIZER. BREATHING IS UNLABORED, NO SOB NOTED. PT WAS EDUCATED ON THE IMPORTANCE OF USING THE INCENTIVE SPIROMETER. HE WAS ALSO ENCOURAGED TO MAKE SMALL MOVEMENTS IN BED IN CHANGING POSITION TO HELP EXPAND LUNGS. PT VERBALIZED UNDERSTANDING.
--- NOTE | 2020-10-12 23:16 | NUR ---
SPOKE TO DAUGHTER ON THE PHONE. UPDATED HER ON THE PLAN OF CARE. UPDATED HER ON THE CONDITION OF THE PT. ALL QUESTIONS ANSWERED.
--- NOTE | 2020-10-13 01:30 | NUR ---
PT IS SLEEPING AND STABLE. NO RESPIRATORY DISTRESS NOTED. NO SOB OR LABORED BREATHING. WILL CONTINUE TO MONITOR.
--- NOTE | 2020-10-13 03:56 | NUR ---
PT EASILY AWOKEN WHEN ENTERING ROOM. A&OX4. PT APPEARS CALM AND STABLE. O2 SAT IS 98% ON 8L O2 OXIMIZER. FAMILY IS AT WINDOW FOR VISITING.
[2020-10-13 04:00] VITALS: BP 101/78
--- NOTE | 2020-10-13 06:00 | NUR ---
PT'S O2 SAT IS 98% ON 8L O2 OXIMIZER. PT DOES NOT TOLERATE MOVEMENT WELL. SOB NOTED WITH MOVEMENT. NO RESPIRATORY DISTRESS AT THIS TIME. PT STABLE.
[2020-10-13] MEDS: ALBUTEROL SULFATE/IPRATROPIU 3 ML SOL IH SCH ×3 (07:00→19:00)
--- NOTE | 2020-10-13 07:15 | NUR ---
ENDORSED PT TO DAY SHIFT NURSE FOR CONTINUITY OF CARE. PT IS STABLE AT THIS TIME. O2 SAT IS 97% AT THIS TIME. PLAN OF CARE DISCUSSED.
--- NOTE | 2020-10-13 07:30 | NUR ---
RECEIVED PT AAOX4. NO SOB NOTED, ON 8 LITERS OXYGEN VIA OXIMIZER WITH 99-100% OXYGEN SATURATION. WILL TRY TO WEAN PT TODAY. INCENTIVE SPIROMETER AT THE BEDSIDE, IS TEACHING REINFORCED, PT STATED HE'S BEEN DOING IT EVERY HOUR WHEN HE IS AWAKE. NO C/O PAIN AT THIS TIME. INSTRUCTED PT TO CALL FOR ASSISTANCE, CALL LIGHT WITHIN REACH, VERBALIZED UNDERSTANDING.
[2020-10-13 08:00] VITALS: BP 109/78
[2020-10-13] MEDS: busPIRone 5 MG TAB PO SCH ×2 (09:56→20:59)
[2020-10-13] MEDS: ENOXAPARIN 40 MG/0.4 ML SYR SUBQ SCH (09:58)
--- NOTE | 2020-10-13 12:00 | NUR ---
O2 WEANING: @0800 HRS: PT ON 8 LITERS OXIMIZER, 99-100% O2 SATURATION, PT AT REST. @1000: 7 LITERS OXIMIZER, 94% O2 SATS. PT'S DAUGHTER WHO IS STANDING BY THE WINDOW OUTSIDE MADE AWARE, EXPLAINED THE PURPOSE OF WEANING/TITRATING O2 DOWN TO AT LEAST 6LPM, DAUGHTER VERBALIZED UNDERSTANDING. PT SEEMED TO TOLERATE WEANING WELL. NO SOB NOTED. PT IS CALM, INCENTIVE SPIROMETER TEACHING REINFORCED, PT VERBALIZED UNDERSTANDING. @1015: 90% O2 SATS WITH 7 LITERS OXIMIZER, PT AT REST. 93% O2 SATS WITH 7 LITERS AND WITH DEEP BREATHING EXERCISES. @1115: 91% O2 SATS ON 7 LITERS, 95% WITH DEEP BREATHING WILL CONTINUE TO MONITOR PT.
[2020-10-13 16:00] VITALS: BP 127/74
--- NOTE | 2020-10-13 16:48 | NUR ---
@1130 HRS: 91% O2 SATS WITH 7 LITERS OXIMIZER, 95% ON DEEP BREATHING EXERCISES. @1200 NOON: PT DESATS UPON EXERTION 89% O2 SATS ON 7 LITERS WHILE TRYING TO SIT UP ON BED. ENCOURAGED PT TO DO DEEP BREATHING AND TRY TO RELAX. PT VERBALIZED UNDERSTANDING. @1300: 90% ON 7 LITERS WHILE FINISHING HIS LUNCH. @7865-2787 HRS: 95% ON 7 LITERS -PT RESTING, CALM.
--- NOTE | 2020-10-13 18:53 | NUR ---
@1630 HRS: PT TRYING TO SIT AT THE SIDE OF THE BED AND DANGLE LEGS, PT WAS HAVING SOB, O2 SATURATION DROPPED TO 83% ON 7 LITERS OXIMIZER. INSTRUCTED TO RELAX AND TAKE SOME DEEP BREATHS, O2 SATS INCREASED TO 93%. REINFORCED INCENTIVE SPIROMETER TEACHINGS, PT VERBALIZED UNDERSTANDING. @1800 HRS: 96% ON 7 LITERS OXIMIZER WHILE AT REST WAITING FOR DINNER.
--- NOTE | 2020-10-13 19:18 | NUR ---
PT EATING DINNER. NO SOB NOTED, WITH 93% O2 SATS ON 7 LITERS OXIMIZER. ENDORSED TO ADOLPH-OLIVE TO CONTINUE WEANING PT'S OXYGEN OVERNIGHT TOLERATED.
--- NOTE | 2020-10-13 19:45 | NUR ---
AWAKE,ALERT AND ORIENTED.RESP.UNLABORED W/O2 AT 7L/OXIMIZER.SL.PATENT.LUNGS DIMINISHED.NO C/O PAIN OR SOB NOW.CALL LIGHT IN REACH.WILL CONTINUE MONITORING.
[2020-10-13 20:00] VITALS: BP 108/75
[2020-10-13] MEDS: guaiFENesin DM 200/20 MG-10 ML 10 ML UDC PO PRN (20:59)
--- NOTE | 2020-10-14 00:01 | NUR ---
ASKED FOR COUGH MEDICINE EARLIER.IT GIVEN NO COUGH AT THIS TIME.HER DAUGHTER CALLED AND INFORMATION SHE ASKED GIVEN TO HER.SHE VERBALIZED UNDERSTANDING.PT REFUSED CHANGE POSITION.
[2020-10-14] MEDS: ALBUTEROL SULFATE/IPRATROPIU 3 ML SOL IH SCH ×4 (01:00→19:54)
[2020-10-14 04:00] VITALS: BP 132/78
--- NOTE | 2020-10-14 07:00 | NUR ---
SLEPT WELL.WHEN HE IS SLEEPING O2 SAT IS BETWEEN 96-98%.NO DISTRESS NOTED.RESP.UNLABORED.CONDITION AND VS STABLE.
--- NOTE | 2020-10-14 07:40 | NUR ---
RECEIVED PATIENT FROM NIGHT NURSE. PATIENT IN BED SLEEPING, CHEST NOTED RISING. NO NOTED ACUTE S/S DISTRESS. O2SAT 94%. HOB ELEVATED. SAFETY MEASURES IN PLACE. CALL LIGHT WITHIN REACH. WILL CONTINUE TO MONITOR.
[2020-10-14] MEDS: ENOXAPARIN 40 MG/0.4 ML SYR SUBQ SCH (08:30)
[2020-10-14] MEDS: busPIRone 5 MG TAB PO SCH ×2 (08:31→20:17)
[2020-10-14] MEDS: guaiFENesin DM 200/20 MG-10 ML 10 ML UDC PO PRN ×2 (08:40→20:28)
--- NOTE | 2020-10-14 08:41 | NUR ---
PATIENT IN BED AWAKE AND ALERT. RESP EVEN AND UNLABORED ON 7L OXIMIZER, O2SAT 98%. NO NOTED ACUTE S/S DISTRESS. PATIENT ABLE TO MAKE NEEDS KNOWN AND FOLLOW COMMANDS. MORNING ROUTINE MEDICATIONS GIVEN. PATIENT TOLERATED WELL. ENCOURAGED TO USE I/S HOURLY. LFA 22G INTACT AND PATENT. OXYGEN TITRATING DOWN TO 6L. PATIENT MAINTAINED 93%. COUGH SYRUP GIVEN PRN. HOB ELEVATED. CALL LIGHT WITHIN REACH. WILL CONTINUE TO MONITOR.
[2020-10-14 09:11] LABS: BASOPHILS # (AUTO) 0.1 K/uL (0.00-0.22); BASOPHILS % (AUTO) 0.9 % (0.0-2.0); EOSINOPHILS # (AUTO) 0.3 K/uL (0-0.4); EOSINOPHILS % (AUTO) 4.1 % (0.0-4.0); HEMATOCRIT 33.9 % (36-52); HEMOGLOBIN 11.2 g/dL (12.0-18.0); LYMPHOCYTES # (AUTO) 1.6 K/uL (2.0-11.5); LYMPHOCYTES % (AUTO) 19.8 % (20.5-51.1); MEAN CORPUSCULAR HEMOGLOBIN 31 pg (27-31); MEAN CORPUSCULAR HGB CONC 33 g/dL (33-37); MEAN CORPUSCULAR VOLUME 94.2 fL (80-94); MONOCYTES # (AUTO) 0.5 K/uL (0.8-1.0); MONOCYTES % (AUTO) 6.6 % (1.7-9.3); NEUTROPHILS # (AUTO) 5.6 K/uL (1.8-7.7); NEUTROPHILS % (AUTO) 68.6 % (42.2-75.2); PLATELET COUNT (AUTO) 351 K/uL (140-450); RED CELL DISTRIBUTION WIDTH 16.4 % (11.6-13.7); WHITE BLOOD COUNT (AUTO) 8.2 K/uL (4.8-10.8)
[2020-10-14 09:20] LABS: CARBON DIOXIDE 37.8 mmol/L (21-32); CREATININE 0.5 mg/dL (0.6-1.3); POTASSIUM 4.8 mmol/L (3.5-5.1)
[2020-10-14 09:24] LABS: MAGNESIUM 1.8 mg/dL (1.8-2.4); PHOSPHORUS 3.6 mg/dL (2.5-4.9)
--- NOTE | 2020-10-14 10:35 | NUR ---
PATIENT IN BED AWAKE AND ALERT. NO NOTED DISTRESS AT THIS TIME. RESP EVEN AND UNLABORED, AT REST, AT 6L OXIMIZER, O2SAT 97%. AT WINDOW. CALL LIGHT WITHIN REACH. WILL CONTINUE TO MONITOR.
--- NOTE | 2020-10-14 11:00 | NUR ---
10/14/20 RD FOLLOW UP COMPLETED PLEASE REFER TO NUTRITION ASSESSMENT UNDER CARE ACTIVITY FOR ESTIMATED NUTRITIONAL NEEDS. 1. CONTINUE THE [facility] SOFT DIET TOLERATED 2. RECOMMEND ENSURE TID 3. RD TO FOLLOW-UP IN 3-5 DAYS PATIENT IS MODERATE RISK. MARLENE JONES, RD
--- NOTE | 2020-10-14 13:50 | NUR ---
PATIENT IN BED AWAKE AND ALERT. RESP EVEN AND UNLABORED ON 6L OXIMIZER, O2SAT 97%. ENCOURAGED TO USE I/S AND BREATHING EXERCISES. DENIED OF PAIN AT THIS TIME. CALL LIGHT WITHIN REACH. WILL CONTINUE TO MONITOR.
--- NOTE | 2020-10-14 15:38 | NUR ---
PATIENT IN BED SLEEPING, CHEST NOTED RISING. NO ACUTE S/S DISTRESS. CALL LIGHT WITHIN REACH. WILL CONTINUE TO MONITOR.
[2020-10-14 16:00] VITALS: BP 141/81
--- NOTE | 2020-10-14 18:12 | NUR ---
PATIENT IN BED AWAKE AND ALERT. PATIENT ENCOURAGED TO TURN FROM SIDE TO SIDE TOLERATED. PATIENT INSISTED HE WAS COMFORTABLE IN SUPINE POSITION. RESP EVEN AND UNLABORED AT REST ON 6L OXIMIZER, O2SAT 95%. DENIED OF PAIN AT THIS TIME. CALL LIGHT WITHIN REACH. WILL CONTINUE TO MONITOR.
--- NOTE | 2020-10-14 19:10 | NUR ---
ENDORSED PATIENT TO NIGHT NURSE. PATIENT IN STABLE CONDITION.
[2020-10-14 20:00] VITALS: BP 137/82
--- NOTE | 2020-10-15 | NUR ---
MADE ROUNDS , NO S/SX OF ACUTE DISTRESS NOTED - O2 SAT WNL .
[2020-10-15] MEDS: ALBUTEROL SULFATE/IPRATROPIU 3 ML SOL IH SCH ×2 (01:00→19:13)
--- NOTE | 2020-10-15 02:00 | NUR ---
SLEEPING - O2 SAT 98 %
[2020-10-15 04:00] VITALS: BP 132/83
--- NOTE | 2020-10-15 04:00 | NUR ---
O2 SAT WNL . NO S/X OF ACUTE DISTRESS NOTED . CALL LIGHT WITHIN REACH .
--- NOTE | 2020-10-15 05:00 | NUR ---
O2 SAT 99 % - CALL LIGHT WIRHIN REACH . SLEEPING .
--- NOTE | 2020-10-15 07:23 | NUR ---
ENDORSED - PT - STABLE . PT TOLERATED O2 AT 6LPM/ OXYMIZER FOR THE WHOLE INSPECTION ENGINEER
--- NOTE | 2020-10-15 07:25 | NUR ---
REC'D BEDSIDE ENDORSEMENT FROM NIGHTSHIFT NURSE. WILL PROCEED W/ CONTINUITY OF CARE.
[2020-10-15 08:00] VITALS: BP 121/81
[2020-10-15] MEDS: ENOXAPARIN 40 MG/0.4 ML SYR SUBQ SCH (09:42)
[2020-10-15] MEDS: busPIRone 5 MG TAB PO SCH ×2 (09:42→21:05)
--- NOTE | 2020-10-15 09:50 | NUR ---
ADMINISTERED PRESCRIBED MEDS ORDERED BY MD. PATIENT TOLERATED WELL. MEDICATION EDUCATION PROVIDED. PATIENT VERBALIZED UNDERSTANDING. SAFETY MEASURES IN PLACE. WILL CONT TO MONITOR.
--- NOTE | 2020-10-15 12:48 | NUR ---
HOURLY ROUNDING PERFORMED. PATIENT IN BED EATING LUNCH. FAMILY AT WINDOW. PATIENT IS ABLE TO MAKE NEEDS KNOWN. NO SIGNS OF DISTRESS. SAFETY MEASURES IN PLACE. WILL CONT TO MONITOR.
[2020-10-15 16:00] VITALS: BP 128/91
--- NOTE | 2020-10-15 19:41 | NUR ---
ENDORSED PATIENT TO NIGHTSHIFT NURSE FOR CONTINUITY OF CARE
[2020-10-15 20:00] VITALS: BP 109/74
--- NOTE | 2020-10-15 20:56 | NUR ---
CALLED TO BEDSIDE PT DESAT 80% PT WAS SUPINE AND ANXIOUS IN BED. RN WAS INFORMED OF ANXIETY AND PT REPOSITIONED W/ HOB ELEVATED IN LATERAL POSITION. SPO2 INCREASED AND IS NOW 86% AND APPEARS TO BE SLOWLY INCREASING. WILL CONTINUE TO MONITOR.
[2020-10-15] MEDS: guaiFENesin DM 200/20 MG-10 ML 10 ML UDC PO PRN (21:05)
--- NOTE | 2020-10-15 21:31 | NUR ---
made rounds , o2 sat 90 to 91 % , call light within rteach , brother watching over the window , will cont. to monitor .
--- NOTE | 2020-10-15 23:25 | NUR ---
RE VISIT THE PT - SLEEPING - O2 SAT 95 % - NO S/SX OF ACUTE DISTRESS NOTED AT THIS TIME . PT'S BROTHER VIEWING OVER THE WINDOW - I INCREASED THE O2 LEVEL FROM 6LPM TO 10 LPM WHILE AGO WHEN THE PT HAD DESAT WHILE POSITIONING THE PT. - INFORMED RT - WILL DEC. O2 LEVEL GRADUALLY IF THE PT WILL TOLERATE . WILL CONT. TO MONITOR . CALL LIGHT WITHIN REACH.
--- NOTE | 2020-10-16 02:00 | NUR ---
RE VISIT PT . SLEEPING O2 SAT 93 %
--- NOTE | 2020-10-16 02:40 | NUR ---
C/O ABDL . PAIN - BP 140 /90 , TX 92 , RR 20 , O2 SAT 95 % - WILL MEDICATE FOR PAIN ORDERED . Addendum: 10/16/20 at 0256 by Tanika Lockett RN THE ABOVE NURSE'S NOTE IS AN ERROR ENTRY - [place]
[2020-10-16 04:00] VITALS: BP 125/86
--- NOTE | 2020-10-16 04:00 | NUR ---
MADE ROUNDS , O2 SAT WNL . NO S/SX OF ACUTE DISTRESS NOTED .CALL LIGHT WITHIN REACH .
--- NOTE | 2020-10-16 06:00 | NUR ---
O2 SAT WNL . NO S/SX OF ACUTE DISTRESS NOTED . CALL LIGHT WITHIN REACH .
[2020-10-16 06:45] LABS: BASOPHILS # (AUTO) 0.1 K/uL (0.00-0.22); BASOPHILS % (AUTO) 0.6 % (0.0-2.0); EOSINOPHILS # (AUTO) 0.3 K/uL (0-0.4); EOSINOPHILS % (AUTO) 4.1 % (0.0-4.0); HEMATOCRIT 34.1 % (36-52); HEMOGLOBIN 11.1 g/dL (12.0-18.0); LYMPHOCYTES # (AUTO) 1.8 K/uL (2.0-11.5); LYMPHOCYTES % (AUTO) 21.9 % (20.5-51.1); MEAN CORPUSCULAR HEMOGLOBIN 31 pg (27-31); MEAN CORPUSCULAR HGB CONC 33 g/dL (33-37); MEAN CORPUSCULAR VOLUME 93.8 fL (80-94); MONOCYTES # (AUTO) 0.7 K/uL (0.8-1.0); MONOCYTES % (AUTO) 8.5 % (1.7-9.3); NEUTROPHILS # (AUTO) 5.2 K/uL (1.8-7.7); NEUTROPHILS % (AUTO) 64.9 % (42.2-75.2); PLATELET COUNT (AUTO) 382 K/uL (140-450); RED BLOOD CELL COUNT(AUTO) 3.63 MIL/uL (4.20-6.10); RED CELL DISTRIBUTION WIDTH 16.6 % (11.6-13.7)
--- NOTE | 2020-10-16 07:18 | NUR ---
ENDORSED - PT - STABLE . PT'S RELATIVES VIEWING OVER THE WINDOW .
--- NOTE | 2020-10-16 07:20 | NUR ---
REC'D BEDSIDE ENDORSEMENT FROM NIGHTSHIFT NURSE FOR CONTINUITY OF CARE.
[2020-10-16 08:30] LABS: ALBUMIN 2.6 g/dL (3.4-5.0); ANION GAP 7.4 (8-16); CARBON DIOXIDE 36.7 mmol/L (21-32); CREATININE 0.5 mg/dL (0.6-1.3); MAGNESIUM 2.4 mg/dL (1.8-2.4); PHOSPHORUS 3.9 mg/dL (2.5-4.9); POTASSIUM 4.1 mmol/L (3.5-5.1); TOTAL BILIRUBIN 0.3 mg/dL (0.0-1.0)
[2020-10-16] MEDS: ENOXAPARIN 40 MG/0.4 ML SYR SUBQ SCH (08:59)
[2020-10-16] MEDS: busPIRone 5 MG TAB PO SCH ×2 (08:59→20:20)
--- NOTE | 2020-10-16 09:11 | NUR ---
ADMINISTERED PRESCRIBED MEDS PER MD ORDER. PATIENT TOLERATED WELL. MEDICATION EDUCATION PROVIDED. LEFT HAND IV IS PATENT AND INTACT. PATIENT CURRENTLY EATING BREAKFAST. DENIES PAIN. SAFETY MEASURES IN PLACE. WILL CONT TO MONITOR.
--- NOTE | 2020-10-16 12:00 | NUR ---
HOURLY ROUNDING PERFORMED. PATIENT IN BED. AT WINDOW. PATIENT IS ABLE TO MAKE NEEDS KNOWN. SPO2 91%. NO SIGNS OF DISTRESS. SAFETY MEASURES IN PLACE. WILL CONT TO MONITOR.
[2020-10-16] MEDS: ALBUTEROL SULFATE/IPRATROPIU 3 ML SOL IH SCH ×2 (13:00→19:11)
--- NOTE | 2020-10-16 14:10 | NUR ---
HOURLY ROUNDING PERFORMED. PATIENT IN BED. SPO2 92%. PATIENT IN GOOD SPIRITS. NO SIGNS OF DISTRESS. FAMILY MEMBERS AT WINDOW. SAFETY MEASURES IN PLACE. WILL CONT TO MONITOR.
[2020-10-16 16:00] VITALS: BP 125/80
--- NOTE | 2020-10-16 18:34 | NUR ---
DELIVERED DINNER TRAY TO PATIENT. PATIENT DENIES PAIN, SPO2 90%, NO SIGNS OF DISTRESS. PATIENT ABLE TO MAKE NEEDS KNOWN. FAMILY AT WINDOW. SAFETY MEASURES IN PLACE. WILL CONT TO MONITOR.
--- NOTE | 2020-10-16 19:30 | NUR ---
RECEIVED BEDSIDE REPORT FROM DAY RN. PT IS AAOX4. RESPIRATIONS ARE EQUAL AND UNLABORED ON 6L VIA OXIMIZER. PT DX HYPOXIA, COVID ADMIT ON 08/26. PATIENT SINCE THEN OXYGEN HAS IMPROVE. SKIN IS INTACT. PT ON BEDREST USES URINAL. [facility] WITH POOR INTAKE. IV ON L FA 22G SL. POC IS WEAN OFF O2 TOLERATED. ALL SAFETY MEASURES ARE IN PLACE. CALL LIGHT IS WITHIN REACH. WILL CONTINUE TO MONITOR.
[2020-10-16 20:00] VITALS: BP 131/81
--- NOTE | 2020-10-16 20:20 | NUR ---
VITAL SIGNS ARE WITHIN NORMAL LIMITS. DAUGHTER IS AT WINDOW. PATIENT WAS REPOSITION FOR COMFORT. YUMIKO MEDICATIONS GIVEN PER ORDERS. MED EDUCATION GIVEN. PT VERBALIZED UNDERSTANDING. CALL LIGHT IS WITHIN REACH. WILL CONTINUE TO MONITOR. Addendum: 10/16/20 at 2204 by Alexandra Jay RN RT PLACED PT ON SIMPLE MASK 7L O2 SAT WELL.
--- NOTE | 2020-10-16 22:15 | NUR ---
O2 SAT FLUCTUATE 70-80. NEW PULSE OX APPLIED SAT 92-93% PT NO S/S OF DISTRESS. CALL LIGHT IS WITHIN REACH. WILL CONTINUE TO MONITOR.
--- NOTE | 2020-10-17 | NUR ---
ROUNDS MADE. PT IS SAT WELL 96% ON 7L VIA SIMPLE MASK. NO S/S OF DISTRESS. DAUGHTER AT WINDOW. CALL LIGHT IS WITHIN REACH. WILL CONTINUE TO MONITOR.
--- NOTE | 2020-10-17 01:59 | NUR ---
ROUNDS MADE. PT IS LAYING COMFORTABLY IN BED WITH EYES CLOSED. CHEST RISE AND FALL NOTED. NO S/S OF DISTRESS. ALL NEEDS MET. CALL LIGHT IS WITHIN REACH.
[2020-10-17 04:00] VITALS: BP 125/70
--- NOTE | 2020-10-17 04:00 | NUR ---
VITAL SIGNS ARE WITHIN NORMAL LIMITS. ALL SAFETY MEASURES ARE IN PLACE. WILL CONTINUE TO MONITOR.
--- NOTE | 2020-10-17 06:30 | NUR ---
PATIENT IS SLEEPING COMFORTABLY IN BED PT ON 4L VIA MASK SAT WELL 98%. DAUGHTER REMAINS BY WINDOW SIDE. SAFETY MEASURES ARE IN PLACE. CALL LIGHT IS WITHIN REACH.
--- NOTE | 2020-10-17 07:25 | NUR ---
RECEIVED PT FROM BALL SHAGGER NURSE, PT IS AWAKE RESTING IN BED, ON 4L FACE MASK, IV NOTED TO LFA SALINE LOCK, USE OF URINAL, SAFETY AND FALL PRECAUTIONS IN PLACE, WILL CONTINUE TO MONITOR.
--- NOTE | 2020-10-17 07:30 | NUR ---
GAVE BEDSIDE REPORT TO DAY RN. PT ENDORSED IN STABLE CONDITION.
[2020-10-17] MEDS: busPIRone 5 MG TAB PO SCH ×2 (09:36→21:12)
[2020-10-17] MEDS: DOCUSATE SODIUM 100 MG GELCAP PO PRN (09:37)
[2020-10-17] MEDS: ENOXAPARIN 40 MG/0.4 ML SYR SUBQ SCH (09:38)
--- NOTE | 2020-10-17 09:49 | NUR ---
SCHEDULED MEDICATIONS ADMINISTERED, PT IS SITTING UP IN BED, CONTACTED FNS FOR BREAKFAST TRAY, NO SIGNS OF DISTRESS NOTED, EDUCATION PROVIDED, PT VERBALIZED UNDERSTANDING, WILL CONTINUE TO MONITOR.
--- NOTE | 2020-10-17 11:00 | NUR ---
PT IS RESTING IN BED, IN SITTING POSITION, NO SIGNS OF DISTRESS NOTED, PT VERBALIZED HE HAS NO NEEDS AT THIS TIME, WILL CONTINUE TO MONITOR.
[2020-10-17 16:00] VITALS: BP 106/71
--- NOTE | 2020-10-17 19:05 | NUR ---
ENDORSED PT TO HANGERSMITH NURSE FOR CONTINUITY OF CARE.
--- NOTE | 2020-10-17 19:06 | NUR ---
RECEIVED BEDSIDE REPORT FROM DAY RN. PT IS AAOX4. RESPIRATIONS ARE EQUAL AND UNLABORED ON 5L VIA OXIMIZER. PT DX HYPOXIA, COVID ADMIT ON 08/26. PATIENT SINCE THEN OXYGEN HAS IMPROVE. SKIN IS INTACT. PT ON BEDREST USES URINAL. PT ON [facility] SOFT DIET WITH POOR INTAKE. IV ON L FA 22G SL. POC IS WEAN OFF O2 TOLERATED. ALL SAFETY MEASURES ARE IN PLACE. FAMILY AT WINDOW. CALL LIGHT IS WITHIN REACH. WILL CONTINUE TO MONITOR.
[2020-10-17 20:00] VITALS: BP 121/79
--- NOTE | 2020-10-17 21:12 | NUR ---
VITAL SIGNS ARE STABLE. PT NOW ON SIMPLE MASK 5L SAT WELL 93%. YUMIKO MEDICATION GIVEN PER ORDERS. PT TOLERATED WELL. ALL NEEDS MET. CALL LIGHT IS WITHIN REACH. WILL CONTINUE TO MONITOR.
--- NOTE | 2020-10-17 22:32 | NUR ---
ROUNDS MADE. PT SLEEPING COMFORTABLY IN BED. CHEST RISE AND FALL NOTED. CALL LIGHT IS WITHIN REACH. FAMILY AT WINDOW SIDE.
--- NOTE | 2020-10-17 23:05 | NUR ---
GAVE UPDATE TO DAUGHTER PAUL. ALL QUESTIONS AND CONCERNS ADDRESSED.
--- NOTE | 2020-10-18 00:45 | NUR ---
PATIENT WAS CLEANED AND REPOSITION WITH ASSISTANCE OF NAIL CUTTER, PT DESAT LOW 80S PT BACK 92% ON 5L NC. ALL NEEDS MET. CALL LIGHT IS WITHIN REACH.
--- NOTE | 2020-10-18 02:35 | NUR ---
ROUNDS MADE. PT IS SLEEPING COMFORTABLY IN BED WITH EYES CLOSED. CHEST RISE AND FALL NOTED. NO S/S OF DISTRESS. WILL CONTINUE TO MONITOR.
--- NOTE | 2020-10-18 04:00 | NUR ---
VITAL SIGNS ARE WITHIN NORMAL LIMITS. ALL SAFETY MEASURES ARE IN PLACE. WILL CONTINUE TO MONITOR.
--- NOTE | 2020-10-18 06:12 | NUR ---
MADE ROUNDS PT IS SAT WELL 98% ON 5L NC. REMAINS BY WINDOW. NO S/S OF DISTRESS. WILL CONTINUE TO MONITOR.
--- NOTE | 2020-10-18 07:35 | NUR ---
RECEIVED HANDOFF REPORT FROM NIGHT NURSE. POC DISCUSSED AND REVIEWED. PT IS RESTING AND CALM. DENIES DISCOMFORT OR PAIN. ON 5 L O2 NRM. RR ELEVATED. NO CYANOSIS NOTED. OBTAINED 98% O2 SAT. DENIES CHEST PAIN. NO S/S OF N/V. WILL CONTINUE TO MONITOR.
--- NOTE | 2020-10-18 07:36 | NUR ---
GAVE BEDSIDE REPORT TO DAY RN. PT ENDORSED IN STABLE CONDITION.
--- NOTE | 2020-10-18 07:36 | NUR ---
GAVE BEDSIDE REPORT TO DAY RN. PT ENDORSED IN STABLE CONDITION.
[2020-10-18 08:00] VITALS: BP 126/72
[2020-10-18] MEDS: ENOXAPARIN 40 MG/0.4 ML SYR SUBQ SCH (08:13)
[2020-10-18] MEDS: busPIRone 5 MG TAB PO SCH ×2 (08:46→20:06)
[2020-10-18 09:09] LABS: BASOPHILS % (AUTO) 0.5 % (0.0-2.0); EOSINOPHILS # (AUTO) 0.3 K/uL (0-0.4); EOSINOPHILS % (AUTO) 3.3 % (0.0-4.0); HEMATOCRIT 34.7 % (36-52); HEMOGLOBIN 11.1 g/dL (12.0-18.0); LYMPHOCYTES # (AUTO) 2.1 K/uL (2.0-11.5); LYMPHOCYTES % (AUTO) 21.3 % (20.5-51.1); MEAN CORPUSCULAR HEMOGLOBIN 30 pg (27-31); MEAN CORPUSCULAR HGB CONC 32 g/dL (33-37); MEAN CORPUSCULAR VOLUME 94.9 fL (80-94); MONOCYTES # (AUTO) 0.7 K/uL (0.8-1.0); MONOCYTES % (AUTO) 6.6 % (1.7-9.3); NEUTROPHILS # (AUTO) 6.7 K/uL (1.8-7.7); NEUTROPHILS % (AUTO) 68.3 % (42.2-75.2); PLATELET COUNT (AUTO) 386 K/uL (140-450); RED BLOOD CELL COUNT(AUTO) 3.66 MIL/uL (4.20-6.10); RED CELL DISTRIBUTION WIDTH 16.7 % (11.6-13.7); WHITE BLOOD COUNT (AUTO) 9.9 K/uL (4.8-10.8)
[2020-10-18 10:23] LABS: CREATININE 0.5 mg/dL (0.6-1.3); POTASSIUM 5.2 mmol/L (3.5-5.1)
--- NOTE | 2020-10-18 11:22 | NUR ---
RECEIVED REPORT FROM PHYSICAL THERAPIST. PT RESTING AND CALM AFTER PT. PT IS ON 6L O2 VIA NRM WITH NO RESPIRATORY DISTRESS. PT WAS PLACED ON 12L O2 DURING PT AND OBTAINED 94% O2 SAT WITH EXERTION . WILL CONTINUE TO MONITOR.
[2020-10-18 11:40] LABS: ANION GAP 3.8 (8-16); CARBON DIOXIDE 42.4 mmol/L (21-32)
[2020-10-18 12:00] VITALS: BP 120/78
[2020-10-18 16:00] VITALS: BP 105/76
[2020-10-18] MEDS: ALBUTEROL SULFATE/IPRATROPIU 3 ML SOL IH SCH (19:00)
--- NOTE | 2020-10-18 19:23 | NUR ---
ENDORSED PT TO COFFEE WEIGHER RN. PT IS STABLE. NO CHANGE OF CONDITION. POC DISCUSSED AND REVIEWED.
--- NOTE | 2020-10-18 19:24 | NUR ---
RECEIVED BEDSIDE REPORT FROM DAY RN. PT IS AAOX4. RESPIRATIONS ARE EQUAL AND UNLABORED ON 6L VIA SIMPLE MASK SAT WELL 97%. PT DX HYPOXIA, COVID ADMIT ON 08/26. PATIENT SINCE THEN OXYGEN HAS IMPROVE. SKIN IS INTACT. PT ON BEDREST USES URINAL. PT ON [facility] SOFT DIET WITH POOR INTAKE. FAMILY BROUGHT IN SOUP. DAUGHTER BY WINDOW. IV ON L FA 22G SL. POC IS WEAN OFF O2 TOLERATED. ALL SAFETY MEASURES ARE IN PLACE. FAMILY AT WINDOW. CALL LIGHT IS WITHIN REACH. WILL CONTINUE TO MONITOR.
[2020-10-18 20:00] VITALS: BP 121/79
--- NOTE | 2020-10-18 20:06 | NUR ---
VITAL SIGNS ARE STABLE. YUMIKO MEDICATIONS GIVEN PER ORDERS. FAMILY AT BEDSIDE. CALL LIGHT IS WITHIN REACH. WILL CONTINUE TO MONITOR.
[2020-10-18] MEDS: guaiFENesin DM 200/20 MG-10 ML 10 ML UDC PO PRN (20:08)
--- NOTE | 2020-10-18 22:00 | NUR ---
PATIENT WAS CLEANED AND REPOSITION FOR COMFORT. FAMILY REMAINS BY WINDOW. ALL NEEDS MET. WILL CONTINUE TO MONITOR.
--- NOTE | 2020-10-19 | NUR ---
MADE ROUNDS. PT IS SLEEPING IN BED WITH EYES CLOSED. CHEST RISE AND FALL NOTED. ALL SAFETY MEASURES ARE IN PLACE. CALL LIGHT IS WITHIN REACH. WILL CONTINUE TO MONITOR.
[2020-10-19] MEDS: ALBUTEROL SULFATE/IPRATROPIU 3 ML SOL IH SCH ×4 (01:00→19:30)
--- NOTE | 2020-10-19 02:04 | NUR ---
PATIENT SLEEPING IN BED WITH EYES CLOSED. CHEST RISE AND FALL NOTED. NO S/S OF DISTRESS. WILL CONTINUE TO MONITOR.
[2020-10-19 04:00] VITALS: BP 110/75
--- NOTE | 2020-10-19 04:00 | NUR ---
VITAL SIGNS ARE WITHIN NORMAL LIMITS. ALL SAFETY MEASURES ARE IN PLACE.
--- NOTE | 2020-10-19 07:00 | NUR ---
PT TITRATED DOWN TO 4L VIA NC SAT WELL 95%. WILL CONTINUE TO MONITOR.
--- NOTE | 2020-10-19 07:30 | NUR ---
RECEIVED BEDSIDE REPORT FROM BONDERITE OPERATOR RN FOR CONTINUITY OF CARE. PATIENT RESTING IN BED WITH LEFT LATERAL POSITION. WITH 4L NC. O2 SAT 98%, HR 87. PT'S AT SIDE OF THE WINDOW. NO ACUTE DISTRESS NOTED AT THIS TIME. WILL CONTINUE TO MONITOR.
--- NOTE | 2020-10-19 07:39 | NUR ---
GAVE BEDSIDE REPORT TO DAY RN. PT ENDORSED IN STABLE CONDITION.
[2020-10-19 08:00] VITALS: BP 119/74
[2020-10-19] MEDS: busPIRone 5 MG TAB PO SCH (08:47)
[2020-10-19] MEDS: DOCUSATE SODIUM 100 MG GELCAP PO PRN (08:49)
[2020-10-19] MEDS: ENOXAPARIN 40 MG/0.4 ML SYR SUBQ SCH (08:50)
--- NOTE | 2020-10-19 09:05 | NUR ---
SCHEDULED MEDICATIONS GIVEN. EDUCATION PROVIDED. ASSISTED PATIENT WITH BREAKFAST TRAY. PATIENT STATED COUGH AND DESATURATED TO 80% WITH 4L. PATIENT ABLE TO PERFORM ORAL SUCTION. INCREASED O2 TO 8L. O2 SAT INCREASED TO 91% AFTER 10 MINS. WAITED ANOTHER 3 MINS, TURNED THE O2 TO 6L, O2 SAT 92%, PATIENT IS READY TO HAVE BREAKFAST. UPDATED WITH PT'S . WILL CONTINUE TO MONITOR THE PATIENT AND WEAN OFF THE OXYGEN.
[2020-10-19] MEDS: guaiFENesin DM 200/20 MG-10 ML 10 ML UDC PO PRN ×2 (11:50→21:32)
--- NOTE | 2020-10-19 11:53 | NUR ---
COUGH SYRUP GIVEN FOR COUGH. O2 SAT 90% WITH 6L NC. HR 108. INFORMED PATIENT TO RELAX AND TAKE SOME DEEP BREATHE. EMPTIED URINAL WITH ORANGE COLOR 300ML URINE. INFORMED PATIENT TO INCREASE FLUID INTAKE. VERBALIZED UNDERSTANDING. WILL CONTINUE TO MONITOR.
[2020-10-19 12:31] LABS: BASOPHILS % (AUTO) 0.4 % (0.0-2.0); EOSINOPHILS # (AUTO) 0.1 K/uL (0-0.4); EOSINOPHILS % (AUTO) 1.3 % (0.0-4.0); HEMATOCRIT 32.7 % (36-52); HEMOGLOBIN 10.7 g/dL (12.0-18.0); LYMPHOCYTES # (AUTO) 1.1 K/uL (2.0-11.5); LYMPHOCYTES % (AUTO) 10.5 % (20.5-51.1); MEAN CORPUSCULAR HEMOGLOBIN 31 pg (27-31); MEAN CORPUSCULAR HGB CONC 33 g/dL (33-37); MEAN CORPUSCULAR VOLUME 94.1 fL (80-94); MONOCYTES # (AUTO) 0.6 K/uL (0.8-1.0); MONOCYTES % (AUTO) 5.2 % (1.7-9.3); NEUTROPHILS # (AUTO) 8.8 K/uL (1.8-7.7); NEUTROPHILS % (AUTO) 82.6 % (42.2-75.2); PLATELET COUNT (AUTO) 384 K/uL (140-450); RED BLOOD CELL COUNT(AUTO) 3.47 MIL/uL (4.20-6.10); RED CELL DISTRIBUTION WIDTH 16.7 % (11.6-13.7); WHITE BLOOD COUNT (AUTO) 10.6 K/uL (4.8-10.8)
[2020-10-19 12:50] LABS: ANION GAP 0.2 (8-16); CREATININE 0.6 mg/dL (0.6-1.3)
[2020-10-19 13:20] LABS: CARBON DIOXIDE 43.4 mmol/L (21-32)
[2020-10-19 13:21] LABS: POTASSIUM 5.6 mmol/L (3.5-5.1)
--- NOTE | 2020-10-19 14:38 | NUR ---
10/19/20 RD FOLLOW UP COMPLETED PLEASE REFER TO NUTRITION ASSESSMENT UNDER CARE ACTIVITY FOR ESTIMATED NUTRITIONAL NEEDS. 1. RECOMMEND SOFT DIET TOLERATED 2. RECOMMEND ENSURE BID 3. ENCOURAGE PO INTAKE ABOVE 75% 4. RD TO FOLLOW-UP IN 3-5 DAYS PATIENT IS MODERATE RISK. ROSARIO ROSARIO RD
[2020-10-19] MEDS ORDERED: SODIUM ZIRCONIUM CYCLOSILICATE 10 GM POWD.PACK PO SCH (15:00)
--- NOTE | 2020-10-19 15:15 | NUR ---
PATIENT RESTING IN BED, CALM. O2 SAT 97%. DECREASED O2 TO 4L, PATIENT TOLERATED WELL. WILL CONTINUE TO MONITOR.
[2020-10-19 16:00] VITALS: BP 118/72
--- NOTE | 2020-10-19 16:15 | NUR ---
REPORTED ABG RESULTS TO DR YUAN. KEEP SAT BETWEEN 88-90%. PT IS ON 4L NC, SPO2 88%.
[2020-10-19] MEDS: NACL 0.9% 1,000 ML IV SCH (17:30)
--- NOTE | 2020-10-19 17:38 | NUR ---
STARTED IVF NS PER MD ORDER. PATIENT REMAIN CALM. O2 SAT 96-99% WITH 4L NC. PATIENT'S DAUGHTER AT SIDE BY THE WINDOW. INFORMED PATIENT TO RELAX AND TAKE DEEP BREATHE, VERBALIZED UNDERSTANDING. WILL CONTINUE TO MONITOR.
--- NOTE | 2020-10-19 19:10 | NUR ---
RECEIVED BEDSIDE REPORT FROM DAY SHIFT NURSE FOR CONTINUITY OF CARE. PT IS AWAKE AND ALERT. A&OX4. ON 4L O2 NC WITH BREATHING UNLABORED. URINAL IS AT THE BEDSIDE FOR VOIDING. SKIN IS WARM, DRY, AND INTACT. LAST BM WAS YESTERDAY PER DAY SHIFT NURSE. IV IS IN THE LEFT FOREARM 22 GAUGE RUNNING NS AT 100 ML PER HOUR PER ORDER. PT IS STABLE AT THIS TIME. PLAN OF CARE DISCUSSED.
--- NOTE | 2020-10-19 19:16 | NUR ---
ENDORSED PATIENT TO TABLE HAND RN FOR CONTINUITY OF CARE. PATIENT IN STABLE CONDITION WITH 4L NC. FAMILY MEMBERS AT SIDE BY THE WINDOW.
[2020-10-19 20:00] VITALS: BP 133/81
--- NOTE | 2020-10-19 21:32 | NUR ---
PT WAS COUGHING CONTINUOUSLY. PT WAS GIVEN ROBITUSSIN. COUGH WAS NONPRODUCTIVE. WILL MONITOR FOR COUGH.
--- NOTE | 2020-10-19 23:30 | NUR ---
ROUNDED ON PT. HE IS SLEEPING. NC IN PLACE WITH 4L O2. BREATHING UNLABORED. CHEST RISE AND FALL SYMMETRICAL. PT STABLE.
[2020-10-20] MEDS: ALBUTEROL SULFATE/IPRATROPIU 3 ML SOL IH SCH ×4 (01:00→20:40)
--- NOTE | 2020-10-20 01:30 | NUR ---
PT IS ASLEEP IN SEMI FOWLERS POSITION. NO RESPIRATORY DISTRESS NOTED. O2 SAT AT 98%. WILL CONTINUE TO MONITOR.
[2020-10-20] MEDS: NACL 0.9% 1,000 ML IV SCH ×4 (02:15→22:46)
--- NOTE | 2020-10-20 03:30 | NUR ---
EMPTIED THE URINAL WITH CLEAR, YELLOW URINE. PT IS AWAKE AND SPEAKING APPROPRIATELY. O2 SAT IS 98% ON 4L O2 NC. PT APPEARS TO BE COMFORTABLE WITH NO DISTRESS.
[2020-10-20 04:00] VITALS: BP 104/68
--- NOTE | 2020-10-20 05:30 | NUR ---
PT IS SLEEPING. CHEST RISE AND FALL IS SYMMETRICAL. FLUIDS ARE INFUSING. IV IS PATENT. NO RESPIRATORY DISTRESS NOTED. PT IS STABLE.
--- NOTE | 2020-10-20 07:10 | NUR ---
ENDORSED PT TO DAY SHIFT NURSE FOR CONTINUITY OF CARE. PT IS ASLEEP. O2 SAT IS 100% ON 4L O2 NC. PT IS STABLE. PLAN OF CARE DISCUSSED.
--- NOTE | 2020-10-20 07:11 | NUR ---
RECEIVED BEDSIDE REPORT FROM SHERIFF'S OFFICER NURSE FOR CONTINUITY OF CARE. PT IS ASLEEP ON HIS RT SIDE. A&OX4. ON 4L O2 NC WITH BREATHING UNLABORED, O2 SATURATION 100%, NO S/S OF DISTRESS OR SOB NOTED. URINAL IS AT THE BEDSIDE FOR VOIDING. SKIN IS WARM, DRY, AND INTACT. LAST BM WAS 10/19 PER SHERIFF'S OFFICER NURSE. IV IS IN THE LEFT FOREARM 22 GAUGE RUNNING NS AT 100 ML PER HOUR PER ORDER. PT IS STABLE AT THIS TIME. CALL LIGHT WITHIN REACH, WILL CONTINUE TO MONITOR PATIENT.
[2020-10-20 08:00] VITALS: BP 130/71
[2020-10-20 08:18] LABS: BASOPHILS # (AUTO) 0.1 K/uL (0.00-0.22); BASOPHILS % (AUTO) 0.7 % (0.0-2.0); EOSINOPHILS # (AUTO) 0.4 K/uL (0-0.4); EOSINOPHILS % (AUTO) 3.9 % (0.0-4.0); HEMATOCRIT 29.9 % (36-52); HEMOGLOBIN 9.7 g/dL (12.0-18.0); LYMPHOCYTES # (AUTO) 2.1 K/uL (2.0-11.5); LYMPHOCYTES % (AUTO) 22.8 % (20.5-51.1); MEAN CORPUSCULAR HEMOGLOBIN 31 pg (27-31); MEAN CORPUSCULAR HGB CONC 32 g/dL (33-37); MEAN CORPUSCULAR VOLUME 94.2 fL (80-94); MONOCYTES # (AUTO) 0.8 K/uL (0.8-1.0); MONOCYTES % (AUTO) 8.2 % (1.7-9.3); NEUTROPHILS % (AUTO) 64.4 % (42.2-75.2); PLATELET COUNT (AUTO) 325 K/uL (140-450); RED BLOOD CELL COUNT(AUTO) 3.17 MIL/uL (4.20-6.10); RED CELL DISTRIBUTION WIDTH 16.3 % (11.6-13.7); WHITE BLOOD COUNT (AUTO) 9.3 K/uL (4.8-10.8)
--- NOTE | 2020-10-20 08:35 | NUR ---
DR YUAN IN TO SEE PATIENT. AT WINDOW. DR. YUAN UPDATED WITH PLAN OF CARE. SHE AND PT VERBALIZED UNDERSTANDING. PT HAS NO COMPLAINTS AT THIS TIME. CALL LIGHT WITHIN REACH, WILL CONTINUE TO MONITOR PATIENT.
[2020-10-20] MEDS: ENOXAPARIN 40 MG/0.4 ML SYR SUBQ SCH (09:12)
[2020-10-20 09:39] LABS: ANION GAP 5.3 (8-16); CARBON DIOXIDE 38.8 mmol/L (21-32); CREATININE 0.5 mg/dL (0.6-1.3); POTASSIUM 4.1 mmol/L (3.5-5.1)
--- NOTE | 2020-10-20 11:43 | NUR ---
ACTUAL TIME OF ADMINISTRATION OF [facility] THERAPY AND RESPIRATORY DRUG IS 0804 PREVENTION SPECIALIST TO MONITOR OXYGEN SATURATION AND TITRATE TOLERATED
[2020-10-20] MEDS: guaiFENesin DM 200/20 MG-10 ML 10 ML UDC PO PRN ×2 (13:27→22:41)
--- NOTE | 2020-10-20 13:50 | NUR ---
NICOLASA SAINI GAVE PT BEDBATH. PT INFORMED NICOLASA THAT FAMILY IS "CONSTANTLY WATCHING SO I DON'T WANT TO CALL YOU GUYS FOR HELP", PT HAD BM. CLEANED AND NOW REPOSITIONED FOR COMFORT. NO COMPLAINTS AT THIS TIME. WILL CONTINUE TO MONITOR PATIENT.
--- NOTE | 2020-10-20 14:30 | NUR ---
RESTING COMFORTABLY GOOD CHEST RISE SATURATION 96% ON SUPPLEMENTAL OXYGEN AT 4 LPM VIA NC TITRATED FIO2 TO 3.5 LPM
[2020-10-20 16:00] VITALS: BP 126/81
--- NOTE | 2020-10-20 19:09 | NUR ---
GAVE REPORT TO CERAMIC PAINTER NURSE AT BEDSIDE FOR CONTINUITY OF CARE. PATIENT RESTING IN BED, FAMILY BY WINDOW. PT IN STABLE CONDITION.
--- NOTE | 2020-10-20 19:10 | NUR ---
RECEIVED BEDSIDE REPORT FROM DAY SHIFT NURSE FOR CONTINUITY OF CARE. PT IS AWAKE AND ALERT, A&OX4. ON 4L O2 NC WITH BREATHING UNLABORED. URINAL AT THE BEDSIDE FOR VOIDING. SKIN IS WARM, DRY, AND INTACT. IV IS IN THE LEFT FOREARM 22 GAUGE RUNNING NS AT 100 ML PER HOUR PER ORDER. PT IS STABLE. PLAN OF CARE DISCUSSED.
[2020-10-20 20:00] VITALS: BP 138/85
--- NOTE | 2020-10-20 21:00 | NUR ---
ROUNDED ON PT. HE IS AWAKE. STATES HE IS OKAY RIGHT NOW. WATER WAS PROVIDED. DINNER WAS CLEARED, PT ATE 50% OF FOOD. NO RESPIRATORY DISTRESS NOTED.
--- NOTE | 2020-10-20 22:42 | NUR ---
PT STATED HE HAS BEEN COUGHING A LOT AND WOULD LIKE COUGH MEDICINE. PT WAS GIVEN ROBITUSSIN ORDERED FOR COUGH. WILL CONTINUE TO MONITOR. O2 SAT IS 94% ON 6L O2 NC.
--- NOTE | 2020-10-21 00:05 | NUR ---
URINAL EMPTIED 300 ML OF CLEAR, YELLOW URINE. PT IS STABLE. SPEAKING APPROPRIATELY. O2 SAT IS 93% ON 5L O2 NC.
[2020-10-21] MEDS: ALBUTEROL SULFATE/IPRATROPIU 3 ML SOL IH SCH ×4 (01:00→19:00)
--- NOTE | 2020-10-21 02:00 | NUR ---
PT IS SLEEPING. TITRATED THE OXYGEN DOWN TO 4L O2 NC. PT TOLERATING THIS WELL WITH O2 SAT AT 95%. BREATHING IS REGULAR AND UNLABORED. URINAL WAS EMPTIED OF 300 ML OF URINE. PT IS STABLE.
--- NOTE | 2020-10-21 04:00 | NUR ---
ROUNDED ON PT. HE IS SLEEPING. NO SOB OR COUGHING NOTED. BREATHING IS UNLABORED. O2 SAT IS STABLE, 98%. WILL CONTINUE TO MONITOR.
--- NOTE | 2020-10-21 05:45 | NUR ---
TITRATED OXYGEN DOWN TO 3L O2 NC. PT IS TOLERATING IT WELL. MONITORED PT FOR TEN MINUTES. NO SIGNS OF DISTRESS. O2 SAT IS 96%. NO LABORED BREATHING VISIBLE. URINAL WAS EMPTIED. AIR CONDITIONER ADJUSTED PER REQUEST.
--- NOTE | 2020-10-21 07:15 | NUR ---
ENDORSED PT TO DAY SHIFT NURSE FOR CONTINUITY OF CARE. PT IS STABLE AT THIS TIME. O2 SAT IS 94% ON 3L O2 NC. PLAN OF CARE DISCUSSED.
[2020-10-21 08:00] VITALS: BP 152/89
--- NOTE | 2020-10-21 08:00 | NUR ---
Received report from nightshift RN. Patient awake in bed on 3L NC satting 91-94%. Introduced self and role. Will continue to monitor.
[2020-10-21] MEDS: NACL 0.9% 1,000 ML IV SCH ×2 (09:16→18:08)
[2020-10-21 09:26] LABS: BASOPHILS % (AUTO) 0.5 % (0.0-2.0); EOSINOPHILS # (AUTO) 0.4 K/uL (0-0.4); EOSINOPHILS % (AUTO) 4.3 % (0.0-4.0); HEMATOCRIT 31.6 % (36-52); HEMOGLOBIN 10.2 g/dL (12.0-18.0); LYMPHOCYTES # (AUTO) 1.9 K/uL (2.0-11.5); LYMPHOCYTES % (AUTO) 20.6 % (20.5-51.1); MEAN CORPUSCULAR HEMOGLOBIN 30 pg (27-31); MEAN CORPUSCULAR HGB CONC 32 g/dL (33-37); MONOCYTES # (AUTO) 0.7 K/uL (0.8-1.0); MONOCYTES % (AUTO) 7.8 % (1.7-9.3); NEUTROPHILS % (AUTO) 66.8 % (42.2-75.2); PLATELET COUNT (AUTO) 340 K/uL (140-450); RED BLOOD CELL COUNT(AUTO) 3.36 MIL/uL (4.20-6.10); RED CELL DISTRIBUTION WIDTH 16.5 % (11.6-13.7); WHITE BLOOD COUNT (AUTO) 9.1 K/uL (4.8-10.8)
[2020-10-21] MEDS: ENOXAPARIN 40 MG/0.4 ML SYR SUBQ SCH (09:28)
[2020-10-21 09:59] LABS: ANION GAP 9.3 (8-16); CARBON DIOXIDE 35.6 mmol/L (21-32); CREATININE 0.4 mg/dL (0.6-1.3); POTASSIUM 3.9 mmol/L (3.5-5.1)
--- NOTE | 2020-10-21 13:12 | NUR ---
Rounded on patient. Patient sleeping. Urinal emptied 300ml yellow clear urine. numerous family member outside patients window.
[2020-10-21 16:00] VITALS: BP 149/56
[2020-10-21] MEDS: guaiFENesin DM 200/20 MG-10 ML 10 ML UDC PO PRN (18:08)
--- NOTE | 2020-10-21 19:10 | NUR ---
Report endorsed to kendal Joseph for continuity of care.
--- NOTE | 2020-10-21 19:15 | NUR ---
RECEIVED REPORT AT BEDSIDE FOR CONTINUITY OF CARE, PT IN STABLE CONDITION.
--- NOTE | 2020-10-21 20:00 | NUR ---
PT IN BED AOX3-4 WITH 4 LITERS RUNNING VIA N/C. PT HAS NORMAL SALINE RUNNING AT 100MLS/HR. VIA LFA 22G. PT HAS URINAL AT BEDSIDE. PT OFFERED COLACE FOR CONSTIPATION, BUT DECLINED TO TAKE IT SAYING IT DOESN'T WORK. PT ABDOMEN IS SOFT AND NON DISTENDED, BOWEL SOUNDS HYPOACTIVE. V/S FOLLOWS: T 98.1 P 90 R 20 B/P 145/96 02 98%ON 4 LITERS VIA N/C. PT ALSO HAS MASK AT BEDSIDE RUNNING 6 LITERS AND SUCTION WITH MARIKAUER IN REACH. ALL REQUESTED NEEDS ATTENDED BY STAFF.
--- NOTE | 2020-10-21 20:30 | NUR ---
PT WAS TURNED, CHANGED AND REPOSITIONED IN BED WITH ASSISTANCE. ALL REQUESTED NEEDS ATTENDED BY STAFF.
--- NOTE | 2020-10-21 22:30 | NUR ---
PT IN BED ASLEEP WITH 4 LITERS RUNNING VIA N/C.
[2020-10-22] VITALS: BP 146/74
--- NOTE | 2020-10-22 00:30 | NUR ---
PT IN BED AWAKE, REQUESTING TO BE ASSISTED TO MOVE UP IN BED. PT USED MASK DUE TO SOB MOVING AROUND THE BED, UNTIL ABLE TO CATCH HIS BREATH ON HIS OWN. ALL REQUESTED NEEDS ATTENDED BY STAFF AND CALL VERONICA IN REACH. V/S FOLLOWS: T 98.6 P 95 R 22 B/P 146/74 02 99% WITH N/C RUNNING AT 4 LITERS (SUPPLEMENTED WITH MASK AT 6 LITERS ). DAUGHTER PAUL CALLED AND WAS UPDATED ON PT CONDITION.
[2020-10-22] MEDS: ALBUTEROL SULFATE/IPRATROPIU 3 ML SOL IH SCH ×4 (01:00→20:40)
--- NOTE | 2020-10-22 02:53 | NUR ---
PT RESTING IN BED HE WAS TURNED AND REPOSITIONED IN BED. FAMILY OUTSIDE WINDOW, C/O PT COUGHING A LOT. COUGH MEDICATION D/C'D DUE TO DATE TEXTED RODDING ANODE WORKER MD CERON TO RENEW ORDER.
--- NOTE | 2020-10-22 02:57 | NUR ---
MD OSMANY GUAN TO RENEW ORDER. NEW ORDER PLACED.
[2020-10-22] MEDS: guaiFENesin DM 200/20 MG-10 ML 10 ML UDC PO PRN ×2 (03:22→21:34)
--- NOTE | 2020-10-22 03:22 | NUR ---
PT GIVEN PO/PRN REQUESTED COUGH MEDICATION .
--- NOTE | 2020-10-22 05:00 | NUR ---
PT ASLEEP IN BED, ALL ORDERED PROTOCOLS IN PLACE.
[2020-10-22 06:14] LABS: BASOPHILS # (AUTO) 0.1 K/uL (0.00-0.22); BASOPHILS % (AUTO) 0.6 % (0.0-2.0); EOSINOPHILS # (AUTO) 0.3 K/uL (0-0.4); EOSINOPHILS % (AUTO) 3.8 % (0.0-4.0); HEMATOCRIT 31.2 % (36-52); HEMOGLOBIN 10.1 g/dL (12.0-18.0); LYMPHOCYTES # (AUTO) 2.1 K/uL (2.0-11.5); MEAN CORPUSCULAR HEMOGLOBIN 30 pg (27-31); MEAN CORPUSCULAR HGB CONC 32 g/dL (33-37); MEAN CORPUSCULAR VOLUME 93.2 fL (80-94); MONOCYTES # (AUTO) 0.7 K/uL (0.8-1.0); MONOCYTES % (AUTO) 7.9 % (1.7-9.3); NEUTROPHILS # (AUTO) 5.9 K/uL (1.8-7.7); NEUTROPHILS % (AUTO) 64.7 % (42.2-75.2); PLATELET COUNT (AUTO) 341 K/uL (140-450); RED BLOOD CELL COUNT(AUTO) 3.35 MIL/uL (4.20-6.10); WHITE BLOOD COUNT (AUTO) 9.1 K/uL (4.8-10.8)
[2020-10-22 07:14] LABS: ANION GAP 9.1 (8-16); CARBON DIOXIDE 34.3 mmol/L (21-32); CREATININE 0.3 mg/dL (0.6-1.3); POTASSIUM 3.4 mmol/L (3.5-5.1)
--- NOTE | 2020-10-22 07:30 | NUR ---
RECEIVED REPORT FROM NIGHTSCOFT RN. IMMEDIATELY AFTER REPORT, FAMILY CALLED TO REPORT LOW O2. ENTERED ROOM RIGHT AWAY AND SAW O2 OF 47%, PATIENT WITH LABORED RESPIRATION, INCREASED RR, AND SWEATING SIGNIFICANTLY. ASSESSED PATIENT AND EQUIPMENT AND FOUND O2 WAS OFF. PLACED PATIENT BACK ON 5 L NC AND SIMPLE MASK AT 10 LITERS UNTIL 02 REACHED 95%. HR WAS 121, BP WAS 148/101. SETTLED PATIENT AND FAMILY. CONTINUE TO MONITOR. Addendum: 10/22/20 at 1925 by Agency 11 RN RN O2 WAS FOUND TURNED OFF AFTER 0700 RESPIRATORY TREATMENT, PRIOR TO RN CHANGE OF SHIFT
[2020-10-22 08:00] VITALS: BP 151/70
[2020-10-22] MEDS: NACL 0.9% 1,000 ML IV SCH ×2 (08:09→23:11)
[2020-10-22] MEDS: ENOXAPARIN 40 MG/0.4 ML SYR SUBQ SCH (08:16)
--- NOTE | 2020-10-22 12:15 | NUR ---
ROUNDS MADE ON PATIENT, PATIENT HAD BM. CLEANED UP PATIENT. NOW ON 5L NC ONLY. ANXIETY IMPROVED. O2 REMAINS 90-96%.
[2020-10-22 15:43] VITALS: BP 133/79
--- NOTE | 2020-10-22 16:12 | NUR ---
ROUNDS MADE. WENT IN ROOM TO CHANGE SHEETS AND GIVE PATIENT A BED BATH. PATIENT DID NOT WANT FULL SHEET CHANGE AND FULL BATH. WASHED PATIENTS FACE AND HANDS. CHANGED PILLOW CASE COVERS. PATIENT SATTING 97% ON 4L NC.
--- NOTE | 2020-10-22 19:20 | NUR ---
RECEIVED BEDSIDE REPORT FROM DAY SHIFT NURSE FOR CONTINUITY OF CARE. PT IS AWAKE AND ALERT, A&OX4. ON 4L O2 NC WITH BREATHING UNLABORED. O2 SAT IS 96%. PT IS TALKING APPROPRIATELY. BEDREST. URINAL AT THE BEDSIDE FOR VOIDING. SKIN IS WARM, DRY, AND INTACT. LAST BM WAS TODAY PER DAY SHIFT NURSE. IV IS IN THE LEFT FOREARM RUNNING NS ORDERED. PLAN OF CARE DISCUSSED. WILL CONTINUE TO MONITOR.
--- NOTE | 2020-10-22 19:25 | NUR ---
REPORT GIVEN TO NIGHTSHIFT RN TO ENDORSE CONTINUITY OF CARE
[2020-10-22 20:00] VITALS: BP 156/90
[2020-10-22] MEDS ORDERED: POTASSIUM CHLORIDE 10 MEQ TABER PO SCH (21:25)
--- NOTE | 2020-10-22 21:25 | NUR ---
CONTACTED DR. BEDOLLA TO INFORM HIM THAT THE POTASSIUM LEVEL IS 3.4. HE ORDERED A ONE TIME DOSE OF KDUR 40 MEQ. WILL ADMINISTER ONCE VERIFIED.
--- NOTE | 2020-10-22 21:34 | NUR ---
PT WAS GIVEN ROBITUSSIN REQUESTED FOR COUGH. PT WAS COUGHING CONSISTENTLY. NONPRODUCTIVE AT THE MOMENT. WILL CONTINUE TO MONITOR. K DUR [address] BY [address] BEDOLLA. POTASSIUM LEVEL IS 3.4.
--- NOTE | 2020-10-22 23:30 | NUR ---
PT WAS REPOSITIONED UPRIGHT. PT TURNED ON SIDE TO SLEEP. O2 SAT IS 94% ON 2L O2 NC. BREATHING IS UNLABORED. IV FLUIDS ARE INFUSING.
[2020-10-23] MEDS: ALBUTEROL SULFATE/IPRATROPIU 3 ML SOL IH SCH ×2 (01:00→19:00)
--- NOTE | 2020-10-23 01:30 | NUR ---
PT IS ASLEEP AT A 40 DEGREE ANGLE IN BED. NC IS AT 4L O2. BREATHING IS UNLABORED AT REST. O2 SAT IS 95%. WILL CONTINUE TO MONITOR.
--- NOTE | 2020-10-23 03:30 | NUR ---
PT HAD A BM IN DIAPER AND WAS CHANGED. BM WAS HARD AND FORMED. NEW LINENS WERE PLACED. PT DESATURATED WITH MOVEMENT TO 80%. AFTER MOVEMENT PT PLACED ON SIMPLE MASK. O2 SAT IS NOW 98% ON 4L O2. PT IS STABLE. IV FLUID BAG WAS CHANGED. WILL CONTINUE TO MONITOR.
[2020-10-23 04:00] VITALS: BP 135/88
--- NOTE | 2020-10-23 05:30 | NUR ---
ROUNDED ON PT. HE IS ASLEEP. NO RESPIRATORY DISTRESS NOTED. NC IN PLACE AT 4L O2. O2 SAT IS 95%. BREATHING IS UNLABORED. BEDSIDE TABLE IS WITHIN REACH. IV FLUIDS ARE INFUSING. PT IS STABLE AT THIS TIME.
--- NOTE | 2020-10-23 07:10 | NUR ---
ENDORSED PT TO DAY SHIFT NURSE FOR CONTINUITY OF CARE. PT IS STABLE AT THIS TIME. ASLEEP WITH O2 SAT AT 100%. PLAN OF CARE DISCUSSED.
--- NOTE | 2020-10-23 07:25 | NUR ---
HANDOFF REPORT RECEIVED FROM GLUE SPRAYER POC REVIEWED AND DISCUSSED. PT IS RESTING, EYES OPEN. DENIES PAIN. BM X1. RENDERED AM CARE. RR RATE ELEVATED WHEN TURN AND EXERTION. NO SIGNS OF CYANOSIS. SATING AT 94 TO 986% Addendum: 10/23/20 at 1021 by Rahul Trujillo RN SATING AT 94 TO 96%. WILL CONTINUE TO MONITOR.
[2020-10-23 08:00] VITALS: BP 144/81
[2020-10-23] MEDS: ENOXAPARIN 40 MG/0.4 ML SYR SUBQ SCH (08:48)
[2020-10-23] MEDS: NACL 0.9% 1,000 ML IV SCH ×2 (10:15→20:15)
[2020-10-23 16:00] VITALS: BP 122/87
[2020-10-23] MEDS: guaiFENesin DM 200/20 MG-10 ML 10 ML UDC PO PRN (16:35)
--- NOTE | 2020-10-23 19:20 | NUR ---
HANDOFF REPORT GIVEN TO FOLDER INSPECTOR NURSE. POC DISCUSSED AND REVIEWED. PT IS STABLE. NO S/S OF DISTRESS NOTED.
--- NOTE | 2020-10-23 19:21 | NUR ---
RECD. RESTING IN BED, AWAKE, A/OX4. WITH OCCASIONAL SOB NOTED, LUNG SOUNDS DIMINISHED ON BILATERAL AUSCULTATION. IV OF NS AT 100 ML/HR INFUSING, LEFT FOREARM G22. PATIENT IS ON 4 LITERS N/C BUT SATURATING 84 - 88%. ALSO PUTS ON 5 [id number] NON-REBREATHER MASK AND 02 SAT INCREASED TO 94, WILL CALL RT TO ADJUST SOURCE OF OXYGENATION. INSTRUCTED TO ALTERNATELY TURN TO THE RIGHT OR LEFT AND ALWAYS ON HIS BACK, USES THE URINAL. REMINDED TO TRY TO USE INCENTIVE SPIROMETER AT THE BEDSIDE. PLAN OF CARE DISCUSSED WITH OLIVE DISA TO THE PATIENT, VERBALIZED UNDERSTANDING. DENIES PAIN 0/10 AT THIS TIME. Addendum: 10/23/20 at 2147 by Radhika Sorto LVN PT PUTS ON SIMPLE MASK AT 5 LITERS NOT NON REBREATHER MASK.
--- NOTE | 2020-10-23 19:30 | NUR ---
INSTRUCTED PATIENT TO CALL WHENEVER NEEDING HELP, DAUGHTER AT THE WINDOW OF THE PATIENT ROOM.
[2020-10-23 20:00] VITALS: BP 155/95
--- NOTE | 2020-10-23 20:30 | NUR ---
RT CAME, PUT PATIENT ON 4 LITERS N/C, 02 SATURATION - 02 SAT - 97%.
--- NOTE | 2020-10-23 21:15 | NUR ---
REQUESTED TO BE REPOSITIONED ON HIS RIGHT SIDE TO SLEEP. DAUGHTER STILL AT THE WINDOW.
--- NOTE | 2020-10-24 | NUR ---
SLEEPING COMFORTABLY. 02 SAT - 100% AT 4 LITERS VIA N/C.
[2020-10-24] MEDS: ALBUTEROL SULFATE/IPRATROPIU 3 ML SOL IH SCH ×5 (01:00→19:58)
--- NOTE | 2020-10-24 02:00 | NUR ---
STILL SLEEPING ON HIS RIGHT SIDE, REFUSED TO TURN TO THE LEFT.
[2020-10-24] MEDS: NACL 0.9% 1,000 ML IV SCH ×4 (03:03→22:36)
[2020-10-24 04:00] VITALS: BP 122/84
--- NOTE | 2020-10-24 04:00 | NUR ---
DAUGHTER STILL IN THE WINDOW, PATIENT SLEEPING COMFORTABLY, 02 SAT - 100%.
--- NOTE | 2020-10-24 05:16 | NUR ---
Patient's Plan of Care was discussed and reviewed with CAVING GUIDE: EVERETTE STEVENSON.
--- NOTE | 2020-10-24 06:53 | NUR ---
RESPIRATORY STATUS STABLE AT THIS TIME, ON 02 AT 4 LITERS CANNULA, SATURATING 100%.
--- NOTE | 2020-10-24 07:30 | NUR ---
RECEIVED PATIENT FROM BLOCK OUT MACHINE OPERATOR NURSE. A/OX4. RESPIRATIONS EVEN AND UNLABORED. ON 4 LITERS N/C SATURATING 84 - 88%. SKIN IS WARM AND DRY. IV SITE ON LFA 22G INFUSING NS WELL. INTACT AND PATENT. PLAN OF CARE DISCUSSED, VERBALIZED UNDERSTANDING. SAFETY PRECAUTIONS IN PLACE. CALL LIGHT WITHIN REACH. DENIES PAIN 0/10 AT THIS TIME. WILL CONTINUE TO MONITOR.
[2020-10-24 08:00] VITALS: BP 112/75
[2020-10-24] MEDS: ENOXAPARIN 40 MG/0.4 ML SYR SUBQ SCH (08:31)
--- NOTE | 2020-10-24 08:40 | NUR ---
ALL SCHEDULED MEDS GIVEN. PATIENT IS STABLE AND NO SIGNS OF RESPIRATORY DISTRESS NOTED. WILL CONTINUE TO MONITOR.
--- NOTE | 2020-10-24 12:00 | NUR ---
CHECKED ON PATIENT. PATIENT IS STABLE AND NO SIGNS OF RESPIRATORY DISTRESS NOTED. WILL CONTINUE TO MONITOR.
--- NOTE | 2020-10-24 14:30 | NUR ---
CHECKED ON PATIENT. PATIENT IS STABLE AND NO SIGNS OF RESPIRATORY DISTRESS NOTED. WILL CONTINUE TO MONITOR.
[2020-10-24 16:00] VITALS: BP 116/74
--- NOTE | 2020-10-24 16:00 | NUR ---
CHECKED ON PATIENT. PATIENT IS STABLE AND NO SIGNS OF RESPIRATORY DISTRESS NOTED. WILL CONTINUE TO MONITOR.
[2020-10-24] MEDS: guaiFENesin DM 200/20 MG-10 ML 10 ML UDC PO PRN ×2 (18:22→22:28)
--- NOTE | 2020-10-24 18:22 | NUR ---
PT COMPLAINED OF COUGH. ADMINISTERED ROBITUSSIN PER MD ORDERED.
--- NOTE | 2020-10-24 19:30 | NUR ---
ENDORSED TO GREENSMAN NURSE FOR CONTINUITY OF CARE. PT IS STABLE.
--- NOTE | 2020-10-24 19:31 | NUR ---
RECD. RESTING IN BED, AWAKE, A/OX3. RESPIRATION EVEN AND UNLABORED. IV OF NS INFUSING AT 100 ML/HR, RIGHT FOREARM G24. PATIENT IS ON 4 LITERS NASAL CANNULA, SATURATING 92%. USES THE URINAL. ENCOURAGED TO ALTERNATELY TURN TO THE RIGHT AND LEFT. SAFETY MEASURES ENFORCED. SIDE RAILS UP, CALL LIGHT IN REACH. BED ON ALARM. DENIES PAIN 0/10.
--- NOTE | 2020-10-24 19:31 | NUR ---
Patient's Plan of Care was discussed and reviewed with FANNY: EVERETTE. ALL NEEDS MET. WILL CONTINUE TO MONITOR.
[2020-10-24 20:00] VITALS: BP 114/70
--- NOTE | 2020-10-24 21:00 | NUR ---
CHANGED SUCTION CATH AND TUBINGS PUT ON CONTINUOS MODE, PATIENT WANTS TO SUCTION SELF WHENEVER HE IS COUGHING.
--- NOTE | 2020-10-24 22:28 | NUR ---
WITH COUGHING, MEDICATED WITH ROBITUSSIN PER MD ORDER. FAMILY AT THE WINDOW WATCHING PATIENT.
--- NOTE | 2020-10-25 | NUR ---
SLEEPING COMFORTABLY IN BED.
[2020-10-25] MEDS: ALBUTEROL SULFATE/IPRATROPIU 3 ML SOL IH SCH ×4 (01:43→20:15)
[2020-10-25] MEDS: NACL 0.9% 1,000 ML IV SCH ×2 (02:15→12:15)
--- NOTE | 2020-10-25 04:00 | NUR ---
SLEEPING ON HIS RIGHT SIDE, 02 SAT - 100% AT 4 LITERS VIA N/C.
[2020-10-25 06:14] LABS: EOSINOPHILS # (AUTO) 0.4 K/uL (0-0.4); LYMPHOCYTES # (AUTO) 1.7 K/uL (2.0-11.5); MONOCYTES # (AUTO) 0.7 K/uL (0.8-1.0); NEUTROPHILS # (AUTO) 5.2 K/uL (1.8-7.7)
[2020-10-25 06:28] LABS: PHOSPHORUS 3.6 mg/dL (2.5-4.9)
[2020-10-25 06:47] LABS: ANION GAP 6.7 (8-16); BASOPHILS # (AUTO) 0.1 K/uL (0.00-0.22); BASOPHILS % (AUTO) 0.7 % (0.0-2.0); CARBON DIOXIDE 36.7 mmol/L (21-32); CREATININE 0.4 mg/dL (0.6-1.3); EOSINOPHILS % (AUTO) 4.7 % (0.0-4.0); HEMATOCRIT 31.3 % (36-52); HEMOGLOBIN 10.1 g/dL (12.0-18.0); LYMPHOCYTES % (AUTO) 21.3 % (20.5-51.1); MEAN CORPUSCULAR HEMOGLOBIN 30 pg (27-31); MEAN CORPUSCULAR HGB CONC 32 g/dL (33-37); MONOCYTES % (AUTO) 8.2 % (1.7-9.3); NEUTROPHILS % (AUTO) 65.1 % (42.2-75.2); PLATELET COUNT (AUTO) 322 K/uL (140-450); POTASSIUM 3.4 mmol/L (3.5-5.1); RED BLOOD CELL COUNT(AUTO) 3.33 MIL/uL (4.20-6.10); RED CELL DISTRIBUTION WIDTH 16.5 % (11.6-13.7); WHITE BLOOD COUNT (AUTO) 8.1 K/uL (4.8-10.8)
--- NOTE | 2020-10-25 07:00 | NUR ---
RESPIRATORY STATUS STABLE. WILL ENDORSE TO AM SHIFT NURSE FOR CONTINUITY OF CARE.
--- NOTE | 2020-10-25 07:25 | NUR ---
REC'D REPORT FROM INSTRUMENT TECHNOLOGIST NURSE, PT ON 4L NC, RESTING, NO SIGN OF DISTRESS. STABLE
[2020-10-25 08:00] VITALS: BP 116/77
[2020-10-25] MEDS: ENOXAPARIN 40 MG/0.4 ML SYR SUBQ SCH (09:39)
[2020-10-25] MEDS: guaiFENesin DM 200/20 MG-10 ML 10 ML UDC PO PRN (14:42)
--- NOTE | 2020-10-25 14:52 | NUR ---
PT STABLE, NO SIGN OF DISTRESS, SATURATION 96%, C/O COUGH, ADMINISTERED COUGH MEDICINE PER MD ORDER, RECD CALL FROM PA, PT'S FAMILY WILL COLLECT OXYGEN FROM COMPANY TODAY AND [facility]CT [facility] TO COMMUNICATE ACQUISITIONS LOGISTICS ANALYST, THEN PATIENT MIGHT GO HOME JELENAIGHT, PT VERBALLY UNDERSTOOD, WILL ASK FAMILY TO CONTACT US ONCE OXYGEN IS IN POSSESSION OF FAMILY.
[2020-10-25 16:00] VITALS: BP 116/80
--- NOTE | 2020-10-25 16:15 | NUR ---
PT RESTING, STABLE NO SIGN OF DISTRESS
--- NOTE | 2020-10-25 17:05 | NUR ---
ENDORSED TO [facility] DIRECTOR NURSE FOR CONTINUITY OF CARE, PT TO BE DISCHARGED ON HOME O2 ON 4LNC, HAS OXYGEN AT BEDSIDE, PICKED UP FROM FAMILY AT [address], PT DISCHARGE PACKET SIGNED AND HANDED TO PT. PT'S MEDICATIONS WERE EXPLAINED IN DETAIL AND PT VERBALLY UNDERSTOOD, OXYGEN TANK NEEDS TO BE CHECKED BY RT, DOES NOT SHOW SIGNS OF O2 FLOW WHEN TURNED ON. PT VERBALIZED UNDERSTANDING OF INSTRUCTIONS. PT STABLE
[2020-10-25] MEDS ORDERED: ASPI-1205 PO (17:12)
[2020-10-25] MEDS ORDERED: ALBU-118 INH (17:12)
[2020-10-25] MEDS ORDERED: POTA10TE30 PO (17:12)
[2020-10-25 17:46] VITALS: BP 116/80
--- NOTE | 2020-10-25 19:30 | NUR ---
RECEIVED REPORT FROM JOY RN DAYSHIFT NURSE AT BEDSIDE FOR CONTINUITY OF CARE. PT LYING IN BED HOB UP 45% ALL FALLS AND ASPIRATION PRECAUTIONS IN PLACE. N/S RUNNING AT 60MLS/HR ORDERED VIA 24G ON R F/A. 02 RUNNING AT 4 LITERS VIA N/C. FAMILY AT WINDOW AWAITING DISCHARGE.
[2020-10-25 20:00] VITALS: BP 147/95
--- NOTE | 2020-10-25 20:30 | NUR ---
PT LYING IN BED V/S FOLLOWS: T 98.9 P 101 R 20 B/P 147/95 02 98% WITH 4 LITERS VIA N/C. RT AT BEDSIDE TO ASSIST WITH TEACHING REGARDING HOME 02 AND NEBULIZER TREATMENT. PT ALSO RECEIVING NEB TREATMENT AT THIS TIME.
--- NOTE | 2020-10-25 21:00 | NUR ---
PT WAS GIVEN CLEANED AND DRESSED FOR DISCHARGE. HE WAS ASSISTED IN W/C AND PLACED ON 4 LITERS VIA SUPPLEMENTAL 02. IV SITE AND WRIST BAND OFF. PT LEFT IN W/C WITH BELONGINGS IN HAND.
== END 2020-10-25 21:00 | disposition home or self-care (01) | DRG 177 ==
LOC: MED 10:15 → MTU 12:39 → MMU 08-27 18:54
PROVIDERS: ADMIT Emergency Medicine; ATTEND Emergency Medicine
PROC: 5A09357 Assistance with Respiratory Ventilation, Less than 24 Consecutive Hours, Continuous Positive Airway Pressure (ICD-10-PCS; principal; 2020-09-22)
DX: U07.1 COVID-19 (principal); J12.82 Pneumonia due to coronavirus disease 2019; J96.21 Acute and chronic respiratory failure with hypoxia; E43 Unspecified severe protein-calorie malnutrition; G93.41 Metabolic encephalopathy; E87.4 Mixed disorder of acid-base balance; E87.1 Hypo-osmolality and hyponatremia; N17.9 Acute kidney failure, unspecified; E87.0 Hyperosmolality and hypernatremia; E87.5 Hyperkalemia; E83.41 Hypermagnesemia; R94.4 Abnormal results of kidney function studies; E86.0 Dehydration; F41.9 Anxiety disorder, unspecified; E87.8 Other disorders of electrolyte and fluid balance, not elsewhere classified; D72.829 Elevated white blood cell count, unspecified; F17.210 Nicotine dependence, cigarettes, uncomplicated; Z68.24 Body mass index [BMI] 24.0-24.9, adult
CPT/HCPCS: 36415; 36600; 71045; 80048; 80053; 80305; 81001; 82550; 82553; 82728; 82803; 83036; 83605; 83615; 83735; 83880; 84100; 84132; 84436; 84439; 84443; 84479; 84484; 85025; 85379; 85384; 85610; 85651; 85730; 86140; 87040; 87070; 87081; 87086; 87205; 87804; 93005; 94640; 94660; 96365; 96367; 96375; 97110; 97112; 97116; 97161-GP; 97530; 99291; J0456; J0696; J1100; J1650; J1815; J1940; J1956; J2001; J2060; J2270; J2543; J2920; J3480; J7030; J7060; U0003

== ENCOUNTER 2020-12-14 16:35 | Emergency (ER) | payer OTHER, SELFPAY ==
[~2020-12-14] VITALS: Ht 170.2 cm; Wt 59.0 kg
[~2020-12-14 16:35] MED LIST: ALBU-118 INH; ASPI-1205 PO; POTA10TE30 PO
[2020-12-14 16:45] VITALS: BP 123/80
--- NOTE | 2020-12-14 16:45 | NUR ---
55 YO M BIB SELF FOR "OXYGEN BLOOD LEVEL" REQUEST FROM PRIMARY DOCTOR FOR INSURANCE APPROVAL FOR HOME O2. PT IS SELF PAYING FOR OXYGEN SINCE COVID DX IN SEPTEMBER. REQUIRES 2L NC. MED HX: COVID 16 OCTOBER 2020
[2020-12-14 19:01] VITALS: BP 115/76
--- NOTE | 2020-12-14 19:01 | NUR ---
Patient discharged with v/s stable. Written and verbal after care instructions given and explained. Patient verbalized understanding. Wheel Chair Assisted with steady gait. All questions addressed prior to discharge. Advised to follow up with PMD.
== END 2020-12-14 19:01 | disposition home or self-care (01) ==
LOC: MED 16:35
DX: R06.82 Tachypnea, not elsewhere classified (principal); R09.02 Hypoxemia; Z20.822 Contact with and (suspected) exposure to COVID-19
CPT/HCPCS: 99281

== ENCOUNTER 2021-04-18 12:07 | Emergency (ER) | payer OTHER, SELFPAY ==
[~2021-04-18] VITALS: Ht 167.6 cm; Wt 68.0 kg
[2021-04-18 12:11] VITALS: BP 134/91
--- NOTE | 2021-04-18 12:15 | NUR ---
PT TAKEN TO BED 6.
--- NOTE | 2021-04-18 12:20 | NUR ---
55/M sent over from PCP office for an ABG test. Pt needs an ABG per his PCP to get approval for home oxygen. Pt currently using 2L oxygen continuously s/p Covid. Pt has no medical complaint at this time. Denies SOB or chest pain. Denies any pain.
--- NOTE | 2021-04-18 12:25 | NUR ---
ROOM AIR OXYGEN SATURATION 88%. RT AT BEDSIDE FOR ABG DRAW.
[2021-04-18 13:14] VITALS: BP 134/91
--- NOTE | 2021-04-18 13:14 | NUR ---
Patient discharged with v/s stable. Written and verbal after care instructions given and explained. Patient verbalized understanding. Ambulatory with steady gait. All questions addressed prior to discharge. Advised to follow up with PMD. Copy of ABG results provided to patient for follow up.
== END 2021-04-18 13:14 | disposition home or self-care (01) ==
LOC: MED 12:07
DX: R09.02 Hypoxemia (principal)
CPT/HCPCS: 36600; 82803; 99283